=== PATIENT | male | born 1950 | race Caucasian/White ===

== ENCOUNTER 2017-09-01 07:22 | Day surgery (SDC) | payer MEDICARE, SELFPAY | END 2017-09-01 13:11 | disposition home or self-care (01) | PROVIDERS: Family Provider Family Medicine; Visit Provider Internal Medicine | DX: I25.119 Atherosclerotic heart disease of native coronary artery with unspecified angina pectoris (principal); I12.9 Hypertensive chronic kidney disease with stage 1 through stage 4 chronic kidney disease, or unspecified chronic kidney disease; N18.9 Chronic kidney disease, unspecified; Z95.1 Presence of aortocoronary bypass graft; I70.1 Atherosclerosis of renal artery | CPT/HCPCS: 36252; 37236; 37237; 80048; 85025; 85347; 93459; 99152; C1725; C1760; C1769; C1894; J1644; Q9967 ==

== ENCOUNTER → 2018-03-02 09:54 | Outpatient (CLI) | payer MEDICARE, SELFPAY ==
--- NOTE | 2018-03-02 10:08 | CT_ITS ---
CT abdomen pelvis wo con CLINICAL HISTORY: TECHNIQUE: Axial images obtained with sagittal and coronal reformats. All CT scans at this facility use one or more dose reduction techniques, viz.: automated exposure control; ma/kV adjustment per patient size (including targeted exams where dose is matched to indication; i.e. head) or iterative reconstruction technique. COMPARISON: CT scan abdomen pelvis 11/18/2007 PROCEDURE: No IV or oral contrast was used. FINDINGS: Lung bases: There is minimal post inflammatory scarring right middle lobe and right lower lobe. There is no pleural fluid. ABDOMEN: The liver and spleen appear grossly normal. The stomach is distended with ingested food particles. 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 There is a curious tubular high density structure overlying the splenic vein but this was seen on the previous study in 2007 and is unchanged in appearance and could be a broken portion of a catheter. The adrenal glands are normal. There are bilateral renal artery stents which were not seen on the previous study. The left kidney is lower limits of normal in size with mild cortical thinning and scarring. There is a nonobstructing calculus midpole right kidney. There is no obstructive uropathy of either kidney. There is prominent arteriosclerotic calcification of the abdominal aorta and proximal iliac arteries but there is no aneurysm. Small bowel appears normal. There is been previous appendectomy. There is a large amount stool in the cecum and ascending colon with scattered stool and gas in the descending colon. There is an opaque mesh in the midabdomen for previous ventral hernia repair the urinary bladder appears normal, the prostate is upper limits of normal in size. IMPRESSION: Postsurgical changes of the upper abdomen, bilateral renal artery stents and other nonacute findings as described.
== END ==
PROVIDERS: PCP Nurse Practitioner; Visit Provider Nurse Practitioner
DX: I82.3 Embolism and thrombosis of renal vein (principal)
CPT/HCPCS: 74176

== ENCOUNTER → 2018-04-20 13:43 | Outpatient (CLI) | payer MEDICARE, SELFPAY ==
--- NOTE | 2018-04-20 13:56 | CT_ITS ---
CT chest wo con HISTORY: Shortness of air, hemoptysis the left left ITS.REASON: HEMOPTYSIS ORDERING PHYSICIAN: Louise Lenz PATIENT AGE: 67 years COMPARISON: None Technique: Axial images obtained with sagittal and coronal reformats. All CT scans at the facility use one or more dose reduction, viz: automated exposure control, ma/kV adjustment per patient size (including targeted exams where dose is matched to indication, i.e. head), or iterative reconstruction technique. FINDINGS: Gas density is noted anterior to the upper trachea consistent with an old tracheostomy site. There has been prior median sternotomy. Coronary artery calcifications are present. Normal heart size. No evidence of pericardial effusion. There is a patulous air-filled esophagus. Extensive pulmonary fibrotic changes are once again noted. Prominent cavity is present in the right upper lobe posteriorly with nodular thickening of the cavity wall. The cavity itself measures 5.3 x 2.4 cm not significant change. Previously there was an air-fluid level within the cavity not readily apparent at this time. There is however nodularity along the inferior surface of the cavity is not readily apparent on the previous study. There is a cavitary lesion which extends from the larger cavity along its anterior and inferior aspect which has developed since the previous exam and extends inferiorly in the region of the major fissure. This area measures 4 x 1.8 cm. Bronchiectasis is present in the right apex similar to the previous exam Pulmonary fibrotic changes are present in the lower lobes. A fissural nodule noted in the right minor fissure at 8 mm. In the left apex there is pleural-parenchymal thickening as before with bronchiectasis similar to the previous study. Upper abdominal images once again shows pneumobilia. There is a moderate amount retained colonic feces. A linear opacity is present in the region of the splenic vein as previously described IMPRESSION: 1. Cavitary changes in the right upper lobe as described above. There is been inferior extension of the cavitation along the major fissure. The wall of the cavity is somewhat thickened and nodular along its posterior aspect. Differential diagnosis would include active tuberculosis, fungal infection with fungal ball, or cavitating neoplasm. There is associated bronchiectasis in the right upper lobe. 2. Persistent pleural parenchymal thickening in the left apex with bronchiectasis. 3. Pulmonary fibrotic changes
[2018-04-20 15:22] LABS: Alanine Aminotransferase 20 U/L (12-78); Albumin Level 2.8 gm/dL (3.4-5.0); Albumin/Globulin Ratio 0.6 (1.1-1.8); Alkaline Phosphatase 81 U/L (46-116); Anion Gap 11.4 mEq/L (5-15); Aspartate Amino Transferase 20 U/L (15-37); Bilirubin,Total 0.3 mg/dL (0.2-1.0); Blood Urea Nitrogen 28 mg/dL (7-18); Calcium 8.6 mg/dL (8.5-10.1); Carbon Dioxide 29 mmol/L (21.0-32.0); Chloride 104 mmol/L (98-107); Creatinine,Serum 1.89 mg/dL (0.70-1.30); Estimated Glomerular Filt Rate 36 ml/min (>60); GFR (African American) 44 ML/MIN (>60); Globulin 4.5 gm/dl (1.3-3.2); Glucose 251 mg/dL (74-106); Potassium 4.4 mmoL/L (3.5-5.1); Sodium 140 mmol/L (136-145); Total Protein,Serum 7.3 gm/dL (6.4-8.2)
== END ==
PROVIDERS: Internal Medicine; PCP Nurse Practitioner; Visit Provider Nurse Practitioner
DX: R04.2 Hemoptysis (principal)
CPT/HCPCS: 36415; 71250; 80053; 87305

== ENCOUNTER → 2018-04-24 14:01 | Outpatient (POV) | payer MEDICARE, SELFPAY | PROVIDERS: PCP Nurse Practitioner; Visit Provider Internal Medicine | DX: Z00.00 Encounter for general adult medical examination without abnormal findings (principal) ==

== ENCOUNTER → 2018-06-22 12:33 | Outpatient (CLI) | payer MEDICARE, SELFPAY ==
--- NOTE | 2018-06-22 12:37 | US_ITS ---
US kidney retroperitoneal comp HISTORY: ITS.REASON: BENIGHN HYPERTENSION, DIABETIC NEPHROPATHY ORDERING PHYSICIAN: Shayan Ash PATIENT AGE: 67 years Comparison: None FINDINGS: RIGHT KIDNEY:Unremarkable. Normal size and echogenicity. No hydronephrosis 10 x 6 x 7 cm LEFT KIDNEY:9 x 4 x 5.5 cm. There is cortical thinning. No hydronephrosis. There is a 16 mm cyst along the lower pole. OTHER FINDINGS: No other pertinent findings IMPRESSION: 1. No hydronephrosis. 2. 16 mm cyst lower pole left kidney with left renal cortical thinning
== END ==
PROVIDERS: PCP Nurse Practitioner; Visit Provider Internal Medicine Nephrology
DX: N18.3 Chronic kidney disease, stage 3 (moderate) (principal); E11.21 Type 2 diabetes mellitus with diabetic nephropathy; E78.5 Hyperlipidemia, unspecified; I70.1 Atherosclerosis of renal artery
CPT/HCPCS: 76770

== ENCOUNTER → 2018-06-27 08:30 | Outpatient (CLI) | payer MEDICARE, SELFPAY ==
[2018-06-27 08:58] LABS: Microscopic, Urine URINE MICROSCOPIC (MICROSCOPIC)
[2018-06-27 09:29] LABS: Basophils % 0.5 % (0.1-2.0); Eosinophils # 0.2 K/mm3 (0.0-0.4); Eosinophils % 2.8 % (0.1-12.0); Hematocrit 44.7 % (42.0-52.0); Lymphocytes # 1.5 K/mm3 (0.7-4.5); Lymphocytes % 21.8 K/mm3 (10-50); Mean Corpuscular HGB Conc 31.2 g/dL (31.8-35.4); Mean Corpuscular Hemoglobin 25.9 pg (27.0-31.2); Mean Platelet Volume 8.1 fl (7.4-10.4); Monocytes # 0.6 K/mm3 (0.1-1.0); Monocytes % 8.5 % (1.7-9.3); Neutrophils # 4.4 K/mm3 (1.8-7.8); Neutrophils % 66.4 % (37.0-80.0); Platelet Count 156 K/mm3 (142-424); Red Blood Count 5.39 M/mm3 (4.60-6.20); Red Cell Distribution Width 14.8 % (11.5-17.5); White Blood Count 6.7 K/mm3 (4.8-10.8)
[2018-06-27 09:45] LABS: Appearance,Urine CLEAR (Clear); Bilirubin,Urine Negative (Negative); Blood, Urine Negative (Negative); Color,Urine YELLOW (Yellow); Glucose,Urine (UA) 3+ (Negative); Ketones,Urine Negative (Negative); Leukocyte Esterase,Urine Negative (Negative); Nitrate,Urine Negative (Negative); Protein,Urine Negative (Negative); Specific Gravity, Urine 1.025 (1.005-1.030); Urobilinogen,Urine 0.2 EU/dl (0.2)
[2018-06-27 09:56] LABS: Bacteria,Urine Trace /lpf; Squamous Epithelial Cell,Urine Occasional #/hpf (0-5)
[2018-06-27 10:40] LABS: Albumin Level 3.1 gm/dL (3.4-5.0); Anion Gap 9.9 mEq/L (5-15); Blood Urea Nitrogen 15 mg/dL (7-18); Calcium 8.3 mg/dL (8.5-10.1); Carbon Dioxide 30 mmol/L (21.0-32.0); Chloride 106 mmol/L (98-107); Creatinine,Serum 1.28 mg/dL (0.70-1.30); Estimated Glomerular Filt Rate 56 ml/min (>60); GFR (African American) 68 ML/MIN (>60); Glucose 107 mg/dL (74-106); Phosphorous 3.2 mg/dL (2.4-4.9); Potassium 3.9 mmoL/L (3.5-5.1); Sodium 142 mmol/L (136-145)
[2018-06-28 11:17] LABS: Creatinine, Urine 128.7 mg/dL (Not Estab.)
[2018-06-29 09:02] LABS: Parathyroid Hormone Intact 51 pg/mL (15-65)
== END ==
PROVIDERS: PCP Nurse Practitioner; Visit Provider Internal Medicine Nephrology
DX: I10 Essential (primary) hypertension (principal); E11.21 Type 2 diabetes mellitus with diabetic nephropathy; E78.5 Hyperlipidemia, unspecified; I70.1 Atherosclerosis of renal artery
CPT/HCPCS: 36415; 80069; 81001; 82043; 82570; 83970; 85025

== ENCOUNTER → 2018-07-30 11:37 | Outpatient (CLI) | payer MEDICARE, SELFPAY ==
[2018-07-30 12:33] LABS: Alanine Aminotransferase 26 U/L (12-78); Albumin Level 3.3 gm/dL (3.4-5.0); Albumin/Globulin Ratio 0.8 (1.1-1.8); Alkaline Phosphatase 86 U/L (46-116); Anion Gap 11.9 mEq/L (5-15); Aspartate Amino Transferase 31 U/L (15-37); Bilirubin,Total 0.3 mg/dL (0.2-1.0); Blood Urea Nitrogen 19 mg/dL (7-18); Calcium 8.1 mg/dL (8.5-10.1); Carbon Dioxide 28 mmol/L (21.0-32.0); Chloride 104 mmol/L (98-107); Creatinine,Serum 1.58 mg/dL (0.70-1.30); Estimated Glomerular Filt Rate 44 ml/min (>60); GFR (African American) 54 ML/MIN (>60); Glucose 332 mg/dL (74-106); Potassium 3.9 mmoL/L (3.5-5.1); Sodium 140 mmol/L (136-145); Total Protein,Serum 7.3 gm/dL (6.4-8.2)
== END ==
PROVIDERS: Visit Provider Internal Medicine
DX: B49 Unspecified mycosis (principal); Z79.899 Other long term (current) drug therapy
CPT/HCPCS: 36415; 80053; 80299

== ENCOUNTER → 2018-08-21 14:51 | Outpatient (POV) | payer MEDICARE, SELFPAY | PROVIDERS: Visit Provider Internal Medicine | DX: Z00.00 Encounter for general adult medical examination without abnormal findings (principal) ==

== ENCOUNTER → 2018-11-20 09:55 | Outpatient (CLI) | payer MEDICARE, SELFPAY ==
--- NOTE | 2018-11-20 10:08 | CT_ITS ---
CT chest wo con HISTORY: Shortness of breath, follow-up pulmonary nodules, follow-up cavitary lesions ITS.REASON: SOB ORDERING PHYSICIAN: Per Suazo MD PATIENT AGE: 68 years COMPARISON: 04/20/2018 Technique: Axial images obtained following the administration of 75 mL of Optiray 350 . Sagittal, and coronal reformatted images are also generated and reviewed. All CT scans at the facility use one or more dose reduction, viz: automated exposure control, ma/kV adjustment per patient size (including targeted exams where dose is matched to indication, i.e. head), or iterative reconstruction technique. FINDINGS: Atherosclerotic changes are present in the thoracic aorta. Prior CABG. There is normal heart size. There are a few small mediastinal lymph nodes appear stable. There is extensive scarring in the lung apices with consolidation/collapse of the left upper lobe apical posterior segment with diffuse air bronchograms and bronchiectasis in this collapsed segment. Volume loss also noted in the right upper lobe with bronchiectasis. Right upper lobe cavity once again noted not significant changed with 5.7 x 2.4 cm. The nodularity along the lower aspect of the cavity however has shown improvement. The cavity extends inferiorly along the major fissure similar to the previous study there is volume loss of the apical and posterior segments of the right upper lobe as before. There is a stable 6 mm nodule along the minor fissure on the right unchanged. Pulmonary fibrotic changes are present in the lower lobes peripherally prominent on the right side than the left side but not significantly changed. There is mild dilatation of the thoracic esophagus nonspecific No acute bony findings. Upper abdominal images again demonstrates a linear high density structure within the splenic vein possibly related to a broken off catheter. Soft tissue density is noted inferior to the left lobe of liver cyst with postsurgical changes and unopacified bowel from prior Whipple procedure. IMPRESSION: 1. Extensive apical scarring with chronic volume loss with a cavity in the right upper lobe which is not significant changed in size. The nodularity along the lower aspect of the right upper lobe cavity however has shown improvement. 2. Pulmonary fibrotic changes with COPD. 3. Other nonacute findings as described above
[2018-11-20 13:02] VITALS: BP 114/60; BP 126/69; PULSE 90; PULSE 91; RESP 16; RESP 20; O2SAT 93; O2SAT 97
[2018-11-20 13:05] VITALS: PULSE 91
== END ==
PROVIDERS: PCP Nurse Practitioner; Visit Provider Internal Medicine
DX: R91.8 Other nonspecific abnormal finding of lung field (principal); R06.02 Shortness of breath
CPT/HCPCS: 71250; 94060; 94618; 94640

== ENCOUNTER → 2018-12-17 08:13 | Outpatient (POV) | payer MEDICARE, SELFPAY | PROVIDERS: Visit Provider Internal Medicine | DX: Z00.00 Encounter for general adult medical examination without abnormal findings (principal) ==

== ENCOUNTER → 2019-07-02 08:11 | Outpatient (CLI) | payer MEDICARE, SELFPAY ==
[2019-07-02 09:11] LABS: Basophils # 0.1 K/mm3 (0-0.2); Eosinophils # 0.2 K/mm3 (0.0-0.4); Eosinophils % 3.3 % (0.1-12.0); Hematocrit 49.2 % (42.0-52.0); Hemoglobin 15.5 g/dL (14.1-18.0); Lymphocytes # 2.1 K/mm3 (0.7-4.5); Lymphocytes % 33.5 % (10-50); Mean Corpuscular HGB Conc 31.6 g/dL (31.8-35.4); Mean Corpuscular Hemoglobin 27.7 pg (27.0-31.2); Mean Corpuscular Volume 87.7 fl (80-94); Monocytes # 0.4 K/mm3 (0.1-1.0); Monocytes % 6.4 % (1.7-9.3); Neutrophils # 3.5 K/mm3 (1.8-7.8); Neutrophils % 55.8 % (37.0-80.0); Platelet Count 147 K/mm3 (142-424); Red Blood Count 5.61 M/mm3 (4.60-6.20); Red Cell Distribution Width 13.6 % (11.5-17.5); White Blood Count 6.3 K/mm3 (4.8-10.8)
[2019-07-02 10:22] LABS: Albumin Level 3.5 gm/dL (3.4-5.0); Anion Gap 13.2 mEq/L (5-15); Blood Urea Nitrogen 20 mg/dL (7-18); Calcium 8.6 mg/dL (8.5-10.1); Carbon Dioxide 30 mmol/L (21.0-32.0); Chloride 104 mmol/L (98-107); Creatinine,Serum 1.65 mg/dL (0.70-1.30); Estimated Glomerular Filt Rate 42 ml/min (>60); GFR (African American) 51 ML/MIN (>60); Glucose 136 mg/dL (74-106); Phosphorous 3.9 mg/dL (2.4-4.9); Potassium 4.2 mmoL/L (3.5-5.1); Sodium 143 mmol/L (136-145)
[2019-07-03 13:16] LABS: Creatinine, Urine 159.1 mg/dL (Not Estab.); Microalbumin, Urine 81.6 ug/mL (Not Estab.)
[2019-07-04 11:02] LABS: Parathyroid Hormone Intact 41 pg/mL (15-65)
== END ==
PROVIDERS: Visit Provider Internal Medicine Nephrology
DX: N18.3 Chronic kidney disease, stage 3 (moderate) (principal); E11.21 Type 2 diabetes mellitus with diabetic nephropathy; E78.00 Pure hypercholesterolemia, unspecified; I70.1 Atherosclerosis of renal artery; Z79.84 Long term (current) use of oral hypoglycemic drugs
CPT/HCPCS: 36415; 80069; 82043; 82570; 83970; 85025

== ENCOUNTER → 2019-09-17 10:49 | Outpatient (CLI) | payer MEDICARE, SELFPAY ==
--- NOTE | 2019-09-17 11:15 | XR_ITS ---
PROCEDURE: XR SHOULDER LT MIN 2V CLINICAL INDICATION: LT SHOULDER PAIN Left shoulder pain COMPARISON: [id number] VIEWS from 05/16/2015 FINDINGS: No significant subacromial stenosis.No fracture, dislocation, lytic change, or blastic change evident. No significant degenerative change IMPRESSION: No acute findings. Dictated by: Job Garay MD 09/17/2019 14:38 Electronically signed by Job Garay MD in [facility] 09/17/2019 14:38
== END ==
PROVIDERS: PCP Nurse Practitioner Family; Visit Provider Nurse Practitioner Family
DX: M25.512 Pain in left shoulder (principal)
CPT/HCPCS: 73030

== ENCOUNTER → 2020-05-11 16:03 | Outpatient (CLI) | payer MEDICARE, SELFPAY ==
--- NOTE | 2020-05-11 | XR_ITS ---
PROCEDURE: XR CHEST 2V CLINICAL HISTORY: Dizziness and cough, shortness of air, former smoker COMPARISON: CR CXR2 CHEST-AP VIEW ONLY from 09/10/[address] chest wo con from 11/20/2018 FINDINGS: There has been a prior CABG. There is prominent biapical pleural thickening. There is a cavity in the right apex which has a similar appearance on the previous exam and prior chest CT parenchymal opacity is present in the right apex medially. Chronic pulmonary fibrotic changes are present in the lower lobes. No new areas of consolidation are evident. No acute bony findings IMPRESSION: Chronic pleural parenchymal scarring with pulmonary fibrosis and right apical cavity Dictated by: Job Garay MD 05/11/2020 16:40 Job Garay MD in [facility] 05/11/2020 16:40
== END ==
PROVIDERS: PCP Nurse Practitioner Family; Visit Provider Nurse Practitioner Family
DX: R42 Dizziness and giddiness (principal); R05 Cough
CPT/HCPCS: 71046

== ENCOUNTER → 2020-06-16 12:41 | Outpatient (CLI) | payer MEDICARE, SELFPAY ==
--- NOTE | 2020-06-16 12:41 | CT_ITS ---
PROCEDURE: CT CHEST WO CON CLINICAL INDICATION: Hemoptysis Copd COMPARISON: CT CHESTWO CT chest wo con from 11/20/2018 TECHNIQUE: Axial images obtained with sagittal and coronal reformats. All CT scans at the facility use one or more dose reduction, viz: automated exposure control, ma/kV adjustment per patient size (including targeted exams where dose is matched to indication, i.e. head), or iterative reconstruction technique. FINDINGS: HEART AND MEDIASTINAL STRUCTURES: There has been a prior median sternotomy. The extensive coronary artery calcification is present. There is mild nonspecific thickening of the esophagus. LUNGS AND PLEURAL SPACES: Extensive biapical pleural parenchymal thickening is noted with cavitation in the right apex. There is left apical volume loss with air bronchograms with bronchiectasis in both lung apices. There is a small mildly thickened wall cavity present in the right upper lobe laterally. The cavity portion is slightly smaller compared to the previous exam with no change in the soft tissue dimensions. Fissural nodules present in the right minor fissure containing calcium. Right hemidiaphragm is elevated. There are pulmonary fibrotic changes in the lung bases. There is some scarring noted in the right lower lobe posteriorly with chronic linear density. No new areas of consolidation are evident. BONY STRUCTURES: No acute bony abnormalities apparent. UPPER ABDOMEN: Pneumobilia is noted. Moderate amount of retained colonic feces. Prior cholecystectomy ADDITIONAL FINDINGS: No other significant abnormalities. IMPRESSION: Overall no significant change in the appearance of the chest with biapical pleural parenchymal thickening, right apical cavity, small cavity in the right upper lobe laterally, upper lobe bronchiectasis with chronic volume loss in the left apex and pulmonary fibrosis. Dictated by: Job Garay MD 06/17/2020 11:29 Job Garay MD in [facility] 06/17/2020 11:29
== END ==
PROVIDERS: PCP Nurse Practitioner Family; Visit Provider Internal Medicine Pulmonary Disease
DX: R04.2 Hemoptysis (principal)
CPT/HCPCS: 71250

== ENCOUNTER 2020-06-20 09:46 | Emergency (ER) | payer MEDICARE, SELFPAY ==
[2020-06-20 09:47] VITALS: BP 119/71; PULSE 53; RESP 16; TEMP 36.6; O2SAT 95; BMI 24.3
--- NOTE | 2020-06-20 09:53 | ECG_ITS ---
APPROVED REPORT Exam: Resting ECG HR:53 bpm ECG Measurements Heart Rate 53 AXES CA 222 P 50 QRSd 88 QRS 65 QT 436 T 108 QTc 409 Conclusion Sinus bradycardia with 1st degree AV block Nonspecific ST-T wave abnormalities Abnormal ECG Electronically signed by : Angel Sheppard, 06/22/2020 09:26:55
[2020-06-20 10:05] VITALS: BP 100/58; BP 71/45; PULSE 56; PULSE 85
--- NOTE | 2020-06-20 10:07 | [facility].EDDIZZ ---
ED Disposition Clinical Impression: Orthostatic hypotension, Prerenal azotemia Disposition: Home, Self-Care Condition on Discharge: Fair Additional Instructions: increase fluid intake and remain seated for 1-2min. prior to standing Referrals: Ema Curran APRN [Primary Care Provider] - - Critical Care Critical Care Time: No Attestation: On , the high probability of a clinically significant, sudden or life threatening deterioration of the following system(s) required my full and direct attention, intervention and personal management. The time I documented below is in addition to time spent performing reported procedures but includes the following listed in this critical care notation. Medical Decision Making - Medical Records Medical records reviewed: Yes: I reviewed the patient's medical records. - Pedro Inquiry Pt receiving controlled substance: No Vital Signs: 06/20/20 09:47 06/20/20 10:05 06/20/20 10:29 Temperature 97.9 F Temperature Source Oral Pulse Rate [Orthostatic Lying] 56 L Pulse Rate [Orthostatic Standing] 85 Pulse Rate [Radial] 53 L 58 L Respiratory Rate 16 18 Blood Pressure [Orthostatic Lying] 100/58 L Blood Pressure [Orthostatic Standing] 71/45 L Blood Pressure [Right Arm] 119/71 102/54 L Blood Pressure Mean [Right Arm] 87 70 Blood Pressure Source [Right Arm] Automatic Cuff Blood Pressure Position [Right Arm] Sitting Sitting 02 Sat by Pulse Oximetry 95 95 Oxygen Delivery Method Room Air Room Air - Lab Data Lab results reviewed: Yes: I reviewed the patient's lab results. Lab Results 06/20/20 10:00: WBC 8.1, RBC 5.61, Hgb 15.5, Hct 49.5, MCV 88.2, MCH 27.7, MCHC 31.4 L, RDW 14.3, Plt Count 173, MPV 8.2, Neut % (Auto) 66.1, Lymph % (Auto) 25.3, Travis % (Auto) 6.1, Eos % (Auto) 1.8, Baso % (Auto) 0.8, Neut # (Auto) 5.3, Lymph # (Auto) 2.0, Travis # (Auto) 0.5, Eos # (Auto) 0.2, Baso # (Auto) 0.1 06/20/20 10:00: Sodium 138, Potassium 4.4, Chloride 101, Carbon Dioxide 27, Anion Gap 14.4, BUN 36 H, Creatinine 2.00 H, Estimated Creat Clear 40, Estimated GFR 33 L, Est GFR ( Amer) 41 L, Glucose 254 H, Calcium 9.3, Troponin I < 0.01 Result diagrams: 06/20/20 10:00 06/20/20 10:00 Orders (Tests/Meds): ED MEDICATIONS Generic Name Dose Route Start Last Admin Trade Name Freq PRN Reason Stop Dose Admin Sodium Chloride 500 mls @ 999 mls/hr 06/20/20 10:15 06/20/20 10:16 Sod Chlor 0.9% 1000ml Bag IV 06/20/20 10:45 999 mls/hr .Q31M JEIMY Administration ORDERS Category Date Time Status Portable CXR [XR chest portable] Stat Exams 06/20/20 10:12 Taken Troponin I Q3H Lab 06/20/20 13:15 Ordered Troponin I Q3H Lab 06/20/20 16:15 Ordered - ECG Data Tracing #1 ECG initial impression date: 06/20/20 ECG initial impression time: 09:55 Arrhythmias present: sinus mindy, other (1st degree AV block pr interval 222ms) Conduction abnormalities present: 1st degree AV block Dizzy HPI - General Chief Complaint: Dizziness Stated Complaint: dizzy Time Seen by Provider: 06/20/20 10:00 Mode of Arrival: Wheelchair Source of Information: Patient Limitations: No Limitations Description of Symptoms (Recalled from ER Triage Doc. by RN): to ed per pvt car with c/o dizziness x several days pt states today became unbalanced and fell backwards. pt denies any injury after fall. pt denies nausea, vomiting, chest pain. pt wears o2 at night but has been wearing o2 during the day. - History of Present Illness HPI Narrative: This is a [age]-year-old male that presents with dizziness and fall prior to arrival. Patient got out of bed this morning began to walk toward his bedroom door when he felt dizzy immediately turned back and try to get to the bed however fell on the floor. Patient denies any injury as a result of his fall. Patient feels relatively back to normal with mild general weakness. He denies any focal weakness or deficit. No headache or change in
[2020-06-20 10:10] LABS: Basophils # 0.1 K/mm3 (0-0.2); Basophils % 0.8 % (0.1-2.0); Eosinophils # 0.2 K/mm3 (0.0-0.4); Eosinophils % 1.8 % (0.1-12.0); Hematocrit 49.5 % (42.0-52.0); Hemoglobin 15.5 g/dL (14.1-18.0); Lymphocytes % 25.3 % (10-50); Mean Corpuscular HGB Conc 31.4 g/dL (31.8-35.4); Mean Corpuscular Hemoglobin 27.7 pg (27.0-31.2); Mean Corpuscular Volume 88.2 fl (80-94); Mean Platelet Volume 8.2 fl (7.4-10.4); Monocytes # 0.5 K/mm3 (0.1-1.0); Monocytes % 6.1 % (1.7-9.3); Neutrophils # 5.3 K/mm3 (1.8-7.8); Neutrophils % 66.1 % (37.0-80.0); Platelet Count 173 K/mm3 (142-424); Red Blood Count 5.61 M/mm3 (4.60-6.20); Red Cell Distribution Width 14.3 % (11.5-17.5); White Blood Count 8.1 K/mm3 (4.8-10.8)
[2020-06-20 10:11] LABS: Chloride 101 mmol/L (98-107); Potassium 4.4 mmoL/L (3.5-5.1); Sodium 138 mmol/L (136-145)
--- NOTE | 2020-06-20 10:12 | XR_ITS ---
PROCEDURE: XR CHEST PORTABLE Referring Doctor: Owen Melgar Patient Age:69Y CLINICAL HISTORY: orthostasis Former smoker open-heart surgery CABG history COMPARISON: CT CT CHEST WO CON from 06/16/2020CXR August 2015 and May 11, 2020 . 1 FINDINGS: AP portable upright chest performed today is compared to previous CXR August 2015 and May 11, 2020 . The patient has had abundant chronic changes bilateral Prominent apical pleural and parenchymal scarring bilaterally again noted and appears similar with some retraction of the hilar regions bilaterally due to such but Left chest: Chronic changes towards the bases most evident towards left lung base. A difficult to exclude a subtle superimposed infiltrate here at the left lung base but most likely mainly viewing chronic changes and superimposed upon rib density accentuated by today's mall plant caretaker portable technique. If there are any respiratory symptoms a progressive chest symptoms follow-up two-view chest. Recommended Right chest:Elevation right hemidiaphragm again noted. Coarsening markings right lung base just above right hemidiaphragm seen to be most likely chronic in nature of and only slightly accentuated when compared April-most likely due to today's technique. Doubt significant change here at right lung base since April. Previous sternotomy and CABG. Heart appears upper normal in size but vascularity appears normal to upper normal. potline monitor leads are in place. Chest wall stable unremarkable. A now see that there is a recent CT chest from 06/16/2020 which shows basilar fibrotic again supporting we more likely viewing chronic changes in these areas. Chronic apical pleural thickening IMPRESSION: Abundant chronic changes bilaterally. . Prominent apical pleural and parenchymal scarring Initially possible subtle additional infiltrate at left lung base superimposed upon chronic changes-. However reviewing 06/16/[address] more likely accentuation of markings today merely due to today's higher contrast portable CXR technique ... Overall nothing definitively acute. If symptoms progress follow-up two-view chest recommended CABG Dictated by: Virgilio Chapa MD 06/20/2020 12:14 Virgilio Chapa MD in [facility] 06/20/2020 12:14
[2020-06-20 10:14] LABS: Anion Gap 14.4 mEq/L (5-15); Blood Urea Nitrogen 36 mg/dl (9-20); Calcium 9.3 mg/dl (8.4-10.2); Carbon Dioxide 27 mmol/L (22.0-30.0); Creatinine Clearance Estimated 40 mL/min (50-200); Estimated Glomerular Filt Rate 33 ml/min (>60); GFR (African American) 41 ML/MIN (>60); Glucose 254 mg/dl (74-100)
[2020-06-20 10:27] LABS: Troponin I < 0.01 ng/ml (0.00-0.034)
[2020-06-20 10:29] VITALS: BP 102/54; PULSE 58; RESP 18; O2SAT 95
[2020-06-20 11:09] VITALS: BP 111/59; PULSE 57; RESP 16; O2SAT 94
[2020-06-20 11:14] VITALS: BP 111/59; PULSE 57; RESP 15; TEMP 36.6; O2SAT 95
== END 2020-06-20 11:27 | disposition home or self-care (01) ==
PROVIDERS: Emergency Provider Emergency Medicine; PCP Nurse Practitioner Family
DX: I95.1 Orthostatic hypotension (principal); R39.2 Extrarenal uremia; I25.2 Old myocardial infarction; I25.10 Atherosclerotic heart disease of native coronary artery without angina pectoris; E11.65 Type 2 diabetes mellitus with hyperglycemia; K21.9 Gastro-esophageal reflux disease without esophagitis; I10 Essential (primary) hypertension; E78.5 Hyperlipidemia, unspecified; E03.9 Hypothyroidism, unspecified; Z87.891 Personal history of nicotine dependence; Z95.1 Presence of aortocoronary bypass graft; Z79.899 Other long term (current) drug therapy
CPT/HCPCS: 71045; 80048; 84484; 85025; 93005; 96365; 99283

== ENCOUNTER → 2020-06-25 14:51 | Outpatient (CLI) | payer MEDICARE, SELFPAY ==
[2020-06-25 17:12] LABS: NT Pro Brain Natriuretic Pep. 272 pg/mL (0-125)
--- NOTE | 2020-06-29 14:06 | PC.NURSE ---
PATIENT HAD CARDIAC EVENT MONITOR PLACED - BUT RETURNED DEVICE AND STATED HE WAS NOT GOING TO CONTINUE WITH THIS - NO CHARGE TO PATIENT.
== END ==
PROVIDERS: PCP Nurse Practitioner Family; Visit Provider Internal Medicine Cardiovascular Disease
DX: E78.2 Mixed hyperlipidemia (principal); I10 Essential (primary) hypertension; I20.9 Angina pectoris, unspecified; I70.1 Atherosclerosis of renal artery; I73.9 Peripheral vascular disease, unspecified; I95.1 Orthostatic hypotension; R06.00 Dyspnea, unspecified; Z95.1 Presence of aortocoronary bypass graft
CPT/HCPCS: 36415; 83880; 93270

== ENCOUNTER → 2020-07-02 08:21 | Outpatient (CLI) | payer MEDICARE, SELFPAY ==
--- NOTE | 2020-07-02 08:22 | CA_ITS ---
APPROVED REPORT Web Development Instructor: Christina Zuleta RVT Study Quality: Good Indications: htn, hx mateo renal stenting 2 yrs ago Risk Factors Hypertension Surgery/Intervention Renal Artery Stent : Renal Artery Doppler Origin (R) 179.1/ cm/sec Proximal (R) 140.1/ cm/sec Mid (R) 123.9/ cm/sec Distal (R) 79.1/ cm/sec Renal Aorta Ratio (R) 1.90 Segmental A. (R) 61.5/8.6 cm/sec RI: 0.86 Segmental A. Sup (R) 61.5/8.6 cm/sec Segmental A. Mid (R) 55.6/6.6 cm/sec Segmental A. Inf (R) 34.9/8.5 cm/sec Origin (L) 133.2/ cm/sec Proximal (L) 122.0/ cm/sec Mid (L) 91.8/ cm/sec Distal (L) 86.4/ cm/sec Renal Aorta Ratio (L) 1.41 Segmental A. (L) 62.0/12.9 cm/sec RI: 0.79 Segmental A. Sup (L) 62.0/12.9 cm/sec Segmental A. Mid (L) 43.8/2.2 cm/sec Segmental A. Inf (L) 37.8/13.0 cm/sec Renal Measurements Kidney Size (R) 9.8x5.7 cm Cortical Thickness (R) 1.8 cm Kidney Size (L) 8.9x5.3 cm Cortical Thickness (L) 0.7 cm Findings Study suggests no evidence of stenosis of the bilateral renal arteries. Cortical thinning seen left kidney. Conclusion Study suggests no evidence of stenosis of the bilateral renal arteries. Cortical thinning seen left kidney. Electronically signed by : Job Garay MD 07/02/2020 13:54:10
--- NOTE | 2020-07-02 08:22 | CA_ITS ---
APPROVED REPORT Electronic Device Repairer: Christina Zuleta RVT Laterality: Bilateral Study Quality: Good Indications: syncope Risk Factors Hypertension: Doppler Spectral Velocity Analysis ECA (R) 127.20/5.30 cm/s ECA (L) 90.50/6.70 cm/s dICA (R) 130.50/45.90 cm/s dICA (L) 273.50/55.90 cm/s Dayo (R) 171.70/57.60 cm/s Dayo (L) 321.70/127.10 cm/s pICA (R) 132.60/40.60 cm/s pICA (L) 325.50/134.80 cm/s dCCA (R) 72.70/21.40 cm/s dCCA (L) 76.30/14.20 cm/s pCCA (R) 79.10/21.40 cm/s mCCA (L) 89.00/19.50 cm/s pCCA (L) 60.60/9.00 cm/s Vert (R) 55.60/20.30 cm/s ICA/CCA 2.36 Vert (L) 29.10/6.90 cm/s ICA/CCA 4.27 Findings Study suggests 20-49% stenosis of the right internal cartoid artery. 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 Antegrade flow seen bilateral vertebral arteries. Conclusion Study suggests 20-49% stenosis of the right internal cartoid artery. 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 Antegrade flow seen bilateral vertebral arteries. Critical Notification Date: 07/02/2020 Time: 09:25 Physician Name: [facility]-Cardiology office Electronically signed by : Job Garay MD 07/02/2020 13:53:15
--- NOTE | 2020-07-02 08:22 | CA_ITS ---
APPROVED REPORT EXAM: Comprehensive 2D, Doppler, and color-flow Echocardiogram Cleater: Mounika Tejada RDCS Ht: 5 ft 11 in Wt: 180lbs BSA: 2.02 BP: 110/60 mmHg Indications: ABN EKG,CAD,CABG 2D Dimensions LVOT 1.59 cm (M/F) 1.5-2.5 M-Mode Dimensions RVDd 3.18 cm (0.9-2.6) LA Diam 3.12 cm (1.9-4.0) LVDd 4.36 cm (3.5-5.7) Ao Diam 3.16 cm (2.0-3.7) LVDs 2.65 cm (3.5-5.7) IVSd 0.79 cm (0.6-1.1) PWd 1.14 cm (0.6-1.1) EF (Teich) 69.90% FS 39.20% EDV (Teich) 85.80 mL ESV (Teich) 25.80 mL LV Diastology E Decel Time 367.00 (160-240 msec) E/A Ratio 0.6 MED E' 4.70 (< 7 cm/sec) E'/MED E' Ratio 6.62 (>14) LAT E' 5.70 (<10 cm/sec) E/LAT E' Ratio 5.46 (>14) Mitral Valve MV E Max Ascencion. 31.00 (40-130 cm/s) MV A Velocity 56.00 (40-130 cm/s) E/A Ratio 0.56 MV Decel. Time 367.00 (160-240 ms) MV PHT 107.00 ms Tricuspid Valve TR P. Velocity 290.00 cm/s RAP Estimate 10.00 mmHg RVSP 43.50 mmHg Left Ventricle Left atrium is mildly enlarged, left ventricle is normal size, mild concentric left ventricular hypertrophy, visually estimated ejection fraction 55% with no regional wall motion abnormality, grade 1 diastolic dysfunction seen without tissue Doppler evidence of raise left atrial pressure. Right Ventricle Right atrium and right ventricle are mildly enlarged with normal contractility. Aortic Valve Aortic valve is minimally thickened and fibrosed, there is no aortic stenosis or aortic insufficiency. Mitral Valve Mitral valve is grossly normal, there is mild mitral regurgitation. Tricuspid Valve Tricuspid valve is grossly normal, there is mild tricuspid regurgitation, tricuspid regurgitation jet velocity is inadequate for calculation of the right ventricular systolic pressure. Pulmonic Valve Pulmonic valve is poorly visualized. Great Vessels Aortic root is normal size. Pericardium No significant pericardial effusion noted. Conclusion 1. Mild biatrial enlargement, normal left ventricular size, mild concentric left ventricular hypertrophy, visually estimated ejection fraction 55% with no regional wall motion abnormality, grade 1 diastolic dysfunction seen without tissue Doppler evidence of raise left atrial pressure. 2. Mildly enlarged right ventricle with normal contractility. 3. Mild mitral and tricuspid regurgitation. 4. No significant pericardial effusion noted. Electronically signed by : Lucho Alberts, 07/02/2020 16:43:34
== END ==
PROVIDERS: PCP Nurse Practitioner Family; Visit Provider Internal Medicine Cardiovascular Disease
DX: R55 Syncope and collapse; R06.00 Dyspnea, unspecified; I20.9 Angina pectoris, unspecified; E78.2 Mixed hyperlipidemia; I10 Essential (primary) hypertension; I70.1 Atherosclerosis of renal artery; I73.9 Peripheral vascular disease, unspecified; Z95.1 Presence of aortocoronary bypass graft
CPT/HCPCS: 93306; 93880; 93976

== ENCOUNTER → 2020-07-03 06:48 | Outpatient (CLI) | payer MEDICARE, SELFPAY ==
--- NOTE | 2020-07-03 06:52 | CA_ITS ---
APPROVED REPORT Exam: Pharmacologic Technologist: Macy Hernandez, Ht: 5 ft 11 in Wt: 183 lbs BSA: 2.03 m2 HR: 61 bpm BP: 126/71 mmHg Rhythm: NSR,T WAVE INVERSION INF/LAT Medical History Medical History: Hyperlipidemia, Diabetic ??? Noninsulin Medications: Simvastatin,,,,, Asa,,,,, Gabapentin,,,,, Albuterol,,,,, Calcium,,,,, Cyclobenzaprine,,,,, CaNAGLIFLOZIN,,,,, DOcSATE SODIUM,,,,, GlimepERIDE,,,,, LevothyrXINE,,,,, Allergies: No known drug allergies Cardiac Risk Factors: Hyperlipidemia, Diabetes (non-insulin), FHX of CAD Stress Test Details Test: LEXISCAN HR Resting HR: 67 bpm Max Heart Rate (APMHR): 153 bpm Max HR Achieved: 93 bpm Target HR (85% APMHR): 130 bpm % of APMHR: 60 Recovery HR: 75 bpm BP Resting BP: 126.0/71.0 mmHg Max BP: 135.0/60.0 mmHg Recovery BP: 116.0/57.0 mmHg ECG Resting ECG: NSR,T WAVE INVERSION INF/LAT Clinical Reason for Termination: Completed Protocol Exercise duration: 04:18 min Highest Stage Achieved: Exercise capacity: 1.0 METs Stress ECG Conclusion DURING INFUSION PATIENT HAD NO SYMPTOMS. NO ARRHYTHMIAS/ECTOPY. NON-DIAGNOSTIC LEXISCAN STRESS. Test Summary RECOVERY 05:12 . . 73 . 106/ 56 . . REST 09:05 . . 67 . 126/ 71 . . Stage 1 . . . . . . . Myoview Injected Stage 1 01:00 . . 86 . . . . Stage 2 01:00 . . 91 . 134/ 62 . . Stage 3 01:00 . . 84 . 135/ 60 . . Stage 4 01:00 . . 81 . 108/ 57 . . Stage 4 01:18 . . 77 . 108/ 57 . Stop exercise at 04:18 RECOVERY 01:00 . . 75 . . . . RECOVERY 02:00 . . 74 . . . . RECOVERY 03:00 . . 75 . 116/ 57 . . RECOVERY 04:00 . . 79 . 106/ 56 . . RECOVERY 05:00 . . 72 . 106/ 56 . . RECOVERY 05:12 . . 73 . 106/ 56 . . Electronically signed by : Lucho Alberts, 07/03/2020 10:33:45
--- NOTE | 2020-07-03 06:52 | NM_ITS ---
APPROVED REPORT Exam: Nuclear Stress Test Indication: H/O PA, CABG, D.M., HYPERLIPIDEMIA, FM HX, SOB, SYNCOPE, FATIGUE Patient Location: Outpatient Stress Tech: Chelly Gillnkson [place] Tech:Carli Bautista, ARRT RT (R)(N)(M) Ht: 5 ft 11 in Wt: 175 lbs HR: 61 bpm BP: 126/71 mmHg BSA: 1.99 m2 BMI: 24.4 History: H/O PA, CABG, D.M., HYPERLIPIDEMIA, FM HX, SOB, SYNCOPE, FATIGUE Procedure: Patient received a 0.4 mg of intravenous Lexiscan, resting heart rate 61 bpm, resting blood pressure 126/71 mmHg, with Lexiscan maximum heart rate achived was 92 bpm which is Less than 85 % of the maximum predicted heart rate and blood pressure was 135/60 mmHg. With Lexiscan, patient denied any complaint of chest pain. Electrocardiogram Resting electrocardiogram showed sinus rhythm nonspecific ST-T changes, with Lexiscan there is less than 1.[address] segment depression noted from the baseline EKG. The EKG portion of the Lexiscan is nondiagnostic. Cardiac Stress and Resting SPECT Images: Cardiac Stress and Resting SPECT images were obtained using technetium 99m Myoview 32.1 mCi stress and 10.63 mCi at rest. Gated SPECT for analysis of segmental wall motion and calculation of the ejection fraction also done. Cardiac stress and resting SPECT images show uniform myocardial activity, computer derived ejection fraction is 53%, there is abnormal septal motion. Right ventricle is normal size and contractility. Conclusion: 1. The EKG portion of the Lexiscan Myoview is nondiagnostic. 2. No scintigraphic evidence of reversible ischemia seen, computer derived ejection fraction 53% with no regional wall motion abnormality, there is abnormal septal motion. Right ventricle is normal size and contractility. 3. Normal Lexiscan Myoview study. Electronically signed by : Lucho Alberts, 07/03/2020 13:02:05
== END ==
PROVIDERS: PCP Nurse Practitioner Family; Visit Provider Internal Medicine Cardiovascular Disease
DX: R06.00 Dyspnea, unspecified; R55 Syncope and collapse; I20.9 Angina pectoris, unspecified; E78.2 Mixed hyperlipidemia; I10 Essential (primary) hypertension; I70.1 Atherosclerosis of renal artery; I73.9 Peripheral vascular disease, unspecified; Z95.1 Presence of aortocoronary bypass graft
CPT/HCPCS: 78452; 93017; A9502; J2785

== ENCOUNTER → 2020-07-07 10:48 | Outpatient (CLI) | payer MEDICARE, SELFPAY ==
[2020-07-07 12:28] LABS: Coronavirus 19 IgG Antibody Negative (Negative); Coronavirus 19 IgM Antibody Negative (Negative)
== END ==
PROVIDERS: Visit Provider Internal Medicine Pulmonary Disease
DX: Z01.818 Encounter for other preprocedural examination (principal); J98.4 Other disorders of lung; J47.9 Bronchiectasis, uncomplicated
CPT/HCPCS: 36415; 86328

== ENCOUNTER 2020-07-08 08:57 | Day surgery (SDC) | payer MEDICARE, SELFPAY ==
[2020-07-06 15:19] VITALS: BMI 25.5
[2020-07-08] VITALS (11 sets, daily range): BP systolic 95–121; BP diastolic 53–72; PULSE 65–104; RESP 14–23; TEMP 36.1–36.4; O2SAT 90–97
[2020-07-08 09:38] LABS: POC Glucose,Bedside 122 (70-110)
--- NOTE | 2020-07-08 10:38 | HMH.ANESCL ---
[facility] Anesthesia Checklist - Patient Identification Patient Identification: Arm Band, Verbal (Name & ) - Structural Data Admitted From: Home Planned Operative Procedure/s: Transbronchial biopsy Consent for Planned Operative Procedure(s) Verified: Yes Verified Documents: Surgical Consent, History and Physical - NPO Status Verified Time NPO: 21:00 - Chart Verification Results Verified: CBC, BMP, PT, PTT, INR - Additional verifications Fingerstick Blood Glucose: 122 Anesthesia Reactions: No Hx Blood Transfusions: Yes Blood Transfusion Reaction: No - Airway Assessment C-Spine Mobility Assessed: Yes (MP 2, TMD 3) TMJ Mobility Assessed: Yes Dentition: Good Dentition - Neurological Assessment Level of Consciousness: Awake, Appropriate, Follows Commands Hx Seizures: No Numbness or tingling in extremities: Yes (Peripheral neuropathy) - Anesthesia Plan Anesthesia Risk discussed: Yes Anesthesia Plan: Verified ASA Class: III Anesthesia Type: General [facility] History I have reviewed the patient's past medical history: Yes Medical History: Reports:: Cancer (pancreatic), Chronic Obstructive Pulmonary Disease (COPD), Coronary Artery Disease, Diabetes Mellitus Type 2, Gastroesophageal Reflux Disease(GERD), Hiatal Hernia, Hyperlipidemia, Hypertension, Lung Disease, Myocardial Infarction, Palpitations, Renal Disease Denies:: Diabetes Mellitus Type 1, Internal Pacemaker, MRSA, Seizures *Have you ever received a pneumonia vaccine?: No *Have you received a flu vaccine this season?: No Other Medical History: Reports: Arthritis, Hypothyroidism. Denies: Blood Transfusion Reaction Comment:: Hx Trach post whipple procedure Anesthesia experience/problems:: No prior complications Other Surgeries: Yes: Cardiac Catheterization, Hernia Repair, Other (CABG, LHC, 2 stents in kidney, pancreas surgery). No: Pacemaker Amputation: No Fractures: No - *Social History Last grade of school completed: 9th or 10th Smoking Status: Former smoker Tobacco Type: cigarettes #Yrs smoked (if former smoker): 20 Alcohol Intake: never Substance Use Type: denies use *Occupational Status:: retired Housing: house Household Members: spouse *Travel in the last 8 weeks: None Family Hx:: Coronary Artery Disease, Heart Attack
--- NOTE | 2020-07-08 11:49 | P.PN_ITS ---
[facility] Anesthesia Record Part I Intake, IV Amount: 700 Estimated blood loss (mL): 0 Urine output (mL): 0 Blood Pressure: 118/62 SaO2: 93 Pulse Rate: 104 Respiratory Rate: 16 Temperature: 97 F Patient is:: Drowsy, Stable Stable to PACU at:: 11:45
--- NOTE | 2020-07-08 12:18 | XR_ITS ---
PROCEDURE: XR CHEST AP CLINICAL HISTORY: BRONCHOSCOPY COMPARISON: CR CXR2 CHEST-AP VIEW ONLY from 09/10/2015 CR XR CHEST 2V from 05/11/[address] CHEST WO CON from 06/16/2020 CR XR CHEST PORTABLE from 06/20/[address] ANGIO NECK from 07/09/2020 FINDINGS: Fluoroscopy time: 1 minutes. Two images are submitted with the C-arm showing bronchus scope in place with biopsy catheter through the bronchus scope in the right upper lobe. IMPRESSION: Bronchoscopy with biopsy with fluoroscopic guidance Dictated by: Job Garay MD 08/04/2020 17:06 Job Garay MD in [place] 08/04/2020 17:06
--- NOTE | 2020-07-09 08:36 | HMH.BRONCH ---
- Procedure: Date: 07/08/20 Patient Date of :: 1950 Procedure Performed:: Bronchoscopy with bronchoalveolar lavage and transbronchial biopsies Indications:: Cavitary lung lesions Performing Provider:: Maulik Norman MD Referring Provider:: Dr. Suazo Sedation:: General anesthesia Procedure:: Patient was intubated using bronchoscopy. 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 Clean bronchoscopy was introduced via 8 ET tube and airways were examined up to subsegmental bronchi. No evidence of active bleeding noted. BAL was performed in the right upper lobe apical segment with instillation of 80 cc of normal saline with return of 30 cc. BAL fluid was sent for BAL cell count and differential, bacterial fungal and AFB staining and cultures. Transbronchial biopsies were performed in the right upper lobe. A total of 9 biopsies were performed in the same lobe. 4 samples were sent for cultures and normal saline and the remaining 6 samples were sent for cytopathology formalin. Patient experienced minimal bleeding with the biopsies a total of estimated 10 cc of bleeding was noted. Cold saline was instilled. On reexamination of the airway 5 minutes after the procedure did not show any evidence of any active bleeding. Prospective pictures were saved in the patient's chart. Total fluoroscopy time for the procedure was 2 minutes and 57 seconds Of note during intubation patient was also noted to have a tracheal stenosis in the upper one third of the trachea likely from his prior tracheostomy. This patient will be a difficult airway and will recommend bronchoscopy intubation if needed in the future. Findings:: Please see the procedure note Recommendations:: Follow with the BAL and biopsy results in the clinic as previously scheduled Complications:: Minimal bleeding estimated 10 cc Estimated blood obtained (mL): 10
--- NOTE | 2020-07-09 11:47 | HMH.ANESII ---
[facility] Anesthesia Record Part II Discharge Time: 12:17 Destination: Surgical Day Care (OP Surgery) PACU nurse assessment reviewed?: Yes Patient Condition:: Good Anesthesia Complications:: None Swallowing reflex intact?: Yes Cyanosis?: No Blood Pressure: 100/63 Pulse Rate: 76 Temperature: 97.5 F Mental Status: Alert & Oriented Pain level:: 0 Nausea and/or vomitting:: None Intake, IV Amount: 0
[2020-07-09 11:50] VITALS: BP 100/63; PULSE 76; TEMP 36.4
== END 2020-07-08 13:05 | disposition home or self-care (01) ==
LOC: OR 08:59
PROVIDERS: PCP Nurse Practitioner Family; Visit Provider Internal Medicine Pulmonary Disease
DX: J84.10 Pulmonary fibrosis, unspecified (principal); J98.4 Other disorders of lung; J44.9 Chronic obstructive pulmonary disease, unspecified; E11.9 Type 2 diabetes mellitus without complications; J39.8 Other specified diseases of upper respiratory tract; R91.1 Solitary pulmonary nodule; Z79.899 Other long term (current) drug therapy; Z95.1 Presence of aortocoronary bypass graft; R06.02 Shortness of breath; E03.9 Hypothyroidism, unspecified; I95.1 Orthostatic hypotension; Z87.891 Personal history of nicotine dependence
CPT/HCPCS: 31624; 31628; 71045; 76000; 82962; 87070; 87077; 87102; 87116; 87186; 87205; 87206; 88305; 88312; 89051; J2405

== ENCOUNTER → 2020-07-09 09:54 | Outpatient (CLI) | payer MEDICARE, SELFPAY ==
--- NOTE | 2020-07-09 09:55 | CT_ITS ---
Procedure: CT ANGIO NECK CLINICAL HISTORY: severe harriett Carotid artery stenosis, dizziness, abnormal duplex COMPARISON: No exams were available for comparison TECHNIQUE: IV Contrast: 100ml Optiray 350 Axial images obtained with sagittal and coronal reformats. All CT scans at the facility use one or more dose reduction, viz: automated exposure control, ma/kV adjustment per patient size (including targeted exams where dose is matched to indication, i.e. head), or iterative reconstruction technique. FINDINGS: There are atheromatous changes the aortic arch with calcific plaque. No significant stenosis of the ostia of the great vessels. Scattered atheromatous plaque is noted. Right carotid: There is mild eccentric fibrocalcific plaque in the mid aspect of the right common carotid with approximately 30 percent stenosis. There is scattered plaque in the right carotid. There is 40 percent stenosis of the proximal aspect of the right ICA. Calcific plaque is present involving the cavernous portion of the right ICA with approximately 50 percent stenosis. Left carotid: There is 60 percent smooth stenosis involving the mid aspect of the left common carotid due to eccentric soft plaque.. Fibrocalcific plaque is present in the left carotid bulb causing approximately 40 percent stenosis. Just distal to this area of calcific plaque there is a severe short-segment stenotic lesion causing approximately 80 percent stenosis.. There is calcific plaque in the intracranial portion of the left ICA with 50 percent stenosis of the supraclinoid portion. Severe stenosis involves the ostium of the right vertebral of approximately 80-90 percent. The right vertebral is dominant. The left vertebral is very small. Nonvascular there are pulmonary fibrotic changes with apical pleural thickening in both lung apices with cavitation in the right upper lobe. A nodular density is present in the area of cavitation. This nodule measures approximately 2 cm. Fungus ball within the cavitation is considered. IMPRESSION: 1. 30 percent stenosis mid aspect right common carotid, 40 percent stenosis proximal right ICA, 50 percent stenosis cavernous portion right ICA. 2. 60 percent smooth stenosis mid left common carotid with severe 75-80 percent stenosis of the proximal left ICA and 50 percent stenosis of the supraclinoid portion of the left ICA. 3. Severe 80-90 percent stenosis of the ostium of the dominant right vertebral artery with very small left vertebral artery 4. Biapical pulmonary fibrotic changes with apical pleural thickening with bronchiectasis with a 4 cm cavity in the right apex with a nodular soft tissue density within the cavity suspicious for fungus ball. Dictated by: Job Garay MD 07/09/2020 15:01 Job Garay MD in [facility] 07/09/2020 15:01
[2020-07-09 10:37] LABS: Blood Urea Nitrogen 22 mg/dl (9-20); Estimated Glomerular Filt Rate 43 ml/min (>60)
[2020-07-09 10:38] LABS: GFR (African American) 52 ML/MIN (>60)
== END ==
PROVIDERS: PCP Nurse Practitioner Family; Visit Provider Internal Medicine Cardiovascular Disease
DX: I65.23 Occlusion and stenosis of bilateral carotid arteries (principal)
CPT/HCPCS: 36415; 70498; 82565; 84520; Q9967

== ENCOUNTER → 2020-08-10 11:01 | Outpatient (CLI) | payer MEDICARE, SELFPAY ==
[2020-08-10 11:47] LABS: Basophils # 0.1 K/mm3 (0-0.2); Basophils % 0.9 % (0.1-2.0); Eosinophils % 0.6 % (0.1-12.0); Hematocrit 48.5 % (42.0-52.0); Hemoglobin 16.2 g/dL (14.1-18.0); Lymphocytes # 0.6 K/mm3 (0.7-4.5); Lymphocytes % 10.7 % (10-50); Mean Corpuscular HGB Conc 33.4 g/dL (31.8-35.4); Mean Corpuscular Hemoglobin 28.6 pg (27.0-31.2); Mean Corpuscular Volume 85.7 fl (80-94); Mean Platelet Volume 9.4 fl (7.4-10.4); Monocytes # 0.5 K/mm3 (0.1-1.0); Monocytes % 9.7 % (1.7-9.3); Neutrophils # 4.2 K/mm3 (1.8-7.8); Neutrophils % 78.2 % (37.0-80.0); Platelet Count 104 K/mm3 (142-424); Red Blood Count 5.65 M/mm3 (4.60-6.20); Red Cell Distribution Width 14.1 % (11.5-17.5); White Blood Count 5.4 K/mm3 (4.8-10.8)
[2020-08-10 12:25] LABS: Chloride 99 mmol/L (98-107); Potassium 4.1 mmoL/L (3.5-5.1); Sodium 135 mmol/L (136-145)
[2020-08-10 12:27] LABS: Alanine Aminotransferase 11 U/L (12-78); Aspartate Amino Transferase 34 U/L (17-59); Blood Urea Nitrogen 20 mg/dl (9-20); Estimated Glomerular Filt Rate 51 ml/min (>60); GFR (African American) 61 ML/MIN (>60)
[2020-08-10 12:28] LABS: Albumin Level 3.8 g/dl (3.5-5.0); Albumin/Globulin Ratio 1.1 (1.1-1.8); Alkaline Phosphatase 82 U/L (38-126); Anion Gap 11.1 mEq/L (5-15); Bilirubin,Total 0.7 mg/dl (0.2-1.3); Calcium 8.5 mg/dl (8.4-10.2); Carbon Dioxide 29 mmol/L (22.0-30.0); Globulin 3.4 g/dL (1.3-3.2); Glucose 215 mg/dl (74-100); Total Protein,Serum 7.2 g/dl (6.3-8.2)
[2020-08-10 12:33] LABS: C-Reactive Protein 12.6 mg/L (0-4)
[2020-08-10 12:58] LABS: Thyroid Stimulating Hormone 1.32 uIU/mL (0.465-4.68)
== END ==
PROVIDERS: Visit Provider Nurse Practitioner Family
DX: R42 Dizziness and giddiness (principal); R53.1 Weakness
CPT/HCPCS: 36415; 80053; 84443; 85025; 86140

== ENCOUNTER 2020-08-19 14:17 | Inpatient (IN) | payer MEDICARE, SELFPAY ==
[2020-08-19] VITALS (11 sets, daily range): BP systolic 116–136; BP diastolic 62–76; PULSE 69–85; RESP 18–28; TEMP 36.7–37.1; O2SAT 66–97; BMI 22.1; BMI 21.5
--- NOTE | 2020-08-19 14:35 | XR_ITS ---
PROCEDURE: XR CHEST PORTABLE CLINICAL HISTORY: SOA, cough COMPARISON: CR XR CHEST 2V from 05/11/[address] CHEST WO CON from 06/16/2020 CR XR CHEST PORTABLE from 06/20/2020 CR XR CHEST AP from 07/08/[address] ANGIO NECK from 07/09/2020 FINDINGS: There has been a prior CABG. There is left apical pleural thickening as before. There is pleural thickening also in the right apex. Cavitation is noted in the right upper lobe. Chronic changes are present in the lower lobes on both sides. One cannot exclude the possibility of superimposed pneumonia due to these chronic changes. IMPRESSION: Right apical cavitation with pleural thickening with left apical pleural thickening and by lateral lower lobe chronic changes of the lungs. Dictated by: Job Garay MD 08/19/2020 15:13 Job Garay MD in [place] 08/19/2020 15:13
--- NOTE | 2020-08-19 14:45 | PC.NURSE ---
notified rad and RT of orders on pt
[2020-08-19 15:02] LABS: Basophils % 0.3 % (0.1-2.0); Eosinophils % 0.2 % (0.1-12.0); Hematocrit 46.5 % (42.0-52.0); Hemoglobin 15.5 g/dL (14.1-18.0); Lymphocytes # 0.8 K/mm3 (0.7-4.5); Lymphocytes % 10.6 % (10-50); Mean Corpuscular HGB Conc 33.3 g/dL (31.8-35.4); Mean Corpuscular Hemoglobin 28.2 pg (27.0-31.2); Mean Corpuscular Volume 84.5 fl (80-94); Mean Platelet Volume 8.1 fl (7.4-10.4); Monocytes # 0.5 K/mm3 (0.1-1.0); Monocytes % 6.5 % (1.7-9.3); Neutrophils # 6.2 K/mm3 (1.8-7.8); Neutrophils % 82.4 % (37.0-80.0); Platelet Count 207 K/mm3 (142-424); Red Cell Distribution Width 14.1 % (11.5-17.5); White Blood Count 7.5 K/mm3 (4.8-10.8)
[2020-08-19 15:08] LABS: Alanine Aminotransferase 11 U/L (12-78); Albumin Level 3.4 g/dl (3.5-5.0); Albumin/Globulin Ratio 0.9 (1.1-1.8); Alkaline Phosphatase 109 U/L (38-126); Anion Gap 13.8 mEq/L (5-15); Aspartate Amino Transferase 33 U/L (17-59); Bilirubin,Total 0.8 mg/dl (0.2-1.3); Blood Urea Nitrogen 17 mg/dl (9-20); Calcium 8.6 mg/dl (8.4-10.2); Carbon Dioxide 27 mmol/L (22.0-30.0); Chloride 99 mmol/L (98-107); Creatinine Clearance Estimated 56 mL/min (50-200); Estimated Glomerular Filt Rate 55 ml/min (>60); GFR (African American) 67 ML/MIN (>60); Globulin 3.7 g/dL (1.3-3.2); Glucose 215 mg/dl (74-100); Potassium 3.8 mmoL/L (3.5-5.1); Sodium 136 mmol/L (136-145); Total Protein,Serum 7.1 g/dl (6.3-8.2)
[2020-08-19 15:09] LABS: Lactic Acid 1.6 mmol/L (0.7-2.1)
[2020-08-19 15:25] LABS: VBG Base Excess -2.8 mmol/L (-2.4-2.3); VBG Oxygen Saturation 46.1 % (50-70); VBG PCO2 43.7 mmol/L (35-51); VBG PH 7.34 mmol/L (7.31-7.41); VBG PO2 24.8 mmol/L (28-40); VBG Total CO2 24.3 mmol/L (23-27)
--- NOTE | 2020-08-19 16:07 | PC.NURSE ---
ANT SANCHEZ speaking with Dr. Carrera
[2020-08-19 16:19] LABS: Coronavirus 19 IgG Antibody Positive (Negative); Coronavirus 19 IgM Antibody Positive (Negative)
--- NOTE | 2020-08-19 16:19 | PC.NURSE ---
notified ER of positive covid igm
--- NOTE | 2020-08-19 16:20 | PC.NURSE ---
called to notify pt that ER MD has spoken with Dr. Carrera and we plan to admit him to the hospital
--- NOTE | 2020-08-19 16:24 | PC.NURSE ---
[employer] sales supervisor advised of admission
--- NOTE | 2020-08-19 16:27 | PC.NURSE ---
notified pharmacy of remdisivir consult for admission.
[2020-08-19 16:29] LABS: Adenovirus,PCR Not Detected (NotDetected); Bordetella Pertussis Not Detected (NotDetected); Chlamydophila Pneumoniae, PCR Not Detected (NotDetected); Coronavirus 229E Not Detected (NotDetected); Coronavirus NL63 Not Detected (NotDetected); Coronavirus OC43 Not Detected (NotDetected); Coronovirus HKU1,PCR Not Detected (NotDetected); Human Metapneumovirus Not Detected (NotDetected); Influenza A, PCR Not Detected (NotDetected); Influenza AH1, 2009 Not Detected (NotDetected); Influenza AH1, PCR Not Detected (NotDetected); Influenza AH3,PCR Not Detected (NotDetected); Influenza B, PCR Not Detected (NotDetected); Mycoplasma Pneumoniae, PCR Not Detected (NotDetected); Parainfluenza 1, PCR Not Detected (NotDetected); Parainfluenza 2, PCR Not Detected (NotDetected); Parainfluenza 3, PCR Not Detected (NotDetected); Parainfluenza 4, PCR Not Detected (NotDetected); Respiratory Syncytial Virus Not Detected (NotDetected); Rhinovirus/Enterovirus Not Detected (NotDetected)
--- NOTE | 2020-08-19 16:38 | HMH.EDGENADL ---
ED Disposition Clinical Impression: COVID-19 Respiratory failure Qualifiers: Chronicity: acute on chronic Respiratory failure complication: hypoxia Qualified Code(s): J96.21 - Acute and chronic respiratory failure with hypoxia Disposition: Admitted As Inpatient Condition on Discharge: Fair - Critical Care Critical Care Time: Yes Attestation: On 08/19/20, the high probability of a clinically significant, sudden or life threatening deterioration of the following system(s) required my full and direct attention, intervention and personal management. The time I documented below is in addition to time spent performing reported procedures but includes the following listed in this critical care notation. Vital system(s) involved:: Respiratory Failure My critical care processes included: Assessment & monitoring of V/S, Initial and Re-exams, Data Review/Interpretation, Coordinating Care, Medication Orders and management, Documentation Medical Decision Making - Medical Records Medical records reviewed: Yes: I reviewed the patient's medical records. - Pedro Inquiry Pt receiving controlled substance: No Vital Signs: 08/19/20 14:21 08/19/20 14:36 08/19/20 14:47 Temperature 98.0 F Temperature Source Oral Pulse Rate [Right Radial] 78 77 Respiratory Rate 24 Blood Pressure [Right Arm] 130/62 130/62 Blood Pressure Mean [Right Arm] 84 84 Blood Pressure Source [Right Arm] Automatic Cuff Automatic Cuff Blood Pressure Position [Right Arm] Sitting Supine 02 Sat by Pulse Oximetry 66 L 86 L 92 L Oxygen Delivery Method Room Air Nasal Cannula Oxygen Flow Rate (LPM) 3 08/19/20 15:06 08/19/20 16:10 Temperature Temperature Source Pulse Rate [Right Radial] 75 69 Respiratory Rate Blood Pressure [Right Arm] 117/67 120/63 Blood Pressure Mean [Right Arm] 83 82 Blood Pressure Source [Right Arm] Blood Pressure Position [Right Arm] Supine 02 Sat by Pulse Oximetry 92 L 93 L Oxygen Delivery Method Nasal Cannula Oxygen Flow Rate (LPM) 3 - Lab Data Lab Results 08/19/20 14:38: WBC 7.5, RBC 5.50, Hgb 15.5, Hct 46.5, MCV 84.5, MCH 28.2, MCHC 33.3, RDW 14.1, Plt Count 207, MPV 8.1, Neut % (Auto) 82.4 H, Lymph % (Auto) 10.6, Ashley % (Auto) 6.5, Eos % (Auto) 0.2, Baso % (Auto) 0.3, Neut # (Auto) 6.2, Lymph # (Auto) 0.8, Ashley # (Auto) 0.5, Eos # (Auto) 0.0, Baso # (Auto) 0.0 08/19/20 14:38: Sodium 136, Potassium 3.8, Chloride 99, Carbon Dioxide 27, Anion Gap 13.8, BUN 17, Creatinine 1.30 H, Estimated Creat Clear 56, Estimated GFR 55 L, Est GFR ( Amer) 67, Glucose 215 H, Calcium 8.6, Total Bilirubin 0.8, AST 33, ALT 11 L, Alkaline Phosphatase 109, Total Protein 7.1, Albumin 3.4 L, Globulin 3.7 H, Albumin/Globulin Ratio 0.9 L 08/19/20 14:38: Lactate 1.6 08/19/20 14:38: SARS-CoV-2 IgG Ab (Rapid) Positive A, SARS-CoV-2 IgM Ab (Rapid) Positive A 08/19/20 14:44: VBG pH 7.34, VBG pCO2 43.7, VBG pO2 24.8 L, VBG HCO3 23.0, VBG Total CO2 24.3, VBG O2 Saturation 46.1 L, VBG Base Excess -2.8 L Result diagrams: 08/19/20 14:38 08/19/20 14:38 Orders (Tests/Meds): ORDERS Category Date Time Status Full Resp Panel w/COVID ([facility]) Routine Lab 08/19/20 16:21 Received Blood Culture Stat Micro 08/19/20 14:38 Received Medical Decision Narrative: Sravanthi 9-year-old male brought into emergency department for evaluation of shortness of air. Oxygen saturation of 62% on room air on arrival, which rapidly increased to 92% on 2 L nasal cannula. Otherwise hemodynamically stable and awake, alert, oriented x4. Differential diagnosis includes but is not limited to COVID-19, bacterial pneumonia, PE, worsening aspergillosis. 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 Labs obtained including CBC, CMP, VBG, IgM, IgG, and Covid swab. Labs largely unremarkable with n
--- NOTE | 2020-08-19 17:03 | PC.NURSE ---
lance sarmiento in lab states pt covid swab is not running yet, states the swab that is on right now has 26 minutes left and then this pts will go on.
--- NOTE | 2020-08-19 18:01 | PC.NURSE ---
Addendum entered by Oralia Reddy RN 08/19/20 18:03: Pt still currently in ER awaiting covid swab results Original Note: Spoke w/Dr Carrera who states to order SSI ACHS for patient
[2020-08-19 18:58] LABS: Coronavirus 19, PCR Detected (NotDetected)
--- NOTE | 2020-08-19 18:59 | PC.NURSE ---
notified ER MD pt covid swab is positive. ER MD states pt is ready for admission notified guillermina in the covid unit that I will bring pt up for report.
[2020-08-19 20:29] LABS: POC Glucose,Bedside 240 (70-110)
[2020-08-19 21:22] LABS: C-Reactive Protein 56.4 mg/L (0-4)
[2020-08-20] VITALS: BP 135/73; PULSE 68; RESP 24; TEMP 36.6; O2SAT 93
[2020-08-20 03:49] LABS: POC Glucose,Bedside 211 (70-110)
[2020-08-20 04:00] VITALS: BP 136/74; PULSE 73; RESP 26; TEMP 36.4; O2SAT 94
--- NOTE | 2020-08-20 04:41 | PC.NURSE ---
pt has rested well t/o shift, has complained of sweating several times t/o shift, has remained afebrile and spot check FSBS done to check for low blood sugar, FSBS was 211, has had no complaints of SOA or chest pain, remains on 3L NC with O2 sats 92-94%, O2 sats have dropped as low as 87% with exertion and return to baseline in 10-15 minutes
[2020-08-20 06:22] LABS: POC Glucose,Bedside 235 (70-110)
[2020-08-20 06:41] LABS: Basophils % 0.2 % (0.1-2.0); Eosinophils % 0.1 % (0.1-12.0); Hematocrit 44.3 % (42.0-52.0); Lymphocytes # 0.4 K/mm3 (0.7-4.5); Lymphocytes % 12.5 % (10-50); Mean Corpuscular HGB Conc 33.8 g/dL (31.8-35.4); Mean Corpuscular Hemoglobin 28.2 pg (27.0-31.2); Mean Corpuscular Volume 83.3 fl (80-94); Mean Platelet Volume 8.6 fl (7.4-10.4); Monocytes # 0.2 K/mm3 (0.1-1.0); Monocytes % 4.7 % (1.7-9.3); Neutrophils # 2.9 K/mm3 (1.8-7.8); Neutrophils % 82.6 % (37.0-80.0); Platelet Count 169 K/mm3 (142-424); Red Blood Count 5.32 M/mm3 (4.60-6.20); Red Cell Distribution Width 13.8 % (11.5-17.5); White Blood Count 3.5 K/mm3 (4.8-10.8)
[2020-08-20 06:46] LABS: Chloride 102 mmol/L (98-107)
[2020-08-20 06:47] LABS: Potassium 4.7 mmoL/L (3.5-5.1); Sodium 137 mmol/L (136-145)
[2020-08-20 06:49] LABS: Blood Urea Nitrogen 18 mg/dl (9-20); Creatinine Clearance Estimated 71 mL/min (50-200); Estimated Glomerular Filt Rate 75 ml/min (>60); GFR (African American) 90 ML/MIN (>60)
[2020-08-20 06:50] LABS: Anion Gap 10.7 mEq/L (5-15); Calcium 8.7 mg/dl (8.4-10.2); Carbon Dioxide 29 mmol/L (22.0-30.0); Glucose 257 mg/dl (74-100)
--- NOTE | 2020-08-20 07:28 | HMH.PHAVTE ---
[facility] Pharmacy VTE Monitoring - Patient Demographics Admission date: 08/19/20 Report Date: 08/20/20 Time: 07:28 Allergies/Adverse Reactions: Patient Allergies No Known Allergies Allergy (Verified 08/19/20 21:00) Height: 1.8 m Weight: 69.9 kg Patient Problems: Current Active Problems COVID-19 (Acute) Respiratory failure (Acute) - VTE Risk Labs: VTE Related Lab Results Hgb 15.0 g/dL (14.1-18.0) 08/20/20 06:00 Hct 44.3 % (42.0-52.0) 08/20/20 06:00 Plt Count 169 K/mm3 (142-424) 08/20/20 06:00 BUN 18 mg/dl (9-20) 08/20/20 06:00 Creatinine 1.00 mg/dl (0.66-1.25) D 08/20/20 06:00 Estimated Creat Clear 71 mL/min (50-200) 08/20/20 06:00 Was VTE Risk Assessment Performed: Yes VTE Score: 8 VTE Risk Level: Moderate Risk Clinical Trial Participant: No - Prophylaxis VTE Prophylaxis Ordered?: Yes Types of VTE Prophylaxis: TEDS Knee High Location of Applied Device: Bilateral Lower Extremeties Pharmacologic Type: Enoxaparin
[2020-08-20 07:43] VITALS: BP 118/64; PULSE 75; RESP 19; TEMP 36.4; O2SAT 87
--- NOTE | 2020-08-20 08:07 | HMH.HP ---
*Admission Date: 08/19/20 *Chief complaint: Shortness of breath *History of present illness: 69-year-old male came to the emergency department yesterday evening with shortness of breath. Patient had suspected COVID-19 beginning last week. His was diagnosed with COVID-19 on August 10. Patient started having symptoms 2 to 3 days later. However at that time patient was resistant to getting tested or evaluated. Patient symptoms primarily included cough that was nonproductive, general malaise, a couple of episodes of diarrhea, chills. He did not check his temperature at home. He uses oxygen at night and over the last 2 days before presenting to the emergency department would use oxygen during the day as well at 2 L/min. However his became concerned. She also became rather frustrated with his resistance to care. She finally forced him to come to the emergency department. On initial evaluation patient had an O2 sat of 66% on room air that responded rather well to application of supplemental oxygen via nasal cannula at 2 to 3 L/min with resting sats in the low to mid 90s. With ambulation or prolonged conversation patient's sats would decrease into the 80s. Patient was admitted for oxygen support and started on Remdesivir and dexamethasone. This morning patient reports he is about the same. He still becomes extremely weak and short of breath with ambulation. [facility] History I have reviewed the patient's past medical history: Yes Medical History: Reports:: Cancer, Chronic Obstructive Pulmonary Disease (COPD), Coronary Artery Disease, Diabetes Mellitus Type 2, Gastroesophageal Reflux Disease(GERD), Hiatal Hernia, Hyperlipidemia, Hypertension, Lung Disease (Prior aspergillosis infection, bronchiectasis of left lung), Myocardial Infarction, Palpitations, Renal Disease Denies:: Diabetes Mellitus Type 1, Internal Pacemaker, MRSA, Seizures *Have you ever received a pneumonia vaccine?: No *Have you received a flu vaccine this season?: No Other Medical History: Reports: Arthritis, Hypothyroidism. Denies: Blood Transfusion Reaction Other Surgeries: Yes: CABG, Cancer Surgery, Cardiac Catheterization, Cardiac Surgery, Hernia Repair, Other (CABG, LHC, 2 stents in kidney, pancreas surgery). No: Pacemaker Amputation: No Fractures: No - *Social History Smoking Status: Former smoker Tobacco Type: cigarettes #Yrs smoked (if former smoker): 20 Alcohol Intake: never Substance Use Type: denies use *Occupational Status:: retired Housing: house Household Members: spouse *Travel in the last 8 weeks: None Family Hx:: Coronary Artery Disease, Heart Attack Review of Systems - Constitutional Reports anorexia, Reports body ache(s), Reports lack of energy, Denies chills - Eyes Denies blurry vision, Denies change in vision - *Cardiovascular Denies chest pain, Denies chest pain at rest, Denies chest pain with activity, Denies shortness of breath with activity - *Respiratory Reports chest congestion, Reports cough, Reports shortness of breath, Reports shortness of breath with activity, Denies change in phlegm color - *Gastrointestinal Denies abdominal pain, Denies belching, Denies bloating, Denies heartburn - *Genitourinary Denies difficulty urinating, Denies blood in urine - *Musculoskeletal Denies abnormal walking, Denies joint pain, Denies decreased muscle mass - Integumentary/Breasts Denies hair loss, Denies bleeding lesions - *Neurologic Denies abnormal walking, Denies abnormal hearing Meds Home Medications Medication Instructions Recorded Confirmed Type aspirin 81 mg tablet,delayed 81 mg PO QDAY 10/10/17 08/19/20 History release simvastatin 40 mg tablet 40 mg PO HS 10/10/17 08/20/20 History albuterol sulfate 90 mcg/actuation 1 inh INHALATION QID PRN #6.7 g 06/01/20 08/19/20 Rx aerosol inhaler glimepiride 4 mg tablet 4 mg PO BID tab 06/25/20 07/10/20 History Gabapentin 300 mg PO DAILY 08/20/20 08/20/20 History Levothyroxine S
[2020-08-20 08:27] LABS: Hemoglobin A1C 10.8 % (4.0-6.0)
[2020-08-20 11:10] LABS: POC Glucose,Bedside 297 (70-110)
[2020-08-20 11:44] VITALS: BP 120/64; PULSE 72; RESP 18; TEMP 36.7; O2SAT 93
[2020-08-20 15:49] VITALS: BP 114/76; PULSE 63; RESP 20; TEMP 36.4; O2SAT 98
[2020-08-20 16:39] LABS: POC Glucose,Bedside 285 (70-110)
--- NOTE | 2020-08-20 17:50 | PC.NURSE ---
PATIENT UP TO RESTROOM AND O2 STATS DROPPED TO 72%. AFTER PATIENT WAS ASSISTED BACK TO BED, O2 STATS WERE 78%. OXYGEN WAS RAISED TO 6L AND THIS RN PHONED RT. WHEN RT ARRIVED ON FLOOR O2 EMORY TO 89%. O2 WAS THEN LOWERED 4L. WHILE PATIENT WAS RESTING IN BED O2 STATS DROPPED TO 77%, RT WAS CALLED. RN ARRIVED ON FLOOR AND O2 STATS REMAINED AT 78% WHILE ON 4L, PATIENT O2 WAS THEN RAISED TO 6L. THIS RN PHONED DR. BARRETT, NO NEW ORDERS. PER MD PATIENT WILL TAKE SEVERAL MINUTES TO RECOVER. PATIENT O2 STATS EMORY TO 90%, O2 TURNED DOWN TO 4L. PATIENT REMAINED STABLE TO 94% ON 4L NC. THIS RN TURNED DOWN O2 TO 3L, PATIENT HAS REMAINED STABLE THUS FAR. NO NEW CONCERNS AT THIS TIME.
[2020-08-20 20:00] VITALS: BP 132/83; PULSE 83; RESP 18; TEMP 36.5; O2SAT 90
[2020-08-21] VITALS (7 sets, daily range): BP systolic 118–153; BP diastolic 69–92; PULSE 59–74; RESP 18–26; TEMP 36.2–37; O2SAT 87–96; BMI 22.6; BMI 22.5
--- NOTE | 2020-08-21 03:20 | PC.NURSE ---
patient has been resting throughout shift. patient remains on 3 l nc, with sats ranging from 90 to 95%. breath sounds remain diminished throughout, no coughing noted this shift. patient voiding clear, yellow urine.
--- NOTE | 2020-08-21 05:01 | PC.NURSE ---
patients o2 sats remain in the 90s without exertion. with ambulating to bathroom on 3 l nc patient sats drop to 72%, resp pattern labored with rate greater 26-30 bpm. patient takes approximately 30-35 min for o2 sats to return back up to 90-91% on 3 l nc
[2020-08-21 05:49] LABS: Basophils % 0.2 % (0.1-2.0); Hemoglobin 14.8 g/dL (14.1-18.0); Lymphocytes % 8.2 % (10-50); Mean Corpuscular HGB Conc 32.3 g/dL (31.8-35.4); Mean Corpuscular Hemoglobin 27.9 pg (27.0-31.2); Mean Corpuscular Volume 86.6 fl (80-94); Mean Platelet Volume 8.5 fl (7.4-10.4); Monocytes # 0.6 K/mm3 (0.1-1.0); Neutrophils # 10.8 K/mm3 (1.8-7.8); Neutrophils % 86.7 % (37.0-80.0); Platelet Count 244 K/mm3 (142-424); Red Blood Count 5.31 M/mm3 (4.60-6.20); Red Cell Distribution Width 14.1 % (11.5-17.5); White Blood Count 12.4 K/mm3 (4.8-10.8)
[2020-08-21 06:00] LABS: MANUAL DIFFERENTIAL MANUAL DIFFERENTIAL (MANUAL DIFF)
[2020-08-21 06:26] LABS: Chloride 105 mmol/L (98-107)
[2020-08-21 06:27] LABS: Potassium 3.7 mmoL/L (3.5-5.1); Sodium 138 mmol/L (136-145)
[2020-08-21 06:30] LABS: Anion Gap 11.7 mEq/L (5-15); Blood Urea Nitrogen 24 mg/dl (9-20); Calcium 8.6 mg/dl (8.4-10.2); Carbon Dioxide 25 mmol/L (22.0-30.0); Creatinine Clearance Estimated 74 mL/min (50-200); Estimated Glomerular Filt Rate 75 ml/min (>60); GFR (African American) 90 ML/MIN (>60); Glucose 273 mg/dl (74-100)
--- NOTE | 2020-08-21 06:52 | PC.NURSE ---
over the last 1.5 hours patient has began desating down to 80% with just turning in the bed, recovery period approximately 5-10 min. with talking and movement patient will drop down to 72. dr. tracy at bedside, assessment complete chart reviewed.
--- NOTE | 2020-08-21 06:59 | XR_ITS ---
PROCEDURE: XR CHEST PORTABLE CLINICAL HISTORY: Covid follow up film, COMPARISON: CT CT CHEST WO CON from 06/16/2020 CR XR CHEST PORTABLE from 06/20/2020 CR XR CHEST AP from 07/08/2020 CR XR CHEST PORTABLE from 08/19/2020 FINDINGS: This is a poor inspiratory effort. Sternal wire sutures are again noted. Prominent bilateral apical pleural scarring is noted more prominent left side than right. Somewhat patchy opacities are seen in the right perihilar region and right lower lung field similar to the most recent exam and likely representing chronic changes. The left lung base is obscured by cardiac silhouette, there does appear to be borderline cardiomegaly. However there is no pulmonary congestion. IMPRESSION: Poor inspiration accentuating the basilar pulmonary findings but I suspect most or all of the findings are chronic in nature. I somewhat doubt an acute superimposed pneumonic infiltrate. Dictated by: Dr. Albert Buenrostro MD 08/21/2020 08:20 Dr. Albert Buenrostro MD in [facility] 08/21/2020 08:20
--- NOTE | 2020-08-21 07:02 | HMH.ACPN2 ---
Internal Medicine - PN: Subj *Date: 08/21/20 *Time: 07:02 Interval history: Patient believes he is feeling a little better this morning. He reports less chest congestion. Patient still has desats into the 80s with prolonged conversation, changes of position in bed, ambulating to and from the bathroom. Exam Vital signs and Labs for Last 24 Hours: Temp Pulse Resp BP Pulse Ox 97.6 F 74 26 H 153/83 H 94 L 08/21/20 04:00 08/21/20 04:00 08/21/20 04:00 08/21/20 04:00 08/21/20 04:00 Laboratory Results - last 24 hr 08/20/20 06:00: Hemoglobin A1c 10.8 H 08/20/20 11:03: POC Glucose 297 H 08/20/20 16:31: POC Glucose 285 H 08/21/20 04:30: WBC 12.4 H D, RBC 5.31, Hgb 14.8, Hct 46.0, MCV 86.6, MCH 27.9, MCHC 32.3, RDW 14.1, Plt Count 244 D, MPV 8.5, Neut % (Auto) 86.7 H, Lymph % (Auto) 8.2 L, [place] % (Auto) 5.0, Eos % (Auto) 0.0 L, Baso % (Auto) 0.2, Neut # (Auto) 10.8 H, Lymph # (Auto) 1.0, [place] # (Auto) 0.6, Eos # (Auto) 0.0, Baso # (Auto) 0.0 08/21/20 04:30: Sodium 138, Potassium 3.7 D, Chloride 105, Carbon Dioxide 25, Anion Gap 11.7, BUN 24 H D, Creatinine 1.00, Estimated Creat Clear 74, Estimated GFR 75, Est GFR ( Amer) 90, Glucose 273 H, Calcium 8.6 I & O for Last 24 hours: Intake & Output 08/18/20 08/19/20 08/20/20 08/21/20 11:59 11:59 11:59 11:59 Intake Total 1593 / 1593 2705 / 2705 Output Total 750 / 750 525 / 525 Balance 843 / 843 2180 / 2180 Weight 154 lb 1.65 oz 161 lb 4.989 oz Microbiology Reports for the Last 24 Hours: Microbiology 08/20/20 09:00 Sputum - Expectorated Sputum Gram Stain - Final - Constitutional no acute distress - *Routine Neck Exam Present: supple. Absent: lymphadenopathy - *Routine Respiratory Exam Present: CTA bilaterally, distant breath sounds - *Routine Cardiovascular Exam Present: RRR - *Routine Abdominal Exam Present: soft - *Routine Extremities Exam Absent: edema Assessment and Plan (1) COVID-19 Status: Acute Category: Medical Code(s): U07.1 - COVID-19 (2) Respiratory failure Status: Acute Qualifiers: Chronicity: acute on chronic Respiratory failure complication: hypoxia Qualified Code(s): J96.21 - Acute and chronic respiratory failure with hypoxia Category: Medical Code(s): J96.90 - Respiratory failure, unspecified, unspecified whether with hypoxia or hypercapnia (3) Coronary artery disease Status: Acute Category: Medical Code(s): I25.10 - Atherosclerotic heart disease of [place] coronary artery without angina pectoris (4) Bronchiectasis Status: Acute Category: Medical Code(s): J47.9 - Bronchiectasis, uncomplicated (5) Interstitial lung disease Status: Acute Category: Medical Code(s): J84.9 - Interstitial pulmonary disease, unspecified (6) Diabetes mellitus Status: Acute Qualifiers: Diabetes mellitus type: type 2 Diabetes mellitus senior care insulin use: unspecified rigging helper insulin use status Diabetes mellitus complication status: with other specified complication Qualified Code(s): E11.69 - Type 2 diabetes mellitus with other specified complication Category: Medical Code(s): E11.9 - Type 2 diabetes mellitus without complications (7) Essential hypertension Status: Acute Category: Medical Code(s): I10 - Essential (primary) hypertension (8) Ex-smoker Status: Acute Category: Social Hx Code(s): Z87.891 - Personal history of nicotine dependence (9) History of coronary artery bypass graft Status: Acute Category: Surgical Code(s): Z95.1 - Presence of aortocoronary bypass graft (10) Hypothyroidism Status: Acute Category: Medical Code(s): E03.9 - Hypothyroidism, unspecified (11) Mixed hyperlipidemia Status: Acute Category: Medical Code(s): E78.2 - Mixed hyperlipidemia - Assessment and plan all Dx Assessment and Plan for all problems:: 1. Repeat patient's chest x-ray today 2. Due to sputum culture showing some gram-posi
[2020-08-21 07:57] LABS: Lymphocytes % 10 % (10-50); Monocytes % 5 % (2-9); Neutrophils % 85 % (42-76); Platelet Estimate Normal; RBC Morphology Normal; Total Cells Counted 100
[2020-08-21 15:12] LABS: POC Glucose,Bedside 354 (70-110)
[2020-08-21 15:12] LABS: POC Glucose,Bedside 325 (70-110)
[2020-08-21 15:12] LABS: POC Glucose,Bedside 283 (70-110)
[2020-08-21 16:36] LABS: POC Glucose,Bedside 333 (70-110)
--- NOTE | 2020-08-21 18:31 | PC.NURSE ---
Patient has been alert and oriented this shift, has required frequent direction to leave oxygen in place, when patient is refusing to wear his oxygen his oxygen saturations quickly decline, into the low 70's, during exertion with 3LNC in place patients oxygen saturation declines to 82-85%, he is slow to recover, at rest patients saturation are 92-96% on 3LNC, perrla, electronic publisher equal, lung sounds diminished t/o, abd soft and nontender, active bowel sounds in all quads, peripheral pulses intact, voids per BR without difficutly, denies any pain this shift, will continue to monitor.
[2020-08-21 21:25] LABS: POC Glucose,Bedside 305 (70-110)
[2020-08-22] VITALS (7 sets, daily range): BP systolic 122–144; BP diastolic 69–91; PULSE 59–67; RESP 18–22; TEMP 36.2–36.6; O2SAT 89–96; BMI 22.5
--- NOTE | 2020-08-22 06:04 | PC.NURSE ---
Pt is a&ox4. Pt has desatted multiple times this shift and has taken approximately 15-30 minutes to recover each time. Pt bumped up to 4 L this shift and is currently at 88%. The lowest this pt has gotten on 4 L this shift was 71%. Pt has had a dry intermittent cough at times this shift. PRN inhaler used x1 this shift for SOA. Active bowel sounds in all 4 quads. No BM reported this shift. Pt's urine is clear and dark yellow. No other acute changes or complaints at this time. Will continue to monitor.
[2020-08-22 06:23] LABS: POC Glucose,Bedside 151 (70-110)
[2020-08-22 06:24] LABS: Basophils % 0.2 % (0.1-2.0); Hematocrit 42.8 % (42.0-52.0); Hemoglobin 14.3 g/dL (14.1-18.0); Lymphocytes # 0.7 K/mm3 (0.7-4.5); Lymphocytes % 6.8 % (10-50); Mean Corpuscular HGB Conc 33.5 g/dL (31.8-35.4); Mean Corpuscular Hemoglobin 27.9 pg (27.0-31.2); Mean Corpuscular Volume 83.4 fl (80-94); Mean Platelet Volume 8.2 fl (7.4-10.4); Monocytes # 0.5 K/mm3 (0.1-1.0); Monocytes % 5.2 % (1.7-9.3); Neutrophils # 8.9 K/mm3 (1.8-7.8); Neutrophils % 87.8 % (37.0-80.0); Platelet Count 221 K/mm3 (142-424); Red Blood Count 5.14 M/mm3 (4.60-6.20); Red Cell Distribution Width 14.1 % (11.5-17.5); White Blood Count 10.2 K/mm3 (4.8-10.8)
[2020-08-22 06:34] LABS: MANUAL DIFFERENTIAL MANUAL DIFFERENTIAL (MANUAL DIFF)
[2020-08-22 06:35] LABS: Chloride 106 mmol/L (98-107); Potassium 3.2 mmoL/L (3.5-5.1); Sodium 140 mmol/L (136-145)
[2020-08-22 06:37] LABS: Alanine Aminotransferase 11 U/L (12-78); Bilirubin,Unconjugated 0.3 mg/dL (0.0-1.1); Blood Urea Nitrogen 23 mg/dl (9-20); Creatinine Clearance Estimated 74 mL/min (50-200); Estimated Glomerular Filt Rate 84 ml/min (>60); GFR (African American) 102 ML/MIN (>60)
[2020-08-22 06:38] LABS: Alkaline Phosphatase 97 U/L (38-126); Anion Gap 8.2 mEq/L (5-15); Aspartate Amino Transferase 26 U/L (17-59); Bilirubin,Direct 0.1 mg/dl (0.0-0.4); Bilirubin,Indirect 0.3 mg/dL (0.0-0.9); Bilirubin,Total 0.4 mg/dl (0.2-1.3); Calcium 8.6 mg/dl (8.4-10.2); Carbon Dioxide 29 mmol/L (22.0-30.0); Glucose 168 mg/dl (74-100); Total Protein,Serum 6.6 g/dl (6.3-8.2)
[2020-08-22 06:44] LABS: C-Reactive Protein 13.4 mg/L (0-4)
--- NOTE | 2020-08-22 08:21 | HMH.ACPN2 ---
Internal Medicine - PN: Subj *Date: 08/22/20 *Time: 08:21 Interval history: Patient continues to have desaturations with eating, talking, movement into the low 80s that will take 20 to 30 minutes before patient recovers and sats returned to the 90s. Overnight oxygen was increased to 4 L/min via the nasal cannula. This morning the patient is just finished eating breakfast and admits he still feels like he is recovering. He tried prone positioning yesterday evening but this was uncomfortable. He did sit in the chair for approximately 1 hour. Exam Vital signs and Labs for Last 24 Hours: Temp Pulse Resp BP Pulse Ox 97.2 F L 67 22 122/75 89 L 08/22/20 07:53 08/22/20 07:53 08/22/20 07:53 08/22/20 07:53 08/22/20 07:53 Laboratory Results - last 24 hr 08/20/20 21:06: POC Glucose 325 H* 08/21/20 06:22: POC Glucose 283 H 08/21/20 11:25: POC Glucose 354 H* 08/21/20 16:22: POC Glucose 333 H* 08/21/20 21:11: POC Glucose 305 H* 08/22/20 06:15: WBC 10.2, RBC 5.14, Hgb 14.3, Hct 42.8, MCV 83.4, MCH 27.9, MCHC 33.5, RDW 14.1, Plt Count 221, MPV 8.2, Neut % (Auto) 87.8 H, Lymph % (Auto) 6.8 L, [place] % (Auto) 5.2, Eos % (Auto) 0.0 L, Baso % (Auto) 0.2, Neut # (Auto) 8.9 H, Lymph # (Auto) 0.7, [place] # (Auto) 0.5, Eos # (Auto) 0.0, Baso # (Auto) 0.0 08/22/20 06:15: Sodium 140, Potassium 3.2 L, Chloride 106, Carbon Dioxide 29, Anion Gap 8.2, BUN 23 H, Creatinine 0.90, Estimated Creat Clear 74, Estimated GFR 84, Est GFR ( Amer) 102, Glucose 168 H, Calcium 8.6, Total Bilirubin 0.4, Direct Bilirubin 0.1, Conjugated Bilirubin 0.0, Indirect Bilirubin 0.3, Unconjugated Bilirubin 0.3, AST 26, ALT 11 L, Alkaline Phosphatase 97, C-Reactive Protein 13.4 H D, Total Protein 6.6, Albumin 3.0 L 08/22/20 06:16: POC Glucose 151 H I & O for Last 24 hours: Intake & Output 08/19/20 08/20/20 08/21/20 08/22/20 11:59 11:59 11:59 11:59 Intake Total 1593 / 1593 2945 / 2945 840 / 840 Output Total 750 / 750 525 / 525 1100 / 1100 Balance 843 / 843 2420 / 2420 -260 / -260 Weight 154 lb 1.65 oz 160 lb 14.999 oz 161 lb 3 oz Microbiology Reports for the Last 24 Hours: Microbiology 08/20/20 09:00 Sputum - Expectorated Sputum Gram Stain - Final 08/20/20 09:00 Sputum - Expectorated Sputum Sputum Culture - Final Normal Respiratory Lucie 08/19/20 14:38 Blood Blood Culture - Preliminary NO GROWTH AFTER 48 HOURS 08/19/20 14:38 Blood Blood Culture - Preliminary NO GROWTH AFTER 48 HOURS - Constitutional mild distress (For stational dyspnea) - *Routine Respiratory Exam Present: decreased breath sounds. Absent: rales, rhonchi, wheezes, crackles - *Routine Cardiovascular Exam Present: RRR - *Routine Abdominal Exam Present: soft, normoactive bowel sounds. Absent: tenderness Assessment and Plan (1) COVID-19 Status: Acute Category: Medical Code(s): U07.1 - COVID-19 (2) Respiratory failure Status: Acute Qualifiers: Chronicity: acute on chronic Respiratory failure complication: hypoxia Qualified Code(s): J96.21 - Acute and chronic respiratory failure with hypoxia Category: Medical Code(s): J96.90 - Respiratory failure, unspecified, unspecified whether with hypoxia or hypercapnia (3) Coronary artery disease Status: Acute Category: Medical Code(s): I25.10 - Atherosclerotic heart disease of [place] coronary artery without angina pectoris (4) Bronchiectasis Status: Acute Category: Medical Code(s): J47.9 - Bronchiectasis, uncomplicated (5) Interstitial lung disease Status: Acute Category: Medical Code(s): J84.9 - Interstitial pulmonary disease, unspecified (6) Diabetes mellitus Status: Acute Qualifiers: Diabetes mellitus type: type 2 Diabetes mellitus prison insulin use: unspecified termite exterminator insulin use status Diabetes mellitus complication status: with other specified complication Qu
[2020-08-22 09:12] LABS: Lymphocytes % 9 % (10-50); Monocytes % 9 % (2-9); Neutrophils % 82 % (42-76); Total Cells Counted 100
[2020-08-22 09:13] LABS: Platelet Estimate Normal; RBC Morphology Normal
[2020-08-22 10:23] LABS: POC Glucose,Bedside 304 (70-110)
--- NOTE | 2020-08-22 16:48 | PC.NURSE ---
Pt remains on 4 L O2 per nasal cannula. Lungs diminished upon auscultation. Occasional dry cough noted. Pt does become SOA when ambulating and requires increased oxygen demand, O2 increased to 6 L w/ doctors approval while ambulating and up to bathroom. Pt requires assistance x 1 when ambulating d/t pt being SOA and unsteady on his feet. Incentive spirometer given, along w/ education, to pt this shift. Pt was able to demonstrate proper use, but will continue to need reinforcement and encouragement. IS @ best = 1000cc. Pt is neurologically intact. Pulses present and equal. HR regular. No edema present. Skin intact, w/ noted scattered scars from prev procedues. Abdomen soft, non-tender w/ active BS. Pt did have a small BM this shift. Is voiding clear yellow urine w/o difficulty. Has ate about 50% of meals this shift. No c/o nausea. Pt up to chair for meals this shift w/ encouragement of staff. Pt is currently lying in prone position, tolerating well, sat currently 96%. Pt has been in contact w/ his throughout shift. Call talat w/in reach, pt rings out appropriately. No needs voiced at this time.
[2020-08-23] VITALS (7 sets, daily range): BP systolic 110–145; BP diastolic 63–83; PULSE 52–81; RESP 18–24; TEMP 36.3–36.6; O2SAT 83–99; BMI 22.5
--- NOTE | 2020-08-23 03:40 | PC.NURSE ---
Pt is A&O x4. Lung sounds diminished t/o. Pt is currently on 4 L NC. Pt has had episodes of desaturation t/o this shift but recovers within 30 min. O2 increased when pt gets up to side of the bed to urinate and then is brought back down when pt lies down. IS encouraged hourly during awake hours, but only used about 50% of the time. Humidification added to pt's o2 this shift. Active bowel sounds in all 4 quads. No BM reported this shift. Pt continues to urinate clear, dark yellow urine. No other actue changes or complaints at this time. Will continue to monitor.
[2020-08-23 05:13] LABS: Basophils % 0.2 % (0.1-2.0); Hemoglobin 14.3 g/dL (14.1-18.0); Lymphocytes # 0.8 K/mm3 (0.7-4.5); Lymphocytes % 7.7 % (10-50); Mean Corpuscular HGB Conc 32.5 g/dL (31.8-35.4); Mean Corpuscular Hemoglobin 27.6 pg (27.0-31.2); Mean Corpuscular Volume 84.9 fl (80-94); Mean Platelet Volume 8.1 fl (7.4-10.4); Monocytes # 0.6 K/mm3 (0.1-1.0); Monocytes % 5.5 % (1.7-9.3); Neutrophils # 9.2 K/mm3 (1.8-7.8); Neutrophils % 86.7 % (37.0-80.0); Platelet Count 208 K/mm3 (142-424); Red Blood Count 5.18 M/mm3 (4.60-6.20); Red Cell Distribution Width 13.9 % (11.5-17.5); White Blood Count 10.7 K/mm3 (4.8-10.8)
[2020-08-23 05:24] LABS: Chloride 108 mmol/L (98-107); Potassium 4.1 mmoL/L (3.5-5.1); Sodium 141 mmol/L (136-145)
[2020-08-23 05:27] LABS: Alanine Aminotransferase 9 U/L (12-78); Albumin Level 2.9 g/dl (3.5-5.0); Alkaline Phosphatase 95 U/L (38-126); Anion Gap 8.1 mEq/L (5-15); Aspartate Amino Transferase 33 U/L (17-59); Bilirubin,Direct 0.1 mg/dl (0.0-0.4); Bilirubin,Indirect 0.3 mg/dL (0.0-0.9); Bilirubin,Total 0.4 mg/dl (0.2-1.3); Bilirubin,Unconjugated 0.3 mg/dL (0.0-1.1); Blood Urea Nitrogen 27 mg/dl (9-20); Calcium 8.1 mg/dl (8.4-10.2); Carbon Dioxide 29 mmol/L (22.0-30.0); Creatinine Clearance Estimated 67 mL/min (50-200); Estimated Glomerular Filt Rate 67 ml/min (>60); GFR (African American) 81 ML/MIN (>60); Glucose 195 mg/dl (74-100); Total Protein,Serum 6.3 g/dl (6.3-8.2)
[2020-08-23 05:43] LABS: MANUAL DIFFERENTIAL MANUAL DIFFERENTIAL (MANUAL DIFF)
[2020-08-23 05:47] LABS: Lymphocytes % 6 % (10-50); Monocytes % 1 % (2-9); Neutrophils % 91 % (42-76); Platelet Estimate Normal; RBC Morphology Normal; Total Cells Counted 100
--- NOTE | 2020-08-23 08:04 | HMH.ACPN2 ---
Internal Medicine - PN: Subj *Date: 08/23/20 *Time: 08:04 Interval history: Patient has no new complaints this morning. Patient has had a prolonged desaturation this morning and it is now been approximately 60 minutes the patient is spent with O2 sats in the low to mid 80s. This is previously been triggered by mild movement, repositioning in bed, conversation. Patient's pulse rate remains within normal range. He denies any worsening shortness of breath. He is using incentive spirometer occasionally Exam Vital signs and Labs for Last 24 Hours: Temp Pulse Resp BP Pulse Ox 97.8 F 81 24 110/63 83 L 08/23/20 07:47 08/23/20 07:47 08/23/20 07:47 08/23/20 07:47 08/23/20 07:47 Laboratory Results - last 24 hr 08/22/20 06:15: Total Counted 100, Neutrophils % (Manual) 82 H, Lymphocytes % (Manual) 9 L, Monocytes % (Manual) 9, Platelet Estimate Normal, RBC Morphology Normal 08/22/20 10:16: POC Glucose 304 H* 08/23/20 04:30: WBC 10.7, RBC 5.18, Hgb 14.3, Hct 44.0, MCV 84.9, MCH 27.6, MCHC 32.5, RDW 13.9, Plt Count 208, MPV 8.1, Neut % (Auto) 86.7 H, Lymph % (Auto) 7.7 L, [place] % (Auto) 5.5, Eos % (Auto) 0.0 L, Baso % (Auto) 0.2, Neut # (Auto) 9.2 H, Lymph # (Auto) 0.8, [place] # (Auto) 0.6, Eos # (Auto) 0.0, Baso # (Auto) 0.0, Total Counted 100, Neutrophils % (Manual) 91 H, Band Neutrophils % 2.0, Lymphocytes % (Manual) 6 L, Monocytes % (Manual) 1 L, Platelet Estimate Normal, RBC Morphology Normal 08/23/20 04:30: Sodium 141, Potassium 4.1 D, Chloride 108 H, Carbon Dioxide 29, Anion Gap 8.1, BUN 27 H, Creatinine 1.10 D, Estimated Creat Clear 67, Estimated GFR 67, Est GFR ( Amer) 81 D, Glucose 195 H, Calcium 8.1 L, Total Bilirubin 0.4, Direct Bilirubin 0.1, Conjugated Bilirubin 0.0, Indirect Bilirubin 0.3, Unconjugated Bilirubin 0.3, AST 33 D, ALT 9 L, Alkaline Phosphatase 95, Total Protein 6.3, Albumin 2.9 L I & O for Last 24 hours: Intake & Output 08/20/20 08/21/20 08/22/20 08/23/20 11:59 11:59 11:59 11:59 Intake Total 1593 / 1593 2945 / 2945 840 / 840 1320 / 1320 Output Total 750 / 750 525 / 525 1100 / 1100 1200 / 1200 Balance 843 / 843 2420 / 2420 -260 / -260 120 / 120 Weight 154 lb 1.65 oz 160 lb 14.999 oz 161 lb 3 oz 161 lb 3 oz Microbiology Reports for the Last 24 Hours: Microbiology 08/20/20 09:00 Sputum - Expectorated Sputum Gram Stain - Final 08/20/20 09:00 Sputum - Expectorated Sputum Sputum Culture - Final Normal Respiratory Lucie - Constitutional Comments: Patient has mild increased work of breathing - *Routine HEENT Exam Head: Present: normocephalic Eye: Present: EOMI, PERRL ENT: Present: mucous membranes moist - *Routine Neck Exam Present: supple. Absent: lymphadenopathy - *Routine Respiratory Exam Comments: Improved aeration with dry crackles left posterior base and left lateral base - *Routine Cardiovascular Exam Present: RRR Assessment and Plan (1) COVID-19 Status: Acute Category: Medical Code(s): U07.1 - COVID-19 (2) Respiratory failure Status: Acute Qualifiers: Chronicity: acute on chronic Respiratory failure complication: hypoxia Qualified Code(s): J96.21 - Acute and chronic respiratory failure with hypoxia Category: Medical Code(s): J96.90 - Respiratory failure, unspecified, unspecified whether with hypoxia or hypercapnia (3) Coronary artery disease Status: Acute Category: Medical Code(s): I25.10 - Atherosclerotic heart disease of [place] coronary artery without angina pectoris (4) Bronchiectasis Status: Acute Category: Medical Code(s): J47.9 - Bronchiectasis, uncomplicated (5) Interstitial lung disease Status: Acute Category: Medical Code(s): J84.9 - Interstitial pulmonary disease, unspecified (6) Diabetes mellitus Status: Acute Qualifiers: Diabetes mellitus type: type 2 Diabetes mellitus residential insulin use: unspecified residential insulin use status Diabetes mellitu
--- NOTE | 2020-08-23 08:15 | PC.NURSE ---
Pt's oxygen has been in the mid 80s since beginning of shift. Dr Carrera aware and requested we place pt on a nonrebreather. Pt placed on nonrebreather and has oxygen sat of 95% currently.
--- NOTE | 2020-08-23 11:35 | PC.NURSE ---
Pt got up to the chair. Will encourage pt to be up in the chair as much as he can tolerate.
--- NOTE | 2020-08-23 11:50 | PC.NURSE ---
Placed pt on 6L and will continue to monitor the pt and see how he tolerates it.
--- NOTE | 2020-08-23 18:10 | PC.NURSE ---
A&OX4. PT STARTED OUT AT 6L THIS MORNING BUT HAD TO BE PLACED ON NONREBREATHER SHORTLY AFTER DUE TO LOW O2. PT TOLERATED IT WELL. PT WAS ABLE TO BE PLACED ON 6L AFTER LUNCH AND IS CURRENTLY ON 4L NC RIGHT NOW AT 92% TOLERATING WELL. RESPIRATIONS HAVE BEEN REGULAR AND UNLABORED. LUNG SOUNDS DIMINISHED THROUGHOUT. OCCASIONAL PRODUCTIVE COUGH NOTED. HAND MANDOLIN REPAIRER EQUAL. +2 PULSES NOTED THROUGHOUT. NO EDEMA NOTED. ACTIVE BOWEL SOUNDS HEARD IN ALL 4 QUADRANTS. SOFT AND NONTENDER ABDOMEN. NO BM THUS FAR. PT VOIDS PER URINAL. CLEAR YELLOW URINE NOTED. NO PAIN OR NAUSEA REPORTED THUS FAR. PT HAS REMAINED AFEBRILE. PT RECEIVED REMDESIVIR AND ROCEPHIN TODAY AND TOLERATED WELL. PT SAT UP TO THE CHAIR FOR ABOUT 3 HOURS TODAY AND TOLERATED WELL. PT IS CURRENTLY SITTING IN BED W CALL LIGHT WITHIN REACH. BED IN LOWEST POSITION. VSS. WILL CONTINUE TO MONITOR.
[2020-08-24] VITALS (12 sets, daily range): BP systolic 95–155; BP diastolic 49–89; PULSE 54–71; RESP 18–22; TEMP 36.2–37; O2SAT 84–98; BMI 22.4
--- NOTE | 2020-08-24 04:43 | PC.NURSE ---
Pt is A&Ox4. At the beginning of shift pt was tolerating 4L NC with 02 sats between 92-95%. After nursing staff performed first round this shift, pt was experiencing desaturation in the low to mid 80's and was not recuperating, so this nurse did increase pt's o2 to 6L and pt has been on that thus far this shift, with o2 sat of 90-92%. Pt continues to be encouraged to use IS. IS placed at bedside. Pt accidentally pulled LAC PIV out while sleeping this shift. New 20 g PIV in RAC was inserted and is patent and SL. Pt continues to urinate clear, yellow urine per urinal. Active bowel sounds in all 4 quads. No BM noted this shift. No other acute changes or complaints at this time. Will continue to monitor.
--- NOTE | 2020-08-24 06:46 | HMH.ACPN2 ---
Internal Medicine - PN: Subj *Date: 08/24/20 *Time: 06:46 Interval history: Patient reports his day was pretty good yesterday but admits at times such as sitting up in the chair he would become dyspneic. Patient was on a nonrebreather from around 8 AM to noon. This easily kept his sats in the mid to high 90s. At noon after eating lunch patient was transitioned back to nasal cannula anywhere from 4 to 6 L/min flow rate. This maintained patient's O2 sats from 92 to 94% for the remainder of the day and throughout the night. Currently this morning after light movement patient has desatted into the 80s again. He denies feeling significantly short of breath at this moment. He continues to cough with very little sputum production. He uses the incentive spirometer inconsistently. Exam Vital signs and Labs for Last 24 Hours: Temp Pulse Resp BP Pulse Ox 97.2 F L 62 19 141/75 H 91 L 08/24/20 04:00 08/24/20 04:00 08/24/20 04:00 08/24/20 04:00 08/24/20 04:00 I & O for Last 24 hours: Intake & Output 08/21/20 08/22/20 08/23/20 08/24/20 11:59 11:59 11:59 11:59 Intake Total 2945 / 2945 840 / 840 1547 / 1547 780 / 780 Output Total 525 / 525 1100 / 1100 1500 / 1500 850 / 850 Balance 2420 / 2420 -260 / -260 47 / 47 -70 / -70 Weight 160 lb 14.999 oz 161 lb 3 oz 161 lb 3 oz 160 lb 6 oz Narrative: Patient has mild increased respiratory rate. He is alert and oriented. Lungs have diminished breath sounds with dry rales at the left base. Heart has a regular rate and rhythm. Abdomen is soft and thin. Lower extremities have no edema. Assessment and Plan (1) COVID-19 Status: Acute Category: Medical Code(s): U07.1 - COVID-19 (2) Respiratory failure Status: Acute Qualifiers: Chronicity: acute on chronic Respiratory failure complication: hypoxia Qualified Code(s): J96.21 - Acute and chronic respiratory failure with hypoxia Category: Medical Code(s): J96.90 - Respiratory failure, unspecified, unspecified whether with hypoxia or hypercapnia (3) Coronary artery disease Status: Acute Category: Medical Code(s): I25.10 - Atherosclerotic heart disease of [place] coronary artery without angina pectoris (4) Bronchiectasis Status: Acute Category: Medical Code(s): J47.9 - Bronchiectasis, uncomplicated (5) Interstitial lung disease Status: Acute Category: Medical Code(s): J84.9 - Interstitial pulmonary disease, unspecified (6) Diabetes mellitus Status: Acute Qualifiers: Diabetes mellitus type: type 2 Diabetes mellitus detention insulin use: unspecified termite control technician insulin use status Diabetes mellitus complication status: with other specified complication Qualified Code(s): E11.69 - Type 2 diabetes mellitus with other specified complication Category: Medical Code(s): E11.9 - Type 2 diabetes mellitus without complications (7) Essential hypertension Status: Acute Category: Medical Code(s): I10 - Essential (primary) hypertension (8) Ex-smoker Status: Acute Category: Social Hx Code(s): Z87.891 - Personal history of nicotine dependence (9) History of coronary artery bypass graft Status: Acute Category: Surgical Code(s): Z95.1 - Presence of aortocoronary bypass graft (10) Hypothyroidism Status: Acute Category: Medical Code(s): E03.9 - Hypothyroidism, unspecified (11) Mixed hyperlipidemia Status: Acute Category: Medical Code(s): E78.2 - Mixed hyperlipidemia (12) Hypokalemia Status: Resolved Category: Medical Code(s): E87.6 - Hypokalemia (13) Chronic restrictive lung disease Status: Acute Category: Medical Code(s): J98.4 - Other disorders of lung - Assessment and plan all Dx Assessment and Plan for all problems:: 1. Pulmonology consultation today in this patient with multiple pulmonary comorbidities 2. Continue to increase flow of supplemental oxygen as needed to keep sats around 94% or higher. 3. Continue remd
[2020-08-24 07:51] LABS: Chloride 103 mmol/L (98-107); Potassium 3.8 mmoL/L (3.5-5.1); Sodium 139 mmol/L (136-145)
[2020-08-24 07:54] LABS: Anion Gap 9.8 mEq/L (5-15); Blood Urea Nitrogen 23 mg/dl (9-20); Carbon Dioxide 30 mmol/L (22.0-30.0); Creatinine Clearance Estimated 74 mL/min (50-200); Estimated Glomerular Filt Rate 84 ml/min (>60); GFR (African American) 102 ML/MIN (>60)
[2020-08-24 07:55] LABS: Calcium 8.4 mg/dl (8.4-10.2); Glucose 128 mg/dl (74-100)
[2020-08-24 07:59] LABS: C-Reactive Protein 25.5 mg/L (0-4)
[2020-08-24 08:08] LABS: Basophils % 0.3 % (0.1-2.0); Eosinophils % 0.4 % (0.1-12.0); Hematocrit 43.6 % (42.0-52.0); Hemoglobin 14.7 g/dL (14.1-18.0); Lymphocytes # 1.2 K/mm3 (0.7-4.5); Lymphocytes % 10.8 % (10-50); Mean Corpuscular HGB Conc 33.8 g/dL (31.8-35.4); Mean Corpuscular Hemoglobin 28.2 pg (27.0-31.2); Mean Corpuscular Volume 83.3 fl (80-94); Mean Platelet Volume 8.3 fl (7.4-10.4); Monocytes # 0.7 K/mm3 (0.1-1.0); Monocytes % 5.7 % (1.7-9.3); Neutrophils # 9.5 K/mm3 (1.8-7.8); Neutrophils % 82.9 % (37.0-80.0); Platelet Count 223 K/mm3 (142-424); Red Blood Count 5.23 M/mm3 (4.60-6.20); Red Cell Distribution Width 14.1 % (11.5-17.5); White Blood Count 11.4 K/mm3 (4.8-10.8)
--- NOTE | 2020-08-24 08:17 | PC.NURSE ---
Attempted to contact Dr. Norman office @ this time. Office is closed and will resume business hours tomorrow, August 25. Will pass on to shift manager staff to contact tomorrow for consult.
--- NOTE | 2020-08-24 12:53 | XR_ITS ---
PROCEDURE: XR CHEST PORTABLE CLINICAL HISTORY: covid, chronic lung disease, hypoxia, COMPARISON: CT CT CHEST WO CON from 06/16/2020 CR XR CHEST AP from 07/08/2020 CR XR CHEST PORTABLE from 08/19/2020 CR XR CHEST PORTABLE from 08/21/2020 FINDINGS: There has been a prior CABG. Increased density once again noted involving the left lung with chronic changes on the right. Overall, the density of the left lung is somewhat more prominent on today's exam but could be related to the technique. Pleural thickening once again noted in the lung apices. IMPRESSION: Chronic changes with some increased density of the left lung compared to the previous exam which could be related to worsening pneumonia. Upright PA and lateral chest may confirm. Dictated by: Job Garay MD 08/24/2020 14:17 Job Garay MD in [facility] 08/24/2020 14:17
--- NOTE | 2020-08-24 14:30 | DIET.NUTRFU ---
PO intakes 50%. BG avg 190. Diabetic protein shake BID added to diet order, will monitor and adjust as indicated.
[2020-08-24 15:50] LABS: POC Glucose,Bedside 338 (70-110)
[2020-08-24 15:50] LABS: POC Glucose,Bedside 257 (70-110)
[2020-08-24 15:50] LABS: POC Glucose,Bedside 188 (70-110)
[2020-08-24 15:50] LABS: POC Glucose,Bedside 290 (70-110)
[2020-08-24 15:50] LABS: POC Glucose,Bedside 271 (70-110)
[2020-08-24 15:50] LABS: POC Glucose,Bedside 337 (70-110)
[2020-08-24 15:50] LABS: POC Glucose,Bedside 325 (70-110)
--- NOTE | 2020-08-24 16:02 | CT_ITS ---
PROCEDURE: CT CHEST WO CON CLINICAL INDICATION: covid ,abdnormal cxr, shortness of air, worsening pneumonia COMPARISON: CT CT CHEST WO CON from 06/16/2020 TECHNIQUE: Axial images obtained with sagittal and coronal reformats. All CT scans at the facility use one or more dose reduction, viz: automated exposure control, ma/kV adjustment per patient size (including targeted exams where dose is matched to indication, i.e. head), or iterative reconstruction technique. FINDINGS: Chronic biapical pleural thickening with cavitation in the right apex not significantly changed. Bilateral upper lobe volume loss with bronchiectasis. There is a slightly enlarging cavity adjacent to the right apical cavity suggesting superimposed infection. Prior CABG with extensive coronary artery calcification. Apparent prior tracheostomy. There is tortuosity/ectasia of the thoracic aorta. There is diffuse ground-glass consolidation in the lower lobes bilaterally. No pleural effusion. No cavitation in the lower lobes. Incidental note made of gynecomastia. Upper abdominal images show pneumobilia status post prior cholecystectomy. The gastric wall appears thickened but is nondistended. There is mild thoracic curvature convex right. IMPRESSION: Interval development of diffuse ground-glass opacification of both lower lobes in the lung bases. Covid19 pneumonia is considered Chronic changes with biapical pleural thickening and bronchiectasis with cavitation in the right apex which is slightly extended inferiorly. Dictated by: Job Garay MD 08/25/2020 05:41 Job Garay MD in [place] 08/25/2020 05:41
[2020-08-24 16:38] LABS: POC Glucose,Bedside 340 (70-110)
--- NOTE | 2020-08-24 17:57 | PC.NURSE ---
Pt has done well this shift, O2 decreased to 5 L O2 per nasal cannula this afternoon. Lungs diminished upon auscultation on reassessment. Continues to have productive cough. Resp rate 20-28/min. Pt will desat w/ activity to low 80's, recovering w/in 10-15 minutes. IS encourage throughout shift.IS @ best =1000. Metoprolol was held this AM d/t low BP and HR, although asymptomatic. Abdomen soft, non-tender w/ active BS. Pt did have one large BM this shift. Voiding clear honorio urine w/o difficulty. Skin intact. No edema noted. Pt up to chair for 4 hours today, tolerating well. Was helped w/ bath at bedside this shift and received total linen change. When ambulating to bathroom pt requires assistance x1 d/t unsteady gait/weakness. Has been in contact w/ throughout shift by personal cellphone. No needs voiced. Call [place] w/in reach.
--- NOTE | 2020-08-24 18:49 | PC.NURSE ---
O2 decreased to 4 L per nasal cannula. SPO2 was 98% on 5 L @ rest.
[2020-08-24 20:51] LABS: POC Glucose,Bedside 246 (70-110)
--- NOTE | 2020-08-24 23:00 | PC.NURSE ---
Pt requested to have breathing tx. MD Carrera notified of pt request. O2 sats 90% on 5L NC. Duonebs QID ordered. RT notified.
[2020-08-25] VITALS (12 sets, daily range): BP systolic 97–133; BP diastolic 53–75; PULSE 58–83; RESP 17–20; TEMP 36–36.9; O2SAT 87–97; BMI 24.2
--- NOTE | 2020-08-25 03:50 | PC.NURSE ---
Pt A&O x4. Has slept at intervals this shift. He is currently on 5L O2 NC. O2 sats in low 90s. Pt becomes soa and desats with any exertion, even while using incentive spirometer. Pt will desat usually to low to mid 80s, but as low as 70s observed. Recovery period is slow. Usually takes pt 5 to 10 minutes for full recovery. Lungs are diminished t/o. BP is currently stable. Pt has remained afebrile. He has been bradycardic at times. BM yesterday. Pt uses urinal. Urine output total thus far is 850 ml. Medications administered per nov. Call light within reach. Will continue tomonitor.
[2020-08-25 05:35] LABS: POC Glucose,Bedside 121 (70-110)
[2020-08-25 05:45] LABS: Basophils % 0.4 % (0.1-2.0); Eosinophils # 0.1 K/mm3 (0.0-0.4); Eosinophils % 0.6 % (0.1-12.0); Hemoglobin 13.4 g/dL (14.1-18.0); Lymphocytes # 0.7 K/mm3 (0.7-4.5); Lymphocytes % 7.1 % (10-50); Mean Corpuscular HGB Conc 33.6 g/dL (31.8-35.4); Mean Corpuscular Volume 83.2 fl (80-94); Mean Platelet Volume 8.4 fl (7.4-10.4); Monocytes # 0.6 K/mm3 (0.1-1.0); Monocytes % 6.1 % (1.7-9.3); Neutrophils # 8.1 K/mm3 (1.8-7.8); Neutrophils % 85.7 % (37.0-80.0); Platelet Count 187 K/mm3 (142-424); Red Cell Distribution Width 14.4 % (11.5-17.5); White Blood Count 9.4 K/mm3 (4.8-10.8)
[2020-08-25 05:49] LABS: Chloride 103 mmol/L (98-107)
[2020-08-25 05:50] LABS: Potassium 4.6 mmoL/L (3.5-5.1); Sodium 137 mmol/L (136-145)
[2020-08-25 05:53] LABS: Anion Gap 9.6 mEq/L (5-15); Blood Urea Nitrogen 26 mg/dl (9-20); Calcium 8.3 mg/dl (8.4-10.2); Carbon Dioxide 29 mmol/L (22.0-30.0); Creatinine Clearance Estimated 80 mL/min (50-200); Estimated Glomerular Filt Rate 84 ml/min (>60); GFR (African American) 102 ML/MIN (>60); Glucose 123 mg/dl (74-100)
[2020-08-25 05:58] LABS: MANUAL DIFFERENTIAL MANUAL DIFFERENTIAL (MANUAL DIFF)
[2020-08-25 06:29] LABS: Eosinophils % 1 % (0-3); Lymphocytes % 11 % (10-50); Monocytes % 2 % (2-9); Neutrophils % 86 % (42-76); Total Cells Counted 100
[2020-08-25 06:30] LABS: Platelet Estimate Normal; RBC Morphology Normal
--- NOTE | 2020-08-25 06:55 | HMH.ACPN2 ---
Internal Medicine - PN: Subj *Date: 08/25/20 *Time: 06:55 Interval history: Patient has had no acute events. He continues to desat into the 80s with movement or conversation. Patient will recover with sats ranging from 92 to 98% on 3 to 6 L/min flow via the nasal cannula. CT scan was performed yesterday after white count had risen slightly with CT confirming the presence of groundglass opacities/infiltrates consistent with Covid pneumonia. Patient reports continued cough and believes he is producing sputum which he has been spitting into a soda bottle. He does not know the color. Patient was also given duo nebs per his request. Patient has not had wheezing during hospitalization. Respiratory therapy reports very little improvement if any after neb treatment Exam Vital signs and Labs for Last 24 Hours: Temp Pulse Resp BP Pulse Ox 97.6 F 74 18 133/75 87 L 08/25/20 03:51 08/25/20 06:47 08/25/20 03:51 08/25/20 03:51 08/25/20 06:47 Laboratory Results - last 24 hr 08/22/20 16:40: POC Glucose 325 H* 08/22/20 20:16: POC Glucose 338 H* 08/23/20 04:31: POC Glucose 188 H 08/23/20 10:25: POC Glucose 257 H 08/23/20 16:46: POC Glucose 337 H* 08/23/20 21:07: POC Glucose 290 H 08/24/20 07:00: WBC 11.4 H, RBC 5.23, Hgb 14.7, Hct 43.6, MCV 83.3, MCH 28.2, MCHC 33.8, RDW 14.1, Plt Count 223, MPV 8.3, Neut % (Auto) 82.9 H, Lymph % (Auto) 10.8, [place] % (Auto) 5.7, Eos % (Auto) 0.4, Baso % (Auto) 0.3, Neut # (Auto) 9.5 H, Lymph # (Auto) 1.2, [place] # (Auto) 0.7, Eos # (Auto) 0.0, Baso # (Auto) 0.0 08/24/20 07:00: Sodium 139, Potassium 3.8, Chloride 103, Carbon Dioxide 30, Anion Gap 9.8, BUN 23 H, Creatinine 0.90, Estimated Creat Clear 74, Estimated GFR 84, Est GFR ( Amer) 102 D, Glucose 128 H, Calcium 8.4, C-Reactive Protein 25.5 H D 08/24/20 10:59: POC Glucose 271 H 08/24/20 16:16: POC Glucose 340 H* 08/24/20 20:26: POC Glucose 246 H 08/25/20 05:20: WBC 9.4, RBC 4.80, Hgb 13.4 L, Hct 40.0 L, MCV 83.2, MCH 28.0, MCHC 33.6, RDW 14.4, Plt Count 187, MPV 8.4, Neut % (Auto) 85.7 H, Lymph % (Auto) 7.1 L, [place] % (Auto) 6.1, Eos % (Auto) 0.6, Baso % (Auto) 0.4, Neut # (Auto) 8.1 H, Lymph # (Auto) 0.7, [place] # (Auto) 0.6, Eos # (Auto) 0.1, Baso # (Auto) 0.0, Total Counted 100, Neutrophils % (Manual) 86 H, Lymphocytes % (Manual) 11, Monocytes % (Manual) 2, Eosinophils % (Manual) 1, Platelet Estimate Normal, RBC Morphology Normal 08/25/20 05:20: Sodium 137, Potassium 4.6 D, Chloride 103, Carbon Dioxide 29, Anion Gap 9.6, BUN 26 H, Creatinine 0.90, Estimated Creat Clear 80, Estimated GFR 84, Est GFR ( Amer) 102, Glucose 123 H, Calcium 8.3 L 08/25/20 05:26: POC Glucose 121 H I & O for Last 24 hours: Intake & Output 08/22/20 08/23/20 08/24/20 08/25/20 11:59 11:59 11:59 11:59 Intake Total 840 / 840 1547 / 1547 1260 / 1260 830 / 830 Output Total 1100 / 1100 1500 / 1500 900 / 900 1200 / 1200 Balance -260 / -260 47 / 47 360 / 360 -370 / -370 Weight 161 lb 3 oz 161 lb 3 oz 160 lb 6 oz 173 lb Microbiology Reports for the Last 24 Hours: Microbiology 08/19/20 14:38 Blood Blood Culture - Final NO GROWTH AFTER 5 DAYS 08/19/20 14:38 Blood Blood Culture - Final NO GROWTH AFTER 5 DAYS - Constitutional no acute distress - *Routine Respiratory Exam Comments: Patient with poor aeration and rales at the left posterior lung base and right lateral base - *Routine Cardiovascular Exam Present: RRR - *Routine Abdominal Exam Present: soft, normoactive bowel sounds. Absent: tenderness - *Routine Extremities Exam Absent: cyanosis, clubbing, edema Assessment and Plan (1) Pneumonia due to COVID-19 virus Status: Acute Category: Medical Code(s): U07.1 - COVID-19; J12.89 - Other viral pneumonia (2) COVID-19 Status: Acute Category: Medical Code(s): U07.1 - COVID-19 (3) Respiratory failure Status: Acute Qualifiers: Chronicity: acute on chronic R
--- NOTE | 2020-08-25 08:28 | HMH.PULMCON ---
*Admission Date: 08/19/20 *Reason for consult:: Acute hypoxic respiratory failure COVID-19 pneumonia *History of present illness: Mr. 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 COVID-19 PCR testing positive and patient was admitted to the ICU for further management. [facility] History Medical History: Reports:: Cancer, Chronic Obstructive Pulmonary Disease (COPD), Coronary Artery Disease, Diabetes Mellitus Type 2, Gastroesophageal Reflux Disease(GERD), Hiatal Hernia, Hyperlipidemia, Hypertension, Lung Disease (Prior aspergillosis infection, bronchiectasis of left lung), Myocardial Infarction, Palpitations, Renal Disease Denies:: Diabetes Mellitus Type 1, Internal Pacemaker, MRSA, Seizures *Have you ever received a pneumonia vaccine?: No *Have you received a flu vaccine this season?: No Other Medical History: Reports: Arthritis, Hypothyroidism. Denies: Blood Transfusion Reaction Other Surgeries: Yes: CABG, Cancer Surgery, Cardiac Catheterization, Cardiac Surgery, Hernia Repair, Other (CABG, LHC, 2 stents in kidney, pancreas surgery). No: Pacemaker Amputation: No Fractures: No - *Social History Smoking Status: Former smoker Tobacco Type: cigarettes #Yrs smoked (if former smoker): 20 Alcohol Intake: never Substance Use Type: denies use *Occupational Status:: retired Housing: house Household Members: spouse *Travel in the last 8 weeks: None Family Hx:: Coronary Artery Disease, Heart Attack ROS - Review of Systems Review of systems:: pertinent systems reviewed and negative unless documented below - Eyes Denies blind spots - Card Reports shortness of breath, Reports shortness of breath with activity, Denies chest pain, Denies chest pain at rest, Denies leg swelling, Denies shortness of breath when lying down - Resp Respiratory: No change in phlegm color, No chest congestion, Yes cough, Yes dyspnea, Yes dyspnea on exertion, Yes excessive phlegm production - GI Gastrointestingal: Reports: system reviewed and no additional complaints, except as docu - [place] Musculoskeletal: Reports system reviewed and no additional complaints, except as docu Meds Home Medications Medication Instructions Recorded Confirmed Type aspirin 81 mg tablet,delayed 81 mg PO DAILY 10/10/17 08/20/20 History release simvastatin 40 mg tablet 40 mg PO HS 10/10/17 08/20/20 History albuterol sulfate 90 mcg/actuation 1 inh INHALATION QID PRN #6.7 g 06/01/20 08/19/20 Rx aerosol inhaler glimepiride 4 mg tablet 4 mg PO BID tab 06/25/20 08/20/20 History Empagliflozin [Jardiance] 25 mg PO DAILY 08/20/20 08/20/20 History Gabapentin 300 mg PO BID 08/20/20 08/20/20 History Levothyroxine Sodium 175 mcg PO DAILY 08/20/20 08/20/20 History [Levothyroxine 175mcg (0.175mg) Tab] Loratadine [Claritin] 10 mg PO DAILY 08/20/20 08/20/20 History Metoprolol Tartrate [Lopressor 25 mg PO BID 08/20/20 08/20/20 History 25mg tablet] Naproxen [Naproxen 250mg Tab] 1 tab PO BID 08/20/20 08/20/20 History Pioglitazone HCl 15 mg PO DAILY 08/20/20 08/20/20 History Tamsulosin HCl 0.4 mg PO DAILY 08/20/20 08/20/20 History Allergies Allergy/AdvReac Type Severity Reaction Status Date / Time No Known Allergies Allergy Verified 08/19/20 21:00 Exam - Constitutional Constitutional:: no acute distress, comfortable, healthy appearing - HENMT Exam HENMT: normocephalic, atraumatic - Neck Exam Neck:: normal visual inspection, thyroid normal, no lymphadenopathy - Respiratory Exam Respiratory:: able to speak in complete sentences, bibailar crackels heard Comments: Patient appears comfortable not using any accessory muscles, on 6 L nasal cannula supplementation saturating 95 to 96%. - Cardiovascular Exam Cardiac:: S1, S2 - GI Exa
[2020-08-25 11:26] LABS: POC Glucose,Bedside 316 (70-110)
--- NOTE | 2020-08-25 19:59 | PC.NURSE ---
Pt alert and oriented and able to make needs known. Pt continues on 6 L NC at this time and is currently satting 99%. Did ensure with Dr. Norman that pt was ok to be on 6 L for period of time NC and he stated yes. Pt is up to chair at this time and has been for several hours. No c/o at this time. VSS. Have encouraged incentive spirometer. FS was 508 and repeated test and it was 475. Did notify Dr. Carrera and he ordered 24 units ssi. Pt was asymptomatic. CB in reach. VSS.
[2020-08-26] VITALS (10 sets, daily range): BP systolic 97–123; BP diastolic 48–66; PULSE 62–91; RESP 18–20; TEMP 36.4–36.7; O2SAT 91–97; BMI 24.1
--- NOTE | 2020-08-26 05:54 | PC.NURSE ---
Pt is A&Ox4. Lung sounds remain diminished. Pt has been on 5-6L t/o this shift with o2 sats remaining in the 90's. IS encouraged during awake hours. Pt did receive 30 units of humalog @ 2100 due to FSBS of 453 per MD Carrera. Later that evening, pt requested a candy bar and was educated on proper diet for diabetes. Pt verbalized understanding and instead requested a SF jello. Pt has rested well this entire shift. No other acute changes or complaints at this time. Will continue to monitor.
--- NOTE | 2020-08-26 06:58 | HMH.ACPN2 ---
Internal Medicine - PN: Subj *Date: 08/26/20 *Time: 06:58 Interval history: No acute events yesterday. Patient reports feeling possibly better. Nursing staff reports overnight patient's O2 sats remained 95 to 96% on nasal cannula at 6 L/min. Patient's blood sugars were elevated yesterday and he was given additional sliding scale insulin. This morning he awakens easily but is slightly confused claiming he has been blamed for someone's here in the hospital. Exam Vital signs and Labs for Last 24 Hours: Temp Pulse Resp BP Pulse Ox 98.1 F 76 18 107/54 L 94 L 08/26/20 04:00 08/26/20 04:00 08/26/20 04:00 08/26/20 04:00 08/26/20 04:00 Laboratory Results - last 24 hr 08/25/20 11:19: POC Glucose 316 H* I & O for Last 24 hours: Intake & Output 08/23/20 08/24/20 08/25/20 08/26/20 11:59 11:59 11:59 11:59 Intake Total 1547 / 1547 1260 / 1260 1190 / 1190 720 / 720 Output Total 1500 / 1500 900 / 900 1600 / 1600 1150 / 1150 Balance 47 / 47 360 / 360 -410 / -410 -430 / -430 Weight 161 lb 3 oz 160 lb 6 oz 173 lb 172 lb 9 oz Narrative: Patient is resting comfortably in bed when I enter the room. No increased work of breathing. Lungs have fair aeration with basilar rales posteriorly although not as prominent as previous days. Heart has a regular rate and rhythm. Abdomen is soft. Neurologically patient has full motor and sensory functions. Cranial nerves are grossly intact. He is oriented to person, place, time Assessment and Plan (1) Pneumonia due to COVID-19 virus Status: Acute Category: Medical Code(s): U07.1 - COVID-19; J12.89 - Other viral pneumonia (2) COVID-19 Status: Acute Category: Medical Code(s): U07.1 - COVID-19 (3) Respiratory failure Status: Acute Qualifiers: Chronicity: acute on chronic Respiratory failure complication: hypoxia Qualified Code(s): J96.21 - Acute and chronic respiratory failure with hypoxia Category: Medical Code(s): J96.90 - Respiratory failure, unspecified, unspecified whether with hypoxia or hypercapnia (4) Coronary artery disease Status: Acute Category: Medical Code(s): I25.10 - Atherosclerotic heart disease of [place] coronary artery without angina pectoris (5) Bronchiectasis Status: Acute Category: Medical Code(s): J47.9 - Bronchiectasis, uncomplicated (6) Interstitial lung disease Status: Acute Category: Medical Code(s): J84.9 - Interstitial pulmonary disease, unspecified (7) Diabetes mellitus Status: Acute Qualifiers: Diabetes mellitus type: type 2 Diabetes mellitus detention insulin use: unspecified vermin exterminator insulin use status Diabetes mellitus complication status: with other specified complication Qualified Code(s): E11.69 - Type 2 diabetes mellitus with other specified complication Category: Medical Code(s): E11.9 - Type 2 diabetes mellitus without complications (8) Essential hypertension Status: Acute Category: Medical Code(s): I10 - Essential (primary) hypertension (9) Ex-smoker Status: Acute Category: Social Hx Code(s): Z87.891 - Personal history of nicotine dependence (10) History of coronary artery bypass graft Status: Acute Category: Surgical Code(s): Z95.1 - Presence of aortocoronary bypass graft (11) Hypothyroidism Status: Acute Category: Medical Code(s): E03.9 - Hypothyroidism, unspecified (12) Mixed hyperlipidemia Status: Acute Category: Medical Code(s): E78.2 - Mixed hyperlipidemia (13) Hypokalemia Status: Resolved Category: Medical Code(s): E87.6 - Hypokalemia (14) Chronic restrictive lung disease Status: Acute Category: Medical Code(s): J98.4 - Other disorders of lung - Assessment and plan all Dx Assessment and Plan for all problems:: 1. Continue Remdesivir to complete a 10-day course 2. Goal O2 sats are 90 to 92% on 4 L or less. Patient will be weaned as tolerated and continue to be observed for significa
[2020-08-26 08:25] LABS: Basophils % 0.1 % (0.1-2.0); Eosinophils % 0.5 % (0.1-12.0); Hematocrit 40.6 % (42.0-52.0); Hemoglobin 13.2 g/dL (14.1-18.0); Lymphocytes # 0.6 K/mm3 (0.7-4.5); Lymphocytes % 6.5 % (10-50); Mean Corpuscular HGB Conc 32.7 g/dL (31.8-35.4); Mean Corpuscular Hemoglobin 27.8 pg (27.0-31.2); Mean Platelet Volume 8.5 fl (7.4-10.4); Monocytes # 0.4 K/mm3 (0.1-1.0); Monocytes % 5.2 % (1.7-9.3); Neutrophils # 7.5 K/mm3 (1.8-7.8); Neutrophils % 87.7 % (37.0-80.0); Platelet Count 191 K/mm3 (142-424); Red Blood Count 4.77 M/mm3 (4.60-6.20); Red Cell Distribution Width 14.4 % (11.5-17.5); White Blood Count 8.5 K/mm3 (4.8-10.8)
[2020-08-26 08:26] LABS: MANUAL DIFFERENTIAL MANUAL DIFFERENTIAL (MANUAL DIFF)
[2020-08-26 08:29] LABS: Chloride 103 mmol/L (98-107)
[2020-08-26 08:30] LABS: Potassium 4.5 mmoL/L (3.5-5.1); Sodium 135 mmol/L (136-145)
[2020-08-26 08:32] LABS: Blood Urea Nitrogen 30 mg/dl (9-20); Creatinine Clearance Estimated 72 mL/min (50-200); Estimated Glomerular Filt Rate 67 ml/min (>60); GFR (African American) 81 ML/MIN (>60)
[2020-08-26 08:33] LABS: Anion Gap 9.5 mEq/L (5-15); Calcium 8.3 mg/dl (8.4-10.2); Carbon Dioxide 27 mmol/L (22.0-30.0); Glucose 297 mg/dl (74-100)
--- NOTE | 2020-08-26 08:57 | HMH.PULMPN ---
Internal Medicine - PN: Subj *Date: 08/26/20 *Time: 10:19 Interval history: No acute events overnight. Patient respiratory status remained stable. Exam - Constitutional Constitutional:: no acute distress, comfortable - HENMT Exam HENMT: normocephalic, atraumatic - Eye Exam Eyes:: normal appearance both eyes and related structures - Neck Exam Neck:: normal visual inspection, thyroid normal, no lymphadenopathy - Respiratory Exam Respiratory:: able to speak in complete sentences, normal respiratory effort Comments: Patient in mild respiratory distress. Bilateral coarse breath sounds unchanged from yesterday. No use of accessory muscles - Cardiovascular Exam Cardiac:: S1, S2 - GI Exam GI:: soft, no hepatosplenomegaly - Skin Exam Skin: warm, no rash, dry - Neurological Exam Neurological: alert, awake, normal cognition - Extremities Exam Extremities: no cyanosis, no clubbing, no edema - Psychiatric Exam Psychiatric: normal affect Assessment and Plan (1) Pneumonia due to COVID-19 virus Status: Acute Category: Medical Code(s): U07.1 - COVID-19; J12.89 - Other viral pneumonia (2) COVID-19 Status: Acute Category: Medical Code(s): U07.1 - COVID-19 (3) Respiratory failure Status: Acute Qualifiers: Chronicity: acute on chronic Respiratory failure complication: hypoxia Qualified Code(s): J96.21 - Acute and chronic respiratory failure with hypoxia Category: Medical Code(s): J96.90 - Respiratory failure, unspecified, unspecified whether with hypoxia or hypercapnia (4) Coronary artery disease Status: Acute Category: Medical Code(s): I25.10 - Atherosclerotic heart disease of [place] coronary artery without angina pectoris (5) Bronchiectasis Status: Acute Category: Medical Code(s): J47.9 - Bronchiectasis, uncomplicated (6) Interstitial lung disease Status: Acute Category: Medical Code(s): J84.9 - Interstitial pulmonary disease, unspecified (7) Diabetes mellitus Status: Acute Qualifiers: Diabetes mellitus type: type 2 Diabetes mellitus group home insulin use: unspecified extermination supervisor insulin use status Diabetes mellitus complication status: with other specified complication Qualified Code(s): E11.69 - Type 2 diabetes mellitus with other specified complication Category: Medical Code(s): E11.9 - Type 2 diabetes mellitus without complications (8) Essential hypertension Status: Acute Category: Medical Code(s): I10 - Essential (primary) hypertension (9) Ex-smoker Status: Acute Category: Social Hx Code(s): Z87.891 - Personal history of nicotine dependence (10) History of coronary artery bypass graft Status: Acute Category: Surgical Code(s): Z95.1 - Presence of aortocoronary bypass graft (11) Hypothyroidism Status: Acute Category: Medical Code(s): E03.9 - Hypothyroidism, unspecified (12) Mixed hyperlipidemia Status: Acute Category: Medical Code(s): E78.2 - Mixed hyperlipidemia (13) Hypokalemia Status: Resolved Category: Medical Code(s): E87.6 - Hypokalemia (14) Chronic restrictive lung disease Status: Acute Category: Medical Code(s): J98.4 - Other disorders of lung - Assessment and plan all Dx Assessment and Plan for all problems:: #Acute on chronic hypoxic respiratory failure: #COVID-19 pneumonia: 69-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 COVID-19 serology tested positive. Cultures no growth so far. Sputum culture showed normal respiratory loyda. No evidence of leukocytosis. Patient from the last 48 hours. Renal function stable. Hemodynamically s
[2020-08-26 09:20] LABS: Lymphocytes % 7 % (10-50); Monocytes % 4 % (2-9); Neutrophils % 89 % (42-76); Platelet Estimate Normal; RBC Morphology Normal; Total Cells Counted 100
--- NOTE | 2020-08-26 11:42 | PC.NURSE ---
FSBS 469. Contacted Dr. Carrera. Will await new order.
--- NOTE | 2020-08-26 12:47 | PC.NURSE ---
Dr. Carrera ordered 30 units SSI.
[2020-08-26 16:11] LABS: POC Glucose,Bedside 453 (70-110)
[2020-08-26 16:11] LABS: POC Glucose,Bedside 469 (70-110)
[2020-08-26 16:11] LABS: POC Glucose,Bedside 144 (70-110)
--- NOTE | 2020-08-26 16:35 | PC.NURSE ---
FSBS 456. Contacted Dr. Carrera
[2020-08-26 16:41] LABS: POC Glucose,Bedside 456 (70-110)
--- NOTE | 2020-08-26 16:59 | PC.NURSE ---
Dr. Carrera ordered 30 units SSI for FSBS 456
--- NOTE | 2020-08-26 17:28 | PC.NURSE ---
shift note: Pt has done well this shift. Remains on 4.5L NC cont with sats above 90%. He uses IS frequently. Has a dry hacky cough, non productive. Bilateral lungs clear. No edema. Biggest issue has been his blood sugars. He has required 30 units of SSI at 1100 and again @ 1630 for FSBS>450. Remains A&O. Denies pain.
[2020-08-26 20:12] LABS: POC Glucose,Bedside 393 (70-110)
--- NOTE | 2020-08-26 23:49 | PC.NURSE ---
have been able to successfully titrate o2 down to 3 l nc this evening. patient breathing pattern remains unlabored
[2020-08-27] VITALS (10 sets, daily range): BP systolic 103–149; BP diastolic 56–76; PULSE 56–81; RESP 18–20; TEMP 36.4–37.2; O2SAT 86–95; BMI 23.1
--- NOTE | 2020-08-27 04:25 | PC.NURSE ---
have been able to successfully titrate oxygen down to 2 l nc. patient will drop to 88% percent when moving in bed but recovers back up to 90% within 5 min and ofter times will return back to 94-95% with 15 min. breath sounds remain diminished more so on the left. patient breathing pattern has been unlabored with rate below 20. denies soa, nausea, vomiting or pain .
[2020-08-27 05:30] LABS: Chloride 104 mmol/L (98-107); Sodium 138 mmol/L (136-145)
[2020-08-27 05:31] LABS: Potassium 5.4 mmoL/L (3.5-5.1)
[2020-08-27 05:33] LABS: Blood Urea Nitrogen 29 mg/dl (9-20); Creatinine Clearance Estimated 76 mL/min (50-200); Estimated Glomerular Filt Rate 75 ml/min (>60); GFR (African American) 90 ML/MIN (>60)
[2020-08-27 05:34] LABS: Anion Gap 9.4 mEq/L (5-15); Calcium 8.8 mg/dl (8.4-10.2); Carbon Dioxide 30 mmol/L (22.0-30.0); Glucose 168 mg/dl (74-100)
[2020-08-27 05:36] LABS: Basophils % 0.2 % (0.1-2.0); Eosinophils % 0.1 % (0.1-12.0); Hematocrit 43.1 % (42.0-52.0); Hemoglobin 14.1 g/dL (14.1-18.0); Lymphocytes # 0.5 K/mm3 (0.7-4.5); Lymphocytes % 5.3 % (10-50); Mean Corpuscular HGB Conc 32.7 g/dL (31.8-35.4); Mean Corpuscular Hemoglobin 28.4 pg (27.0-31.2); Mean Corpuscular Volume 86.9 fl (80-94); Mean Platelet Volume 8.9 fl (7.4-10.4); Monocytes # 0.5 K/mm3 (0.1-1.0); Monocytes % 5.1 % (1.7-9.3); Neutrophils # 8.9 K/mm3 (1.8-7.8); Neutrophils % 89.3 % (37.0-80.0); Platelet Count 183 K/mm3 (142-424); Red Blood Count 4.96 M/mm3 (4.60-6.20); Red Cell Distribution Width 14.4 % (11.5-17.5)
[2020-08-27 05:40] LABS: MANUAL DIFFERENTIAL MANUAL DIFFERENTIAL (MANUAL DIFF)
[2020-08-27 06:21] LABS: Lymphocytes % 15 % (10-50); Monocytes % 2 % (2-9); Neutrophils % 83 % (42-76); Platelet Estimate Normal; RBC Morphology Normal; Total Cells Counted 100
--- NOTE | 2020-08-27 06:50 | PC.NURSE ---
after am breathing treatment o2 sats dropped to 79%, after 20 min sats still at 88%, o2 increased back up to 3 l nc.
--- NOTE | 2020-08-27 07:44 | HMH.ACPN2 ---
Internal Medicine - PN: Subj *Date: 08/27/20 *Time: 07:44 Interval history: Patient has done well overnight and nursing reports that O2 sats have been in the mid 90s on 2 L of oxygen. This morning after breathing treatment and conversation he has desatted to the high 80s. Patient denies shortness of breath during interview Exam Vital signs and Labs for Last 24 Hours: Temp Pulse Resp BP Pulse Ox 98.5 F 74 20 149/76 H 93 L 08/27/20 03:59 08/27/20 06:45 08/27/20 03:59 08/27/20 03:59 08/27/20 03:59 Laboratory Results - last 24 hr 08/25/20 20:19: POC Glucose 453 H* 08/26/20 06:06: POC Glucose 144 H 08/26/20 08:10: WBC 8.5, RBC 4.77, Hgb 13.2 L, Hct 40.6 L, MCV 85.0, MCH 27.8, MCHC 32.7, RDW 14.4, Plt Count 191, MPV 8.5, Neut % (Auto) 87.7 H, Lymph % (Auto) 6.5 L, [place] % (Auto) 5.2, Eos % (Auto) 0.5, Baso % (Auto) 0.1, Neut # (Auto) 7.5, Lymph # (Auto) 0.6 L, [place] # (Auto) 0.4, Eos # (Auto) 0.0, Baso # (Auto) 0.0, Total Counted 100, Neutrophils % (Manual) 89 H, Lymphocytes % (Manual) 7 L, Monocytes % (Manual) 4, Platelet Estimate Normal, RBC Morphology Normal 08/26/20 08:10: Sodium 135 L, Potassium 4.5, Chloride 103, Carbon Dioxide 27, Anion Gap 9.5, BUN 30 H, Creatinine 1.10 D, Estimated Creat Clear 72, Estimated GFR 67, Est GFR ( Amer) 81 D, Glucose 297 H, Calcium 8.3 L 08/26/20 11:38: POC Glucose 469 H* 08/26/20 16:34: POC Glucose 456 H* 08/26/20 20:05: POC Glucose 393 H* 08/27/20 04:40: WBC 10.0, RBC 4.96, Hgb 14.1, Hct 43.1, MCV 86.9, MCH 28.4, MCHC 32.7, RDW 14.4, Plt Count 183, MPV 8.9, Neut % (Auto) 89.3 H, Lymph % (Auto) 5.3 L, [place] % (Auto) 5.1, Eos % (Auto) 0.1, Baso % (Auto) 0.2, Neut # (Auto) 8.9 H, Lymph # (Auto) 0.5 L, [place] # (Auto) 0.5, Eos # (Auto) 0.0, Baso # (Auto) 0.0, Total Counted 100, Neutrophils % (Manual) 83 H, Lymphocytes % (Manual) 15, Monocytes % (Manual) 2, Platelet Estimate Normal, RBC Morphology Normal 08/27/20 04:40: Sodium 138, Potassium 5.4 H, Chloride 104, Carbon Dioxide 30, Anion Gap 9.4, BUN 29 H, Creatinine 1.00, Estimated Creat Clear 76, Estimated GFR 75, Est GFR ( Amer) 90, Glucose 168 H D, Calcium 8.8 I & O for Last 24 hours: Intake & Output 08/24/20 08/25/20 08/26/20 08/27/20 11:59 11:59 11:59 11:59 Intake Total 1260 / 1260 1190 / 1190 960 / 960 1160 / 1160 Output Total 900 / 900 1600 / 1600 2100 / 2100 975 / 975 Balance 360 / 360 -410 / -410 -1140 / -1140 185 / 185 Weight 160 lb 6 oz 173 lb 172 lb 9 oz 165 lb Narrative: Patient appears comfortable. Lungs seem to have some improved aeration compared to yesterday with decrease in the intensity of basilar rales. Heart has a regular rate and rhythm Assessment and Plan (1) Pneumonia due to COVID-19 virus Status: Acute Category: Medical Code(s): U07.1 - COVID-19; J12.89 - Other viral pneumonia (2) COVID-19 Status: Acute Category: Medical Code(s): U07.1 - COVID-19 (3) Respiratory failure Status: Acute Qualifiers: Chronicity: acute on chronic Respiratory failure complication: hypoxia Qualified Code(s): J96.21 - Acute and chronic respiratory failure with hypoxia Category: Medical Code(s): J96.90 - Respiratory failure, unspecified, unspecified whether with hypoxia or hypercapnia (4) Coronary artery disease Status: Acute Category: Medical Code(s): I25.10 - Atherosclerotic heart disease of [place] coronary artery without angina pectoris (5) Bronchiectasis Status: Acute Category: Medical Code(s): J47.9 - Bronchiectasis, uncomplicated (6) Interstitial lung disease Status: Acute Category: Medical Code(s): J84.9 - Interstitial pulmonary disease, unspecified (7) Diabetes mellitus Status: Acute Qualifiers: Diabetes mellitus type: type 2 Diabetes mellitus usp insulin use: unspecified usp insulin use status Diabetes mellitus complication status: with other specified complication Qualified Code(s): E11.69 - Type 2 diabetes mellitus with other spe
[2020-08-27 11:38] LABS: POC Glucose,Bedside 345 (70-110)
--- NOTE | 2020-08-27 12:55 | HMH.PULMPN ---
Internal Medicine - PN: Subj *Date: 08/27/20 *Time: 12:55 Interval history: No acute respiratory events overnight, oxygen requirements improving Exam - Constitutional Constitutional:: no acute distress, comfortable - HENMT Exam HENMT: normocephalic, atraumatic - Eye Exam Eyes:: normal appearance both eyes and related structures - Neck Exam Neck:: normal visual inspection, thyroid normal, no lymphadenopathy - Respiratory Exam Respiratory:: able to speak in complete sentences, no respiratory distress Comments: Bilateral coarse breath sounds predominantly lower lobes, improved from yesterday - Cardiovascular Exam Cardiac:: S1, S2 - GI Exam GI:: soft, no hepatosplenomegaly - Skin Exam Skin: warm, no rash - Neurological Exam Neurological: awake, normal cognition - Extremities Exam Extremities: no cyanosis, no clubbing - Psychiatric Exam Psychiatric: normal affect Assessment and Plan (1) Pneumonia due to COVID-19 virus Status: Acute Category: Medical Code(s): U07.1 - COVID-19; J12.89 - Other viral pneumonia (2) COVID-19 Status: Acute Category: Medical Code(s): U07.1 - COVID-19 (3) Respiratory failure Status: Acute Qualifiers: Chronicity: acute on chronic Respiratory failure complication: hypoxia Qualified Code(s): J96.21 - Acute and chronic respiratory failure with hypoxia Category: Medical Code(s): J96.90 - Respiratory failure, unspecified, unspecified whether with hypoxia or hypercapnia (4) Coronary artery disease Status: Acute Category: Medical Code(s): I25.10 - Atherosclerotic heart disease of [place] coronary artery without angina pectoris (5) Bronchiectasis Status: Acute Category: Medical Code(s): J47.9 - Bronchiectasis, uncomplicated (6) Interstitial lung disease Status: Acute Category: Medical Code(s): J84.9 - Interstitial pulmonary disease, unspecified (7) Diabetes mellitus Status: Acute Qualifiers: Diabetes mellitus type: type 2 Diabetes mellitus care home insulin use: 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 Diabetes mellitus complication status: with other specified complication Qualified Code(s): E11.69 - Type 2 diabetes mellitus with other specified complication Category: Medical Code(s): E11.9 - Type 2 diabetes mellitus without complications (8) Essential hypertension Status: Acute Category: Medical Code(s): I10 - Essential (primary) hypertension (9) Ex-smoker Status: Acute Category: Social Hx Code(s): Z87.891 - Personal history of nicotine dependence (10) History of coronary artery bypass graft Status: Acute Category: Surgical Code(s): Z95.1 - Presence of aortocoronary bypass graft (11) Hypothyroidism Status: Acute Category: Medical Code(s): E03.9 - Hypothyroidism, unspecified (12) Mixed hyperlipidemia Status: Acute Category: Medical Code(s): E78.2 - Mixed hyperlipidemia (13) Hypokalemia Status: Resolved Category: Medical Code(s): E87.6 - Hypokalemia (14) Chronic restrictive lung disease Status: Acute Category: Medical Code(s): J98.4 - Other disorders of lung - Assessment and plan all Dx Assessment and Plan for all problems:: #Acute on chronic hypoxic respiratory failure: #COVID-19 pneumonia: 69-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 COVID-19 serology tested positive. Cultures no growth so far. Sputum culture showed normal respiratory loyda. Completed 5-day course of ceftriaxone and azithromycin Interval update: Patient respiratory status continued to improve slowly, as requirements decreased to 3 to 4 L nasal
--- NOTE | 2020-08-27 15:37 | PC.NURSE ---
Patient has been pleasant and cooperative with care this shift, remains on 4LNC at this time, oxygen saturations decrease very quickly with minimal exertion and takes around 20-25 minutes to recover, pt does not appear to be in any distress even when his oxygen saturations are decreased, lung sounds diminished t/o with scattered rales, HR reg, no edema noted, peripheral pulses 2+, perrla, alert and oriented x4, denies any cp, abd soft and nontender, active bowel sounds in all quads, voids per urinal without difficulty, urine yellow and clear, no s/s of distress noted, vss, will continue to monitor.
[2020-08-28 04:00] VITALS: BP 133/63; PULSE 62; RESP 19; TEMP 36.6; O2SAT 90
[2020-08-28 05:00] VITALS: BMI 18.6
--- NOTE | 2020-08-28 05:43 | PC.NURSE ---
patient desated down to 78% once this shift with extensive talking patient recovered within 20 min. patient states i'm going to the house today patient coughing spells have been less severe tonight
--- NOTE | 2020-08-28 06:48 | HMH.ACPN2 ---
Internal Medicine - PN: Subj *Date: 08/28/20 *Time: 06:48 Interval history: Patient has no new complaints. Nursing staff reports patient has remained on nasal cannula at 3 L/min with sats in the mid 90s throughout the night. Exam Vital signs and Labs for Last 24 Hours: Temp Pulse Resp BP Pulse Ox 97.8 F 62 19 133/63 90 L 08/28/20 04:00 08/28/20 04:00 08/28/20 04:00 08/28/20 04:00 08/28/20 04:00 Laboratory Results - last 24 hr 08/27/20 11:29: POC Glucose 345 H* I & O for Last 24 hours: Intake & Output 08/25/20 08/26/20 08/27/20 08/28/20 11:59 11:59 11:59 11:59 Intake Total 1190 / 1190 960 / 960 1520 / 1520 580 / 580 Output Total 1600 / 1600 2100 / 2100 1175 / 1175 1200 / 1200 Balance -410 / -410 -1140 / -1140 345 / 345 -620 / -620 Weight 173 lb 172 lb 9 oz 165 lb 133 lb 5 oz Narrative: Patient looks comfortable. He shows no increased work of breathing at rest. With talking and movement in the bed patient quickly desaturates to 85%. Patient recovers to 90% within 3 minutes. Lungs have fair aeration with improvement in rales at the bases. Heart has a regular rate and rhythm. Assessment and Plan (1) Pneumonia due to COVID-19 virus Status: Acute Category: Medical Code(s): U07.1 - COVID-19; J12.89 - Other viral pneumonia (2) COVID-19 Status: Acute Category: Medical Code(s): U07.1 - COVID-19 (3) Respiratory failure Status: Acute Qualifiers: Chronicity: acute on chronic Respiratory failure complication: hypoxia Qualified Code(s): J96.21 - Acute and chronic respiratory failure with hypoxia Category: Medical Code(s): J96.90 - Respiratory failure, unspecified, unspecified whether with hypoxia or hypercapnia (4) Coronary artery disease Status: Acute Category: Medical Code(s): I25.10 - Atherosclerotic heart disease of [place] coronary artery without angina pectoris (5) Bronchiectasis Status: Acute Category: Medical Code(s): J47.9 - Bronchiectasis, uncomplicated (6) Interstitial lung disease Status: Acute Category: Medical Code(s): J84.9 - Interstitial pulmonary disease, unspecified (7) Diabetes mellitus Status: Acute Qualifiers: Diabetes mellitus type: type 2 Diabetes mellitus intermediate teacher insulin use: unspecified detention insulin use status Diabetes mellitus complication status: with other specified complication Qualified Code(s): E11.69 - Type 2 diabetes mellitus with other specified complication Category: Medical Code(s): E11.9 - Type 2 diabetes mellitus without complications (8) Essential hypertension Status: Acute Category: Medical Code(s): I10 - Essential (primary) hypertension (9) Ex-smoker Status: Acute Category: Social Hx Code(s): Z87.891 - Personal history of nicotine dependence (10) History of coronary artery bypass graft Status: Acute Category: Surgical Code(s): Z95.1 - Presence of aortocoronary bypass graft (11) Hypothyroidism Status: Acute Category: Medical Code(s): E03.9 - Hypothyroidism, unspecified (12) Mixed hyperlipidemia Status: Acute Category: Medical Code(s): E78.2 - Mixed hyperlipidemia (13) Hypokalemia Status: Resolved Category: Medical Code(s): E87.6 - Hypokalemia (14) Chronic restrictive lung disease Status: Acute Category: Medical Code(s): J98.4 - Other disorders of lung - Assessment and plan all Dx Assessment and Plan for all problems:: 1. Complete day 10 of Remdesivir and dexamethasone 2. Patient has been asked to ambulate to the bathroom the next time he needs to use a urinal with assessment of how low the patient desaturates and how quickly he recovers. If patient is shown improvement in regards to ambulating consideration is being given to discharging patient home this evening
--- NOTE | 2020-08-28 07:42 | SW/DCPLANNER ---
Addendum entered by Alyson Espinoza 08/28/20 12:19: Sarai with [facility] stating that patient information and order was received. Sarai has stated that a portable tank will be delivered to this patients room today. Addendum entered by Alyson Espinoza 08/28/20 11:16: Patient information and order has been faxed to [facility]: phone: [phone] fax: [phone] Addendum entered by Alyson Espinoza 08/28/20 11:07: Patient is currently established with home O2 through [facility] out of [place]. I will make contact with [facility] and [facility] not be delivering portable O2. Addendum entered by Alyson Espinoza 08/28/20 10:10: Isaura with [facility] has stated that portable O2 tank will be delivered today. Original Note: This patient will need home O2 at time of discharge. Patient currently has home oxygen for nighttime thru [facility]. I will fax patient information/order to [facility] for home oxygen 03/04 and portable tank. This patient could discharge home later today. I will have a portable tank delivered to patients room today.
[2020-08-28 07:48] VITALS: BP 95/67; PULSE 63; RESP 18; TEMP 36.5; O2SAT 92
[2020-08-28 08:53] VITALS: O2SAT 72
--- NOTE | 2020-08-28 11:25 | PC.NURSE ---
while dr. ventura was at bedside he had pt stand up and pt desat to 85% with 3LNC. pt gave self a bedside bath and desat to 86% with 3LNC.
--- NOTE | 2020-08-28 11:36 | HMH.PULMPN ---
Internal Medicine - PN: Subj *Date: 08/28/20 *Time: 11:36 Interval history: No acute respiratory events overnight. Patient respiratory status remained stable. Exam - Constitutional Constitutional:: no acute distress, comfortable, healthy appearing - HENMT Exam HENMT: normocephalic, atraumatic - Eye Exam Eyes:: normal appearance both eyes and related structures - Neck Exam Neck:: normal visual inspection, thyroid normal, no lymphadenopathy - Respiratory Exam Respiratory:: able to speak in complete sentences Comments: Patient appears to be in mild respiratory distress saturating 89 to 91% on 3 L nasal cannula however patient has significant desaturation with minimal exertion. Patient desaturated to 80% chest standing up from the chair. Patient revealed bilateral coarse breath sounds - Cardiovascular Exam Cardiac:: S1, S2 - GI Exam GI:: soft, no hepatosplenomegaly - Skin Exam Skin: warm, no rash - Neurological Exam Neurological: alert, awake, normal cognition - Extremities Exam Extremities: no cyanosis, no clubbing, no edema Assessment and Plan (1) Pneumonia due to COVID-19 virus Status: Acute Category: Medical Code(s): U07.1 - COVID-19; J12.89 - Other viral pneumonia (2) COVID-19 Status: Acute Category: Medical Code(s): U07.1 - COVID-19 (3) Respiratory failure Status: Acute Qualifiers: Chronicity: acute on chronic Respiratory failure complication: hypoxia Qualified Code(s): J96.21 - Acute and chronic respiratory failure with hypoxia Category: Medical Code(s): J96.90 - Respiratory failure, unspecified, unspecified whether with hypoxia or hypercapnia (4) Coronary artery disease Status: Acute Category: Medical Code(s): I25.10 - Atherosclerotic heart disease of [place] coronary artery without angina pectoris (5) Bronchiectasis Status: Acute Category: Medical Code(s): J47.9 - Bronchiectasis, uncomplicated (6) Interstitial lung disease Status: Acute Category: Medical Code(s): J84.9 - Interstitial pulmonary disease, unspecified (7) Diabetes mellitus Status: Acute Qualifiers: Diabetes mellitus type: type 2 Diabetes mellitus longwall headgate operator insulin use: unspecified longwall headgate operator insulin use status Diabetes mellitus complication status: with other specified complication Qualified Code(s): E11.69 - Type 2 diabetes mellitus with other specified complication Category: Medical Code(s): E11.9 - Type 2 diabetes mellitus without complications (8) Essential hypertension Status: Acute Category: Medical Code(s): I10 - Essential (primary) hypertension (9) Ex-smoker Status: Acute Category: Social Hx Code(s): Z87.891 - Personal history of nicotine dependence (10) History of coronary artery bypass graft Status: Acute Category: Surgical Code(s): Z95.1 - Presence of aortocoronary bypass graft (11) Hypothyroidism Status: Acute Category: Medical Code(s): E03.9 - Hypothyroidism, unspecified (12) Mixed hyperlipidemia Status: Acute Category: Medical Code(s): E78.2 - Mixed hyperlipidemia (13) Hypokalemia Status: Resolved Category: Medical Code(s): E87.6 - Hypokalemia (14) Chronic restrictive lung disease Status: Acute Category: Medical Code(s): J98.4 - Other disorders of lung - Assessment and plan all Dx Assessment and Plan for all problems:: #Acute on chronic hypoxic respiratory failure: #COVID-19 pneumonia: 69-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 COVID-19 serology tested positive. Cultures no growth so far. Sputum culture showed normal respiratory loyda. Completed 5-d
[2020-08-28 11:45] VITALS: BP 108/63; PULSE 61; RESP 18; TEMP 36.4; O2SAT 92
[2020-08-28 16:00] VITALS: BP 112/63; PULSE 65; RESP 18; TEMP 36.5; O2SAT 98
[2020-08-28 16:32] LABS: POC Glucose,Bedside 457 (70-110)
[2020-08-28 16:32] LABS: POC Glucose,Bedside 191 (70-110)
[2020-08-28 16:32] LABS: POC Glucose,Bedside 324 (70-110)
[2020-08-28 16:32] LABS: POC Glucose,Bedside 341 (70-110)
[2020-08-28 16:32] LABS: POC Glucose,Bedside 273 (70-110)
--- NOTE | 2020-08-28 16:43 | DIET.NUTRFU ---
PO intakes 75% + protein shake BID, BG avg 320 past 48hrs. Protein supplementation changed to QID. Suspect error in 30# weight loss recorded past 24 hrs..8# weight loss recorded prior. Continuing to monitor.
--- NOTE | 2020-08-28 16:47 | HMH.ACPN2 ---
Internal Medicine - PN: Subj *Date: 08/28/20 *Time: 16:47 Interval history: Patient reassessed this afternoon. He reports doing well. He had had a short walk with Dr. Norman earlier today. Exam Vital signs and Labs for Last 24 Hours: Temp Pulse Resp BP Pulse Ox 97.7 F 65 18 112/63 98 08/28/20 16:00 08/28/20 16:00 08/28/20 16:00 08/28/20 16:00 08/28/20 16:00 Laboratory Results - last 24 hr 08/27/20 16:34: POC Glucose 273 H 08/27/20 20:38: POC Glucose 341 H* 08/28/20 05:11: POC Glucose 191 H 08/28/20 10:51: POC Glucose 324 H* 08/28/20 16:07: POC Glucose 457 H* I & O for Last 24 hours: Intake & Output 08/26/20 08/27/20 08/28/20 08/29/20 11:59 11:59 11:59 11:59 Intake Total 960 / 960 1520 / 1520 940 / 940 480 / 480 Output Total 2100 / 2100 1175 / 1175 1650 / 1650 250 / 250 Balance -1140 / -1140 345 / 345 -710 / -710 230 / 230 Weight 172 lb 9 oz 165 lb 133 lb 5 oz Narrative: Patient was walked again from his bed to the toilet in his bathroom which is estimated at approximately 15 feet. Prior to ambulating patient's resting room air sat was 94 to 96% on 4 L of oxygen and resting pulse rate of 67 bpm. Patient ambulated 15 feet to the bathroom and sat on the toilet. Patient desatted to 88% with pulse rising to 78 bpm. Within 1 minute patient's sats returned to 90%. After resting period of 4 to 5 minutes patient ambulated back from the toilet to his bed. O2 sats once again decreased to 85 to 89%. Within 5 minutes patient's O2 sat had risen to 90 to 91% on 4 L oxygen. Assessment and Plan (1) Pneumonia due to COVID-19 virus Status: Acute Category: Medical Code(s): U07.1 - COVID-19; J12.89 - Other viral pneumonia (2) COVID-19 Status: Acute Category: Medical Code(s): U07.1 - COVID-19 (3) Respiratory failure Status: Acute Qualifiers: Chronicity: acute on chronic Respiratory failure complication: hypoxia Qualified Code(s): J96.21 - Acute and chronic respiratory failure with hypoxia Category: Medical Code(s): J96.90 - Respiratory failure, unspecified, unspecified whether with hypoxia or hypercapnia (4) Coronary artery disease Status: Acute Category: Medical Code(s): I25.10 - Atherosclerotic heart disease of [place] coronary artery without angina pectoris (5) Bronchiectasis Status: Acute Category: Medical Code(s): J47.9 - Bronchiectasis, uncomplicated (6) Interstitial lung disease Status: Acute Category: Medical Code(s): J84.9 - Interstitial pulmonary disease, unspecified (7) Diabetes mellitus Status: Acute Qualifiers: Diabetes mellitus type: type 2 Diabetes mellitus superintendent terminal insulin use: unspecified halfway insulin use status Diabetes mellitus complication status: with other specified complication Qualified Code(s): E11.69 - Type 2 diabetes mellitus with other specified complication Category: Medical Code(s): E11.9 - Type 2 diabetes mellitus without complications (8) Essential hypertension Status: Acute Category: Medical Code(s): I10 - Essential (primary) hypertension (9) Ex-smoker Status: Acute Category: Social Hx Code(s): Z87.891 - Personal history of nicotine dependence (10) History of coronary artery bypass graft Status: Acute Category: Surgical Code(s): Z95.1 - Presence of aortocoronary bypass graft (11) Hypothyroidism Status: Acute Category: Medical Code(s): E03.9 - Hypothyroidism, unspecified (12) Mixed hyperlipidemia Status: Acute Category: Medical Code(s): E78.2 - Mixed hyperlipidemia (13) Hypokalemia Status: Resolved Category: Medical Code(s): E87.6 - Hypokalemia (14) Chronic restrictive lung disease Status: Acute Category: Medical Code(s): J98.4 - Other disorders of lung - Assessment and plan all Dx Assessment and Plan for all problems:: A long discussion was had with the patient regarding return to home. Certainly within the last 24 to 48 h
--- NOTE | 2020-08-28 16:52 | PC.NURSE ---
Patient is resting on side of bed. Neurologically patient is intact, oriented x 4. Respiratory: patient is on 3l of oxygen saturation of 92. Has desatted to mid 80's today but rebounds well. GI patient has eaten well, no n/v/d. patient is using urinal. Skin c/d/i. Patient gave himself a bath today Patient being discharged per . Oxygen delivered by [facility] which will be going home with patient. FSBG was elevated, notiifed who ordered 30 units of ssi. Medication given and tolerated by patient.
--- NOTE | 2020-08-28 16:55 | HMH.DCSUM ---
General - General Admission date:: 08/19/20 Discharge date: 08/28/20 HPI HPI: 69-year-old male came to the emergency department yesterday evening with shortness of breath. Patient had suspected COVID-19 beginning last week. His was diagnosed with COVID-19 on August 10. Patient started having symptoms 2 to 3 days later. However at that time patient was resistant to getting tested or evaluated. Patient symptoms primarily included cough that was nonproductive, general malaise, a couple of episodes of diarrhea, chills. He did not check his temperature at home. He uses oxygen at night and over the last 2 days before presenting to the emergency department would use oxygen during the day as well at 2 L/min. However his became concerned. She also became rather frustrated with his resistance to care. She finally forced him to come to the emergency department. On initial evaluation patient had an O2 sat of 66% on room air that responded rather well to application of supplemental oxygen via nasal cannula at 2 to 3 L/min with resting sats in the low to mid 90s. With ambulation or prolonged conversation patient's sats would decrease into the 80s. Patient was admitted for oxygen support and started on Remdesivir and dexamethasone. This morning patient reports he is about the same. He still becomes extremely weak and short of breath with ambulation. Hospital Course Hospital Course: Patient was admitted with acute on chronic respiratory failure exacerbated by COVID-19 infection. Initial chest x-ray as well as follow-up chest x-rays did not reveal presence of pneumonia. Patient was started on Remdesivir and dexamethasone as well as supplemental oxygen. Initially patient only required 2 to 3 L/min to keep O2 sats in the 90s with desats into the 70s and 80s with conversation, light movement such as rolling over in bed. These desaturations seemed to continue and ultimately on day 6 of his hospitalization patient did require facemask oxygen to temporarily and rather quickly raise O2 sats after prolonged desaturation lasting almost 60 minutes. Patient was weaned back to nasal cannula the same day and gradually titrated down. Because of the increased oxygen requirement a CT scan of the chest was performed which showed findings consistent with left lower lobe pneumonia from COVID-19 approximately 48 hours prior to admission patient's episodes of desaturation shortened in length. Desats would drop only to the mid to high 80s and patient would recover usually within 5 to 10 minutes. He was able to maintain resting O2 sats as high as 97% on 3 L of oxygen. After completing a 10-day course of dexamethasone and Remdesivir a long discussion was had with the patient about his ability to care for himself at home. Patient was discharged home. He will continue supplemental oxygen at 3 to 4 L/min. Patient will follow-up in my office on September 01. While patient was symptomatic several days prior to his presentation to the hospital and positive test he did complete a 10-day quarantine while hospitalized. Patient has associated diabetes and this was treated with sliding scale insulin while hospitalized. Hyperglycemia was significant due to the prolonged use of dexamethasone. At discharge patient will resume his glimepiride. Patient is a long history of chronic lung disease including pulmonary fibrosis, prior aspergillosis infection, restrictive lung disease. Patient has no documented evidence of COPD. Patient follows with Dr. Barnes of the pulmonology service. Dr. Norman was consulted during patient's hospitalization. Objective Vital signs: Temp Pulse Resp BP Pulse Ox 97.7 F 65 18 112/63 98 08/28/20 16:00 08/28/20 16:00 08/28/20 16:00 08/28/20 16:00 08/28/20 16:00 no acute distress - *Routine HEENT Exam Head: Present: normocephalic Eye: Present: EOMI, PERRL ENT: Present: mucous membranes moist - *Routine Neck Exam
[2020-09-07 10:51] LABS: POC Glucose,Bedside 475 (70-110)
[2020-09-07 10:51] LABS: POC Glucose,Bedside 508 (70-110)
== END 2020-08-28 17:48 | disposition home or self-care (01) | DRG 177 ==
LOC: ER 14:33 → ICU 16:48
PROVIDERS: Admitting Provider Family Medicine; Emergency Provider Emergency Medicine; PCP Nurse Practitioner Family; Visit Provider Family Medicine
DX: U07.1 COVID-19 (principal); J12.89 Other viral pneumonia; J96.02 Acute respiratory failure with hypercapnia; J84.9 Interstitial pulmonary disease, unspecified; J47.9 Bronchiectasis, uncomplicated; E11.9 Type 2 diabetes mellitus without complications; I10 Essential (primary) hypertension; I25.2 Old myocardial infarction; I25.10 Atherosclerotic heart disease of native coronary artery without angina pectoris; Z95.1 Presence of aortocoronary bypass graft; E03.9 Hypothyroidism, unspecified; Z87.891 Personal history of nicotine dependence; Z79.84 Long term (current) use of oral hypoglycemic drugs; Z79.899 Other long term (current) drug therapy
CPT/HCPCS: 71045; 71250; 80048; 80053; 80076; 82803; 82962; 83036; 83605; 85007; 85025; 86140; 86328; 87040; 87070; 87205; 87581; 87633; 87798; 94640; 94761; 96365; 96375; 99282; J0456

== ENCOUNTER → 2020-09-07 14:45 | Outpatient (CLI) | payer MEDICARE, MEDICAID, SELFPAY ==
--- NOTE | 2020-09-07 15:00 | XR_ITS ---
PROCEDURE: XR CHEST 2V CLINICAL HISTORY: PNM F/U COMPARISON: No exams were available for comparison FINDINGS: This is a poor inspiration. Chronic pleural thickening is seen in both lung apices. There are bilateral perihilar and lower lobe ill-defined opacities some which are likely chronic in nature but an acute pneumonic infiltrate in either lower lobe cannot be excluded. The changes at the right base are slightly more prominent suggesting acute pneumonic infiltrate superimposed on chronic changes cardiac size is grossly normal, sternal wire sutures are noted. IMPRESSION: Poor inspiration, prominent chronic pleural parenchymal changes in both lung preciado but suspect possibly acute pneumonic infiltrate at the right base somewhat more prominent than seen on on the previous study the increased density at the left base which was suspicious for acute infiltrate on the previous study has shown no significant interval improvement. Dictated by: Dr. Albert Buenrostro MD 09/08/2020 10:44 Dr. Albert Buenrostro MD in [facility] 09/08/2020 10:44
[2020-09-07 15:32] LABS: D-Dimer 1.06 ug/mL (0.15-8.0)
== END ==
PROVIDERS: Visit Provider Internal Medicine Pulmonary Disease
DX: Z86.19 Personal history of other infectious and parasitic diseases (principal)
CPT/HCPCS: 36415; 71046; 85378

== ENCOUNTER → 2020-09-08 12:45 | Outpatient (CLI) | payer MEDICARE, SELFPAY | PROVIDERS: Visit Provider Internal Medicine Pulmonary Disease | DX: U07.1 COVID-19 (principal) | CPT/HCPCS: 87070; 87205 ==

== ENCOUNTER → 2020-10-28 07:49 | Outpatient (CLI) | payer MEDICARE, OTHER, SELFPAY ==
--- NOTE | 2020-10-28 07:59 | CT_ITS ---
PROCEDURE: CT CHEST WO CON CLINICAL INDICATION: dyspnea/post covid pnx, shortness of air, oxygen use following COVID pneumonia and August of 2020 COMPARISON: CT CT CHEST WO CON from 06/16/[address] ANGIO NECK from 07/09/[address] CHEST WO CON from 08/24/2020 TECHNIQUE: Axial images obtained with sagittal and coronal reformats. All CT scans at the facility use one or more dose reduction, viz: automated exposure control, ma/kV adjustment per patient size (including targeted exams where dose is matched to indication, i.e. head), or iterative reconstruction technique. FINDINGS: There has been prior median sternotomy and CABG procedure. Extensive biapical pleural parenchymal thickening, fibrosis, bulla formation at the right apex was also present on pre COVID chest CT. Bilateral apical air bronchograms and bronchiectasis remains present. There has been progressive enlargement of an area of cavitation in the right major fissure and persistence of eccentric wall thickening. The serpiginous connection of the right fissural cavitary nodule which communicates with the larger right apical bulla is increased in diameter since the prior pre COVID CT. There is been slight progression of fibrotic change in the bases left greater than right compared to pre COVID CT. There is been interval development of bibasilar ground-glass density which was not present on pre COVID CT. There has been marked improvement in the ground-glass opacity compared with the August COVID-related CT. There has been marked improvement in mediastinal adenopathy compared to August 2020. There is no pleural or pericardial effusion. Thyroid gland is small or absent. The there is extensive trick atherosclerosis in the thoracic aorta. Pancreas is not visualized. Complete fatty atrophy or severe diffuse atrophy may be present. There are typical calcifications in the splenic artery although a linear density adjacent to or within pancreatic or splenic artery is noted of uncertain significance there is patient had prior cholecystectomy. There are scattered degenerative changes in the thoracic spine. IMPRESSION: 1. Marked improvement in appearance of COVID-related ground-glass densities and adenopathy. Slight progression of underlying fibrotic change compared with pre COVID CT.. Severe atrophy versus surgical removal of thyroid gland. 3. Pancreas not definitely visualized versus severe atrophy on partial visualization of the upper abdomen. 4. Other minor findings as described below. Dictated by: Kayla Craft 10/28/2020 10:02 Kayla Craft in [facility] 10/28/2020 10:02
== END ==
PROVIDERS: PCP Nurse Practitioner Family; Visit Provider Internal Medicine Cardiovascular Disease
DX: E11.9 Type 2 diabetes mellitus without complications (principal); E78.2 Mixed hyperlipidemia; I10 Essential (primary) hypertension; I25.10 Atherosclerotic heart disease of native coronary artery without angina pectoris; I73.9 Peripheral vascular disease, unspecified; I95.1 Orthostatic hypotension; R06.00 Dyspnea, unspecified; Z87.891 Personal history of nicotine dependence; Z95.1 Presence of aortocoronary bypass graft; Z79.84 Long term (current) use of oral hypoglycemic drugs
CPT/HCPCS: 71250

== ENCOUNTER → 2020-10-30 09:03 | Outpatient (CLI) | payer MEDICARE, OTHER, SELFPAY ==
[2020-10-30 10:02] LABS: NT Pro Brain Natriuretic Pep. 240 pg/mL (0-125)
[2020-10-30 12:50] LABS: Chloride 100 mmol/L (98-107); Sodium 139 mmol/L (136-145)
[2020-10-30 12:51] LABS: Potassium 4.1 mmoL/L (3.5-5.1)
[2020-10-30 12:53] LABS: Blood Urea Nitrogen 21 mg/dl (9-20); Estimated Glomerular Filt Rate 60 ml/min (>60); GFR (African American) 73 ML/MIN (>60)
[2020-10-30 12:54] LABS: Anion Gap 12.1 mEq/L (5-15); Calcium 9.2 mg/dl (8.4-10.2); Carbon Dioxide 31 mmol/L (22.0-30.0); Glucose 389 mg/dl (74-100)
== END ==
PROVIDERS: Visit Provider Internal Medicine Cardiovascular Disease
DX: E11.9 Type 2 diabetes mellitus without complications (principal); E78.2 Mixed hyperlipidemia; I10 Essential (primary) hypertension; I25.10 Atherosclerotic heart disease of native coronary artery without angina pectoris; I73.9 Peripheral vascular disease, unspecified; I95.1 Orthostatic hypotension; R06.00 Dyspnea, unspecified; Z87.891 Personal history of nicotine dependence; Z95.1 Presence of aortocoronary bypass graft; Z79.84 Long term (current) use of oral hypoglycemic drugs
CPT/HCPCS: 36415; 80048; 83880

== ENCOUNTER 2020-11-21 11:28 | Emergency (ER) | payer MEDICARE, OTHER, SELFPAY ==
[2020-11-21 11:28] VITALS: BP 122/57; PULSE 73; RESP 24; TEMP 36.3; O2SAT 96; BMI 23.0
--- NOTE | 2020-11-21 11:42 | XR_ITS ---
PROCEDURE: XR CHEST PORTABLE CLINICAL HISTORY: sob Shortness of breath COMPARISON: CR XR CHEST PORTABLE from 08/21/2020 CR XR CHEST PORTABLE from 08/24/2020 DX XR CHEST 2V from 09/07/[address] CHEST WO CON from 10/28/2020 FINDINGS: Prior CABG. Extensive pulmonary fibrotic changes are present as before with left apical pleural thickening, right apical pleural thickening with cavitation, fibrotic changes in the lung bases. Overall, the findings are not significantly changed. IMPRESSION: Postsurgical changes with extensive scarring and pulmonary fibrosis unchanged Dictated by: Job Garay MD 11/21/2020 14:01 Job Garay MD in [facility] 11/21/2020 14:01
--- NOTE | 2020-11-21 11:47 | HMH.EDSOB ---
ED Disposition Clinical Impression: Acute exacerbation of chronic obstructive airways disease Disposition: Home, Self-Care Condition on Discharge: Good Prescriptions: methylPREDNISolone [Medrol] 4 mg PO DIRECTED #21 pack Transmission Status: Pending to [facility] Mail Delivery Referrals: Mj Carrera MD [Primary Care Provider] - - Critical Care Critical Care Time: No Attestation: On , the high probability of a clinically significant, sudden or life threatening deterioration of the following system(s) required my full and direct attention, intervention and personal management. The time I documented below is in addition to time spent performing reported procedures but includes the following listed in this critical care notation. Medical Decision Making - Medical Records Medical records reviewed: Yes: I reviewed the patient's medical records. - Pedro Inquiry Pt receiving controlled substance: No Vital Signs: 11/21/20 11:28 11/21/20 12:23 11/21/20 12:37 Temperature 97.4 F L Temperature Source Axillary Pulse Rate [Right Radial] 73 78 73 Respiratory Rate 24 21 14 Blood Pressure [Right Arm] 122/57 L 109/69 L 104/62 L Blood Pressure Mean [Right Arm] 78 82 76 Blood Pressure Source [Right Arm] Automatic Cuff Automatic Cuff Automatic Cuff Blood Pressure Position [Right Arm] Sitting Sitting Sitting 02 Sat by Pulse Oximetry 96 99 100 Oxygen Delivery Method Nasal Cannula Room Air Nasal Cannula Oxygen Flow Rate (LPM) 4 4 4 11/21/20 13:25 11/21/20 14:01 Temperature Temperature Source Pulse Rate [Right Radial] 67 70 Respiratory Rate 16 21 Blood Pressure [Right Arm] 101/47 L 114/63 Blood Pressure Mean [Right Arm] 65 80 Blood Pressure Source [Right Arm] Automatic Cuff Automatic Cuff Blood Pressure Position [Right Arm] Supine Supine 02 Sat by Pulse Oximetry 100 100 Oxygen Delivery Method Nasal Cannula Room Air Oxygen Flow Rate (LPM) 4 4 - Lab Data Lab Results 11/21/20 11:42: VBG pH 7.35, VBG pCO2 49.4, VBG pO2 32.8, VBG HCO3 26.5, VBG Total CO2 28.0 H, VBG O2 Saturation 61.5, VBG Base Excess 0.8 11/21/20 12:09: WBC 11.1 H, RBC 4.87, Hgb 13.7 L, Hct 42.8, MCV 87.8, MCH 28.1, MCHC 32.0, RDW 14.7, Plt Count 167, MPV 8.1, Neut % (Auto) 85.9 H, Lymph % (Auto) 8.3 L, Owsley % (Auto) 5.0, Eos % (Auto) 0.6, Baso % (Auto) 0.3, Neut # (Auto) 9.5 H, Lymph # (Auto) 0.9, Owsley # (Auto) 0.6, Eos # (Auto) 0.1, Baso # (Auto) 0.0, Total Counted 100, Neutrophils % (Manual) 82 H, Lymphocytes % (Manual) 10, Monocytes % (Manual) 7, Eosinophils % (Manual) 1, Platelet Estimate Normal, RBC Morphology Normal 11/21/20 12:09: Sodium 138, Potassium 4.2, Chloride 99, Carbon Dioxide 32 H, Anion Gap 11.2, BUN 23 H, Creatinine 1.20, Estimated Creat Clear 62, Estimated GFR 60, Est GFR ( Amer) 73, Glucose 125 H, Calcium 11.1 H, Total Bilirubin 0.5, AST 28, ALT 11 L, Alkaline Phosphatase 92, Troponin I < 0.01, Total Protein 8.2 D, Albumin 4.2, Globulin 4.0 H, Albumin/Globulin Ratio 1.1 11/21/20 12:09: SARS-CoV-2 IgG Ab (Rapid) Positive A, SARS-CoV-2 IgM Ab (Rapid) Positive A 11/21/20 12:09: NT-Pro-B Natriuret Pep 242 H Result diagrams: 11/21/20 12:09 11/21/20 12:09 Orders (Tests/Meds): ED MEDICATIONS Discontinued Medications Generic Name Dose Route Start Last Admin Trade Name Freq PRN Reason Stop Dose Admin Albuterol/Ipratropium 3 ml 11/21/20 11:42 Albuterol/Ipratropium 3 Ml Neb IH 11/21/20 11:43 ONCE ONE Iopamidol 70 ml 11/21/20 13:11 11/21/20 13:13 Iopamidol-370 (76%);100ml Bottle IV 11/21/20 13:12 70 ml ONCE ONE Administration Sodium Chloride 50 ml 11/21/20 13:11 11/21/20 13:12 0.9 % Sodium Chloride 50 Ml Vial IV 11/21/20 13:12 50 ml ONCE ONE Administration Sodium Chloride 10 ml 11/21/20 13:11 11/21/20 13:12 Sodium Chloride 0.9% 10ml Syr (Rad Only) IV 11/21/20 13:12 10 ml ONCE ONE Administration ORDERS Category Date Time Status Troponin I Q3H Lab 11/21/20
--- NOTE | 2020-11-21 12:05 | ECG_ITS ---
APPROVED REPORT Exam: Resting ECG HR:74 bpm ECG Measurements Heart Rate 74 AXES MT 200 P 81 QRSd 92 QRS 95 QT 360 T 57 QTc 399 Conclusion Normal sinus rhythm Rightward axis Nonspecific T wave abnormality Abnormal ECG Electronically signed by : Mj Rivera, 11/22/2020 20:24:59
[2020-11-21 12:23] VITALS: BP 109/69; PULSE 78; RESP 21; O2SAT 99
[2020-11-21 12:28] LABS: Basophils % 0.3 % (0.1-2.0); Eosinophils # 0.1 K/mm3 (0.0-0.4); Eosinophils % 0.6 % (0.1-12.0); Hematocrit 42.8 % (42.0-52.0); Hemoglobin 13.7 g/dL (14.1-18.0); Lymphocytes # 0.9 K/mm3 (0.7-4.5); Lymphocytes % 8.3 % (10-50); Mean Corpuscular Hemoglobin 28.1 pg (27.0-31.2); Mean Corpuscular Volume 87.8 fl (80-94); Mean Platelet Volume 8.1 fl (7.4-10.4); Monocytes # 0.6 K/mm3 (0.1-1.0); Neutrophils # 9.5 K/mm3 (1.8-7.8); Neutrophils % 85.9 % (37.0-80.0); Platelet Count 167 K/mm3 (142-424); Red Blood Count 4.87 M/mm3 (4.60-6.20); Red Cell Distribution Width 14.7 % (11.5-17.5); White Blood Count 11.1 K/mm3 (4.8-10.8)
[2020-11-21 12:30] LABS: MANUAL DIFFERENTIAL MANUAL DIFFERENTIAL (MANUAL DIFF)
--- NOTE | 2020-11-21 12:31 | CT_ITS ---
PROCEDURE: CT ANGIO CHEST CLINCIAL INDICATION: dyspnea/hypoxia History of Covid19 COMPARISON: CT CT CHEST WO ARLENE from 10/28/2020 TECHNIQUE: IV Contrast: 70ML Isovue 370 Axial images obtained with sagittal and coronal reformats. All CT scans at the facility use one or more dose reduction, viz: automated exposure control, ma/kV adjustment per patient size (including targeted exams where dose is matched to indication, i.e. head), or iterative reconstruction technique. FINDINGS: HEART AND MEDIASTINAL STRUCTURES: No evidence of pulmonary embolus, aortic aneurysm, or aortic dissection. There has prior median sternotomy/CABG. LUNGS AND PLEURAL SPACES: Extensive pulmonary fibrosis once again noted. Left upper lobe collapse with bronchiectasis is unchanged. Collapse of the posterior segment of the right upper lobe is noted with bronchiectasis. No change in the right apical cavity. The cavity in the right upper lobe posteriorly is unchanged. This contains a central nodular region fissural nodule in the right minor fissure is unchanged at 7 mm. Lower lobe pulmonary fibrotic changes with honeycombing once again noted. There is mild diffuse ground-glass attenuation in the lower lobes which is nonspecific. BONY STRUCTURES: Degenerative changes thoracic spine UPPER ABDOMEN: Pneumobilia. Prior cholecystectomy. ADDITIONAL FINDINGS: No other significant abnormalities. IMPRESSION: 1. No evidence of acute pulmonary embolus. 2. Diffuse pulmonary fibrotic changes with cavitation in the right upper lobe and with bronchiectasis and left upper lobe collapse and collapse of the apical posterior segment of the right upper lobe unchanged. Ground-glass attenuation in the lung bases is unchanged. Dictated by: Job Garay MD 11/21/2020 13:55 Job Garay MD in [facility] 11/21/2020 13:55
[2020-11-21 12:32] LABS: Alanine Aminotransferase 11 U/L (12-78); Albumin Level 4.2 g/dl (3.5-5.0); Albumin/Globulin Ratio 1.1 (1.1-1.8); Alkaline Phosphatase 92 U/L (38-126); Anion Gap 11.2 mEq/L (5-15); Aspartate Amino Transferase 28 U/L (17-59); Bilirubin,Total 0.5 mg/dl (0.2-1.3); Blood Urea Nitrogen 23 mg/dl (9-20); Calcium 11.1 mg/dl (8.4-10.2); Carbon Dioxide 32 mmol/L (22.0-30.0); Chloride 99 mmol/L (98-107); Creatinine Clearance Estimated 62 mL/min (50-200); Estimated Glomerular Filt Rate 60 ml/min (>60); GFR (African American) 73 ML/MIN (>60); Glucose 125 mg/dl (74-100); Potassium 4.2 mmoL/L (3.5-5.1); Sodium 138 mmol/L (136-145); Total Protein,Serum 8.2 g/dl (6.3-8.2)
[2020-11-21 12:33] LABS: VBG Base Excess 0.8 mmol/L (-2.4-2.3); VBG HCO3 26.5 mmol/L (23-30); VBG Oxygen Saturation 61.5 % (50-70); VBG PCO2 49.4 mmol/L (35-51); VBG PH 7.35 mmol/L (7.31-7.41); VBG PO2 32.8 mmol/L (28-40)
[2020-11-21 12:37] VITALS: BP 104/62; PULSE 73; RESP 14; O2SAT 100
[2020-11-21 12:43] LABS: Eosinophils % 1 % (0-3); Lymphocytes % 10 % (10-50); Monocytes % 7 % (2-9); Neutrophils % 82 % (42-76); Platelet Estimate Normal; RBC Morphology Normal; Total Cells Counted 100
[2020-11-21 12:46] LABS: Troponin I < 0.01 ng/ml (0.00-0.034)
[2020-11-21 12:53] LABS: Coronavirus 19 IgG Antibody Positive (Negative); Coronavirus 19 IgM Antibody Positive (Negative)
--- NOTE | 2020-11-21 13:00 | PC.NURSE ---
pt going to rad
--- NOTE | 2020-11-21 13:16 | PC.NURSE ---
pt back from rad
[2020-11-21 13:25] VITALS: BP 101/47; PULSE 67; RESP 16; O2SAT 100
[2020-11-21 13:30] LABS: NT Pro Brain Natriuretic Pep. 242 pg/mL (0-125)
[2020-11-21 14:01] VITALS: BP 114/63; PULSE 70; RESP 21; O2SAT 100
[2020-11-21 14:40] VITALS: BP 114/63; PULSE 65; RESP 20; TEMP 36.3; O2SAT 97
== END 2020-11-21 14:40 | disposition home or self-care (01) ==
PROVIDERS: Emergency Provider Emergency Medicine; PCP Family Medicine
DX: J44.1 Chronic obstructive pulmonary disease with (acute) exacerbation (principal); Z86.16 Personal history of COVID-19; E11.9 Type 2 diabetes mellitus without complications; I10 Essential (primary) hypertension; E78.5 Hyperlipidemia, unspecified; Z99.81 Dependence on supplemental oxygen; K21.9 Gastro-esophageal reflux disease without esophagitis; E03.9 Hypothyroidism, unspecified; I25.2 Old myocardial infarction; Z79.899 Other long term (current) drug therapy
CPT/HCPCS: 71045; 71275; 80053; 82803; 83880; 84484; 85007; 85025; 86328; 93005; 96374; 99284; Q9967; U0003

== ENCOUNTER → 2020-11-24 09:45 | Outpatient (CLI) | payer MEDICARE, OTHER, SELFPAY | PROVIDERS: PCP Family Medicine; Visit Provider Internal Medicine Pulmonary Disease | DX: J44.9 Chronic obstructive pulmonary disease, unspecified (principal) | CPT/HCPCS: 94010; 94618 ==

== ENCOUNTER → 2021-01-25 14:55 | Outpatient (CLI) | payer MEDICARE, SELFPAY ==
[2021-01-25 16:40] LABS: Anion Gap 11.4 mEq/L (5-15); Blood Urea Nitrogen 21 mg/dl (9-20); Calcium 8.6 mg/dl (8.4-10.2); Carbon Dioxide 29 mmol/L (22.0-30.0); Chloride 102 mmol/L (98-107); Estimated Glomerular Filt Rate 60 ml/min (>60); GFR (African American) 73 ML/MIN (>60); Glucose 385 mg/dl (74-100); Potassium 4.4 mmoL/L (3.5-5.1); Sodium 138 mmol/L (136-145)
[2021-01-25 16:48] LABS: NT Pro Brain Natriuretic Pep. 133 pg/mL (0-125)
== END ==
PROVIDERS: Visit Provider Urology
DX: E78.2 Mixed hyperlipidemia (principal); I25.10 Atherosclerotic heart disease of native coronary artery without angina pectoris; I70.1 Atherosclerosis of renal artery; I73.9 Peripheral vascular disease, unspecified; I95.1 Orthostatic hypotension; R06.02 Shortness of breath; Z95.1 Presence of aortocoronary bypass graft
CPT/HCPCS: 36415; 80048; 83880

== ENCOUNTER → 2021-02-23 07:48 | Outpatient (CLI) | payer MEDICARE, SELFPAY | PROVIDERS: PCP Family Medicine; Visit Provider Internal Medicine Pulmonary Disease | DX: R06.09 Other forms of dyspnea (principal) | CPT/HCPCS: 94010 ==

== ENCOUNTER → 2021-02-26 07:18 | Outpatient (CLI) | payer MEDICARE, SELFPAY ==
--- NOTE | 2021-02-26 07:19 | CT_ITS ---
PROCEDURE: CT HR CHEST X3 CLINICAL HISTORY: Shortness of breath. Recent prior Covid. Follow-up cavitary lesion. COMPARISON: CT CT ANGIO CHEST from 11/21/2020 TECHNIQUE: Axial images obtained with sagittal and coronal reformats. All CT scans at the facility use one or more dose reduction, viz: automated exposure control, ma/kV adjustment per patient size (including targeted exams where dose is matched to indication, i.e. head), or iterative reconstruction technique. FINDINGS: Severe emphysematous changes and diffuse bilateral areas of pulmonary fibrosis noted. Cavitary lesion in the right upper lobe is unchanged. Area of bullous emphysema in the right upper lobe also unchanged. Chronic collapse of the left upper lobe and posterior segment of the right upper lobe is unchanged. No pleural effusion or pneumothorax. There is some calcification of the thoracic aorta without aneurysm. Scattered calcified granulomata with calcified bilateral hilar lymph nodes noted. Thickening of multiple interlobular septae noted bilaterally with scattered bilateral subpleural nodules. There are some diffuse degenerative changes of the thoracic spine. Multiple mediastinal lymph nodes are present similar to prior exam. Images of the upper abdomen show some diffuse calcifications associated with the pancreas consistent with chronic pancreatitis. No adrenal mass. No other abnormality. IMPRESSION: Severe emphysematous changes and sequela of interstitial lung disease with diffuse bilateral areas of pulmonary fibrosis with area of bullous emphysema in the right upper lobe, chronic collapse of the left upper lobe and posterior segment of the right upper lobe. Multiple mediastinal lymph nodes similar to prior exam. Unchanged cavitary lesion in the right upper lobe. Repeat short-term follow-up chest CT in 3 months is recommended. Dictated by: Per Rodriguez MD 02/26/2021 08:12 Per Rodriguez MD in [facility] 02/26/2021 08:12
== END ==
PROVIDERS: PCP Family Medicine; Visit Provider Internal Medicine Pulmonary Disease
DX: J84.10 Pulmonary fibrosis, unspecified (principal); J84.9 Interstitial pulmonary disease, unspecified; R06.02 Shortness of breath
CPT/HCPCS: 71250

== ENCOUNTER → 2021-03-10 10:00 | Outpatient (CLI) | payer MEDICARE, SELFPAY ==
--- NOTE | 2021-03-10 10:11 | CA_ITS ---
APPROVED REPORT EXAM: Comprehensive 2D, Doppler, and color-flow Echocardiogram with Bubble study Laundry Operator Wash Room: Elli Hopkins RCS, RVS Ht: 5 ft 11 in Wt: 169lbs BSA: 1.96 BP: 105/53 mmHg Indications: S/p COVID-19 06/2020 now O2 dependent, CAD, HTN, DM Echo Enhancing Agent Comments: Negative bubble study 2D Dimensions IVSd 1.27 cm LVEF (Visual) 66.80 % PWd 1.00 cm LA Volume 42.50 mL LVDd 4.18 cm LA Volume Index 21.70 mL/m2 (M/F) 16-34 LVDs 2.65 cm LVOT 1.86 cm (M/F) 1.5-2.5 M-Mode Dimensions RVDd 3.25 cm (0.9-2.6) LA Diam 3.77 cm (1.9-4.0) LVDd 4.32 cm (3.5-5.7) Ao Diam 3.26 cm (2.0-3.7) LVDs 3.28 cm (3.5-5.7) IVSd 0.97 cm (0.6-1.1) PWd 0.80 cm (0.6-1.1) EF (Teich) 48.20% EPSs 0.64 cm FS 24.10% EDV (Teich) 84.00 mL TAPSE 1.66 (<1.7) ESV (Teich) 43.50 mL LV Diastology E Decel Time 263.00 (160-240 msec) E/A Ratio 0.81 MED E' 8.50 (< 7 cm/sec) MED A' 11.90 cm/s E'/MED E' Ratio 5.61 (>14) LAT E' 7.10 (<10 cm/sec) LAT A' 10.00 cm/s E/LAT E' Ratio 6.72 (>14) Aortic Valve LVOT Max 99.00 (70-110 cm/s) LVOT VTI 18.40 cm AoV Peak Ascencion. 126.00 (50-130 cm/s) AO Peak GR. 6.40 mmHg AO Mean GR. 3.30 (<5 mmHg) AO VTI 24.59 (18-25 cm) MICHAEL (VTI) 2.03 (2.5-4.5 cm2) Mitral Valve MV A Velocity 59.00 (40-130 cm/s) E/A Ratio 0.81 MV Decel. Time 263.00 (160-240 ms) Pulmonary Valve PV Peak Velocity 85.00 (50-150 cm/s) Tricuspid Valve TR P. Velocity 406.00 cm/s RAP Estimate 10.00 mmHg RVSP 75.90 mmHg Left Ventricle Left atrium is mildly enlarged, left ventricle is normal size, mild concentric left ventricular hypertrophy, visually estimated ejection fraction 55% with no regional wall motion abnormality, grade 1 diastolic dysfunction seen without tissue Doppler evidence of raise left atrial pressure. There is abnormal septal motion. Right Ventricle Right atrium and right ventricle are moderately enlarged, contractility of the right ventricle is mildly reduced. Atria Intra-atrial septum is intact, agitated saline contrast study fails to identify intracardiac shunt. Aortic Valve Aortic valve is minimally thickened and fibrosed, there is no aortic stenosis or aortic insufficiency. Mitral Valve Mitral valve is grossly normal, there is mild mitral regurgitation. Tricuspid Valve Tricuspid valve grossly normal, there is mild tricuspid regurgitation, calculated right ventricular systolic pressure is 75 mmHg assuming right atrial pressure of 10 mmHg. Pulmonic Valve Pulmonic valve is poorly visualized. Great Vessels Aortic root is normal size. Pericardium No significant pericardial effusion noted. Conclusion 1. Biatrial enlargement, normal left ventricular size, mild concentric left ventricular hypertrophy, visually estimated ejection fraction 55% with no regional wall motion abnormality, grade 1 diastolic dysfunction seen without tissue Doppler evidence of raise left atrial pressure. There is abnormal septal motion. 2. Moderately enlarged right ventricle with mild reduced contractility. 3. Mild mitral and tricuspid regurgitation, calculated right ventricular systolic pressure 75 mmHg assuming right atrial pressure of 10 mmHg. 4. No significant pericardial effusion noted, inferior vena cava is not well visualized. Electronically signed by : Lucho Alberts, 03/12/2021 10:17:33
== END ==
PROVIDERS: PCP Family Medicine; Visit Provider Internal Medicine Pulmonary Disease
DX: R06.00 Dyspnea, unspecified (principal)
CPT/HCPCS: 93306

== ENCOUNTER 2021-04-13 10:00 | Outpatient (RCR) | payer MEDICARE, SELFPAY | END 2021-07-21 10:36 | disposition home or self-care (01) | LOC: PT 10:00 | PROVIDERS: Visit Provider Internal Medicine Pulmonary Disease | DX: J44.9 Chronic obstructive pulmonary disease, unspecified (principal) | CPT/HCPCS: G0424 ==

== ENCOUNTER → 2021-05-18 14:19 | Outpatient (CLI) | payer MEDICARE, SELFPAY ==
--- NOTE | 2021-05-18 | US_ITS ---
PROCEDURE: MM DIG MAMM BI DX W/CAD Digital Breast Tomosynthesis Included US US BREAST LT COMPLETE US US BREAST RT COMPLETE CLINICAL INDICATION: nodule COMPARISON: US US BREAST LT COMPLETE from 05/18/2021 US US BREAST RT COMPLETE from 05/18/2021 TECHNIQUE: Standard CC and MLO images and 3D Tomosynthesis was obtained. R2 CAD reviewed. FINDINGS: Increased glandular tissue is present in the retroareolar region on both sides consistent with bilateral gynecomastia left greater than right. No suspicious nodules masses or microcalcifications. No skin thickening or architectural distortion. Left breast ultrasound: Decreased echogenicity noted in the retroareolar region flame like in nature consistent with gynecomastia. No suspicious nodule apparent. Right breast ultrasound: Unremarkable. No cyst or mass apparent. IMPRESSION: Benign findings. No evidence of malignancy. Bilateral gynecomastia left more extensive than right BI-RAD Category: 2 Benign Finding FOLLOW-UP: As clinically warranted (A letter has been sent to the patient regarding results of the study.) Dictated by: Job Garay MD 05/24/2021 11:46 Job Garay MD in [facility] 05/24/2021 11:46
== END ==
PROVIDERS: PCP Family Medicine; Visit Provider Nurse Practitioner Family
DX: N63.20 Unspecified lump in the left breast, unspecified quadrant (principal); N62 Hypertrophy of breast
CPT/HCPCS: 76641; 77062; 77066; G0279

== ENCOUNTER → 2021-05-28 12:17 | Outpatient (CLI) | payer MEDICARE, SELFPAY ==
--- NOTE | 2021-05-28 13:05 | CA_ITS ---
APPROVED REPORT EXAM: Comprehensive 2D, Doppler, and color-flow Echocardiogram Smocker: Eva Weldon RT(R) Ht: 5 ft 11 in Wt: 169lbs BSA: 1.96 BP: 86/39 mmHg Indications: SOA, Patient on O2, COPD, ex smoker, palpitations, HTN, DM, hyperlipidemia, GERD, hx [facility]. Post COVID 08/2020. Ordered as a bubble study only. Echo Enhancing Agent Indication: Rule out Shunt Agent(s) / Amount(s) Used: Agitated Saline 20 cc Conclusion 1. Limited saline contrast study was obtained to exclude presence of intracardiac shunt. 2. Agitated saline contrast study fails to identify intracardiac shunt. Electronically signed by : Lucho Alberts MD 05/28/2021 13:41:36
[2021-05-28 13:12] LABS: Blood Urea Nitrogen 16 mg/dl (9-20); Estimated Glomerular Filt Rate 67 ml/min (>60); GFR (African American) 81 ML/MIN (>60)
[2021-05-28 13:17] LABS: C-Reactive Protein 3.4 mg/L (0-4)
[2021-05-28 13:19] LABS: Uric Acid 5.9 mg/dl (3.5-8.5)
--- NOTE | 2021-05-28 13:28 | CT_ITS ---
PROCEDURE: CT ANGIO CHEST PE PROTOCOL CLINCIAL INDICATION: Hypoxia COMPARISON: CT ABDPELWO CT abdomen pelvis wo con from 03/02/[address] ANGIO CHEST from 11/21/2020 TECHNIQUE: IV Contrast: 70ML Isovue 370 Axial images obtained with sagittal and coronal reformats. All CT scans at the facility use one or more dose reduction, viz: automated exposure control, ma/kV adjustment per patient size (including targeted exams where dose is matched to indication, i.e. head), or iterative reconstruction technique. FINDINGS: HEART AND MEDIASTINAL STRUCTURES: No evidence of pulmonary embolus, aortic aneurysm, or aortic dissection. Prior median sternotomy/CABG. Mildly prominent lymph node is present in the left infrahilar region in the pre esophageal area at 2 cm previously 1.8 cm. Mildly prominent nodes are present in the right hilum as well. LUNGS AND PLEURAL SPACES: Extensive pulmonary fibrotic changes once again noted with left upper lobe collapse of bronchiectasis as well as collapse of the posterior segment of the right upper lobe with bronchiectasis. There is a right apical cavity which is unchanged. The cavity in the right upper lobe inferiorly in the region of the major fissure is slightly smaller. There remains a small nodular component. This cavity appears to connect to the right apical cavity peripheral pulmonary fibrotic changes are present in the lower lobes and in the lung bases. Along the inferior aspect of this smaller cavity there is a parenchymal opacity which is at the junction of the right minor fissure and major fissure. This area measures approximately 1.6 cm. This could be due to an area of pulmonary fibrosis but appears slightly more prominent. Continued follow-up is suggested to exclude the possibility of a neoplastic process such is a scar carcinoma. No effusions. BONY STRUCTURES: No acute bony abnormalities apparent. UPPER ABDOMEN: Pneumobilia is present. Low-density areas present involving the spleen superiorly at 12 mm probably unchanged. 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 Please correlate with surgical history. Moderate amount of colonic feces ADDITIONAL FINDINGS: No other significant abnormalities. IMPRESSION: 1. No evidence of pulmonary embolus. 2. Mild left and right hilar adenopathy slightly increased from the previous exam. 3. Pulmonary fibrosis. Right upper lobe cavitary lesions once again noted which may actually connect 1 in the right apex unchanged and 1 in the right upper lobe posteriorly along the major fissure slightly smaller with persistent nodular component with parenchymal opacity along the inferior aspect of this lesion slightly larger and may be due to pulmonary scar or even neoplasm. Continued follow-up suggested.. 4. Other nonacute findings as described above. Dictated by: Job Garay MD 05/31/2021 10:01 Job Garay MD in [place] 05/31/2021 10:01
[2021-05-28 13:31] LABS: Erythrocyte Sedimentation Rate 16 mm/hr (0-20)
[2021-05-30 07:56] LABS: RA Latex Turbid. <10.0 IU/mL (0.0-13.9)
[2021-05-30 16:36] LABS: Anti-Centromere B Antibodies <0.2 AI (0.0-0.9); Anti-DNA (DS) Ab Qn <1 IU/mL (0-9); Antiribosomal P Antibodies <0.2 AI (0.0-0.9); Antiscleroderma-70 Antibodies <0.2 AI (0.0-0.9); RNP Antibodies <0.2 AI (0.0-0.9); Sjogren's Anti-SS-A <0.2 AI (0.0-0.9); Sjogren's Anti-SS-B 0.2 AI (0.0-0.9)
[2021-05-31 14:17] LABS: Actin (Smooth Muscle) Antibody 7 Units (0-19); Aldolase 3.6 U/L (3.3-10.3)
[2021-05-31 20:13] LABS: Antinuclear Antibodies, IFA Positive (.)
[2021-06-01 01:07] LABS: Anti-Cyclic Citrullinated Pept 5 units (0-19)
[2021-06-01 08:31] LABS: Cytoplasmic (C-ANCA) <1:20 titer (Neg:<1:20); Perinuclear (P-ANCA) <1:20 titer (Neg:<1:20)
[2021-06-02 10:45] LABS: Aspergillus fumigatus IgG Negative (Negative); Pigeon Serum Abs Negative (Negative)
[2021-06-05 16:32] LABS: Antinuclear Antibodies (ANA) NEGATIVE
== END ==
PROVIDERS: Visit Provider Internal Medicine Pulmonary Disease
DX: R06.00 Dyspnea, unspecified; J84.9 Interstitial pulmonary disease, unspecified; J98.4 Other disorders of lung; J84.10 Pulmonary fibrosis, unspecified; J44.9 Chronic obstructive pulmonary disease, unspecified; I25.10 Atherosclerotic heart disease of native coronary artery without angina pectoris; Z86.16 Personal history of COVID-19; Z87.891 Personal history of nicotine dependence
CPT/HCPCS: 36415; 71275; 82085; 82565; 83516; 84520; 84550; 85651; 86038; 86140; 86200; 86225; 86235; 86255; 86256; 86331; 86431; 86602; 86606; 86609; 93308; Q9967

== ENCOUNTER → 2021-07-01 10:45 | Outpatient (CLI) | payer MEDICARE, SELFPAY ==
--- NOTE | 2021-07-01 | CA_ITS ---
APPROVED REPORT Right Lower Extremity Venous Study for DVT. Patient Manager: [place] Indications Lower Extremity Pain: Right Lower Extremity Edema: Right Shortness of breath Patient states his leg started hurting 06/27/21. No known trauma. Risk Factors Cardiac Disease Obesity Vein Imaging CFV (R): compressive, spontaneous, phasic, augmentation FEM (R): compressive, spontaneous, phasic, augmentation POP (R): compressive, spontaneous, phasic, augmentation PTV (R): Compressible GSV (R): compressive, spontaneous, phasic, augmentation Peroneals (R):Compressible Findings No evidence of DVT or superficial thrombophlebitis in the veins scanned of the right lower extremity. Conclusion No evidence of DVT or superficial thrombophlebitis in the veins scanned of the right lower extremity. Electronically signed by : Job Garay MD 07/01/2021 15:05:53
== END ==
PROVIDERS: PCP Nurse Practitioner Family; Visit Provider Nurse Practitioner Family
DX: M25.461 Effusion, right knee (principal); M79.89 Other specified soft tissue disorders
CPT/HCPCS: 93971

== ENCOUNTER 2021-09-09 15:35 | Emergency (ER) | payer MEDICARE, SELFPAY ==
[2021-09-09 15:35] VITALS: BMI 23.6
--- NOTE | 2021-09-09 15:43 | ECG_ITS ---
APPROVED REPORT Exam: Resting ECG HR:99 bpm ECG Measurements Heart Rate 99 AXES MO 260 P 62 QRSd 118 QRS 128 QT 292 T -3 QTc 374 Conclusion Sinus rhythm with 1st degree AV block Right ventricular hypertrophy with repolarization abnormality Abnormal ECG Electronically signed by : Mj Rivera MD 09/10/2021 09:53:42
[2021-09-09 18:30] VITALS: BP 0/0; PULSE 0; RESP 0; TEMP -17.7; TEMP 0; O2SAT 0
--- NOTE | 2021-09-09 19:53 | PC.NURSE ---
At approx. 1529 arrived with patient and came in and advised that he was unresponsive. Staff responded immediately with a stretcher to car parked outside under the awning. , deputy sheriff bailiff remained with the patient and was performing compressions. PT was pulled out of the car on to the stretcher and brought to room 3 and immediately moved over to bed. PT hooked up to zoll monitor which should asystole. Compressions resumed and 18G IV was established in the left AC. IO was also established in the left tib fib with no complications. Fluids were started at this time. Please see the below timeline for events that occurred during the code. TOD called @ 1557. and family were taken to the triage room and Dr. Foster went in and spoke with family and explained events and told them patient had passed. Post-mortem care performed and family was allowed back into the room. [facility] was contacted (see timeline for details) and ruled out. Contacted valve grinder and notified them of . Pt family [facility]. Contacted [facility] for courtesy cart. Advised family to take all the time they needed. 1530-pt arrived in full arrest 1531-18 G IV established in L AC, IO established in L tib fib, pulse check showed asystole, 1mg of epi given, fluids started 1534- pulse check, asystole, 1mg of epi given, CPR resumed 1537-pulse check, PEA, 1mg of epi given, CPR resumed 1540- pulse check, pulse noted at this time, CPR stopped 1543-MD at bedside with US looking at cardiac activity, pt has minimal heart activity 1546-pt lost pulse again at this time. Breanna, pharmacist mixing norepi drip at this time time, compressions resumed, asystole on monitor 1550- pulse check, palpable pulse at this time. MD was going to attempt ART line, Norepi was started @ 50ml/hr per Giovanna 1552- pulse lost again at this time, PEA on monitor, 1mg of epi given 1555-pulse check, PEA on monitor, compressions resumed 1557- pulse check, asystole, MD terminated efforts. TOD 1557 At 1620 contacted [facility] and notified them of spoke with Reina Luna who advised pt could be ruled out. Case# [id number]. At 1630 contacted [facility] and spoke with Carli and notified her of . Advised both Eric and Tejas were with families but they would be up as soon as they were available. Eric arrived at approx. 1700, advised him of patient and noted that they wanted to use [facility]. Autopsy form completed, and certificate completed. They went in and spoke with family. [facility] left with patient's body at 1835.
--- NOTE | 2021-09-15 09:45 | [facility].EDCPR ---
ED Disposition Clinical Impression: Cardiac arrest Disposition: Condition on Discharge: Critical Referrals: Ema Curran APRN [Primary Care Provider] - Time of Disposition: 15:30 - Critical Care Critical Care Time: Yes Attestation: On 09/09/21, the high probability of a clinically significant, sudden or life threatening deterioration of the following system(s) required my full and direct attention, intervention and personal management. The time I documented below is in addition to time spent performing reported procedures but includes the following listed in this critical care notation. Total Critical Care Time: 30 Vital system(s) involved:: Circulatory Failure My critical care processes included: Assessment & monitoring of V/S, Medication Orders and management, Documentation Probable Cause of : Cardiac arrest [facility] Code Documentation - Arrest Information Outside of Hospital The Code Document Section documentation for [id number] Bhavin Saleh was populated with data that defaulted in from the cardiac/vascular sonographer in the Code Assessment on f_Reg Service Date] to provide within this report, the status and treatment of the patient in the ED during a Code. This documentation will be supplemented with my direct findings within the body of the report. Yes, Autopsy report was filled out as well Date Treatment Initiated: 09/09/21 Time Treatment Initiated: 15:30 Treatment Initiated By: Emergency Department on Arrival Location of Arrest: En route to hospital Arrest Witnessed: Yes (Patient loss conciousness 5 minutes prior to arrival, witnessed by his wif) Estimated Down Time: 5 minutes prior to CPR being initiated by ED staff - Arrest Information in Hospital Date of Arrest: 09/09/21 Time of Arrest: 15:30 Location of Arrest In-house: Emergency Department Type of Arrest In-house: Respiratory In-house Arrest Witnessed: No Last Seen Well: apporx. 10 mins TIME RECORDER per - ALS Code Inititation ALS Initiated By: Hospital Staff ALS Type: ACLS ALS Initiated Start Time: 15:30 - Patient Condition At Code Start Condition of Patient at Start of Code: Pulseless, Apneic Monitoring Devices: ECG Monitor, Pulse Oximeter - Circulation Initial Cardiac Rhythm: PEA - Oxygenation Oxygen Breathing Status: Apneic Oxygen Delivery Method: Bag-Valve Mask - Labs Fingerstick Blood Glucose: 132 - Code End Time Code Ended: 15:57 Patient Successfully Resuscitated: No Reason Code Ended: - Efforts Terminated Family Members Present During Code: No Names of All Individuals Present at Code: Dr. Foster. Dai Hernandez. Elham Esquivel. Sofy Watts. Julia Fontenot. Giovanna Roe. Yasmany Travis. Cate (RT). Coleen (RT) - Patient Expiration Date: 09/09/21 Expiration Time: 15:30 Pronounced by: Mare Foster MD Time Pronounced: 15:30 Post Mortem Care Provided: Yes Next of Kin Notified: Yes, and Family Next of Kin Notification Time: 15:45 Organ Donor: No Ezekiel Notified: Yes Attending Physician Called: Yes Supervisor Final Case: No Supervisor Final Notified: No Medical Decision Making - Medical Records Medical records reviewed: Yes: I reviewed the patient's medical records. - Pedro Inquiry Pt receiving controlled substance: No Vital Signs: 09/09/21 18:30 Temperature 0 F L Pulse Rate 0 L Respiratory Rate 0 L Blood Pressure 0/0 L - Lab Data Lab results reviewed: Yes: I reviewed the patient's lab results. Orders (Tests/Meds): ED MEDICATIONS Discontinued Medications Generic Name Dose Route Start Last Admin Trade Name Tayo PRN Reason Stop Dose Admin Epinephrine HCl 1 mg 09/09/21 19:50 09/09/21 15:35 Epinephrine 0.1 Mg/Ml 10ml Syringe (Crash Cart) IV 09/09/21 19:51 1 mg ONCE ONE Administration Norepinephrine Bitartrate 8 mg 258 mls @ 15.48 mls/hr 09/09/21 15:45 09/09/21 16:00 / Dextrose IV 10/09/21 15:44 8 mcg/min .[id number] 15.48 mls/hr Administration Protoco
== END 2021-09-09 18:35 | disposition expired ==
LOC: ER 15:40
PROVIDERS: Emergency Provider Student in an Organized Health Care Education/Training Program; PCP Nurse Practitioner Family
DX: I46.9 Cardiac arrest, cause unspecified (principal); E11.9 Type 2 diabetes mellitus without complications; J44.9 Chronic obstructive pulmonary disease, unspecified; K21.9 Gastro-esophageal reflux disease without esophagitis; I25.10 Atherosclerotic heart disease of native coronary artery without angina pectoris; E03.9 Hypothyroidism, unspecified; I10 Essential (primary) hypertension; E78.5 Hyperlipidemia, unspecified; I25.2 Old myocardial infarction; Z86.16 Personal history of COVID-19; Z87.891 Personal history of nicotine dependence
CPT/HCPCS: 92950; 93005; 96365; 96367; 96375; 99291